=== PATIENT | female | born 1950 | race Caucasian/White ===

== ENCOUNTER 2018-06-14 13:29 | Outpatient (CLI) | payer MEDICARE, MEDICAID, SELFPAY ==
[2018-06-14] VITALS (9 sets, daily range): BP systolic 108–157; BP diastolic 62–84; PULSE 61–69; RESP 16–18; TEMP 36.4; O2SAT 95–100
--- NOTE | 2018-06-14 13:30 | DI.RAD.S_ITS ---
PROCEDURE: PAIN L/S TRANSFORAMINAL INJECT INDICATIONS: INTERVERTEBRAL DISC DISPLACEMENT FINDINGS: Fluoroscopic spot filming was performed to verify placement of spinal needles at the left L L3-L4 level(s), with reference to CT scanning from February of 2014. Appropriate location(s) of the needle tip(s) was confirmed by injection of iodinated contrast. IMPRESSION: Successful left L3-L4 perineural needle tip localization for transforaminal epidural steroid injection. Prior spine fusion procedure from reference to comparison CT 03/11/14 shows the upper tip of the bilateral fusion rods at the L3-L4 posterior element level. There is a normal anatomic variant lumbosacral spine segmentation anatomy in this patient with the lowest fully developed intervertebral disc space considered S1-S2 from the prior 2009 CT. That anatomy designation has carried forward to the more recent MR of the L/S spine and this study. Dictated by: Leonardo Jose M.D. on 06/14/2018 at 15:50 Approved by: Leonardo Jose M.D. on 06/14/2018 at 16:00
--- NOTE | 2018-06-14 14:33 | P.PCN_ITS ---
Procedures Date/Time Date of procedure: 06/14/18 Time of procedure: 14:30 General Procedure description: PROVIDER: Aries Valdez DO Operative Note PREOP DIAGNOSIS 1. FORAMINAL STENOSIS WITH LE SYMPTOMS, POST OP DIAGNOSIS 1. FORAMINAL STENOSIS WITH LE SYMPTOMS, PROCEDURES 1. FLUOROSCOPICALLY GUIDED CONTRAST CONTROLLED TRANSFORAMINAL EPIDURAL STEROID INJECTION - LEFT L3/4 TFESI SURGEON: Aries Valdez, INDICATIONS Hillary is referred by Dr. Wallace for treatment of Foraminal Stenosis with left LE Symptoms FINDINGS Foraminal Nerve Root Compression secondary to disc disease and facet hypertrophy DESCRIPTION OF PROCEDURE Following denial of allergy and review of potential side effects and complications, including, but not necessarily limited to, infection, allergic reaction, local tissue breakdown, stroke, temporary or permanent nerve injury, paralysis, and possible , the patient indicated that the patient understood and agreed to proceed. An informed consent document was signed by the patient, witnessed by a nurse, and placed in the patient's chart. Additionally, other treatment options including medications, modalities, and physical therapy were reviewed with the patient. After review of previous anaesthesic history and IV conscious sedation the patient was deemed safe to proceed with todays procedure with IV conscious sedation as ASA class II designation. Safety time-out was performed to confirm patient ID, procedure to be performed and site of procedure. IV sedation was accomplished with a combination of 3mg was administered by the RN after DO order , titrated to patient comfort during the course of the procedure while the patient remained responsive to all verbal commands In the prone position following sterile prep and drape of the lumbar region, the left L3/4 posterior neuroforamen was identified fluoroscopically. The skin was anesthetized via a 25-gauge 1.5-inch needle with 1% lidocaine solution. At this point, a 25-gauge 3.5-inch spinal needle was atraumatically introduced and advanced under fluoroscopic guidance through the posterior left L3/4 neuroforamen to approximately the anterior aspect of the canal. Depth was confirmed on lateral view. Following negative aspiration, injection of approximately 1.5 cc of Isovue 200 under live fluoroscopy in the AP view confirmed excellent flow along the nerve root, into the epidural space without vascular or intrathecal uptake observed Radiological data, including multiple fluoroscopic views of the lumbosacral spine, reveal a spinal needle at the left L3/4 posterior neuroforamen. Subsequent views show flow of contrast material flowing superiorly and inferiorly along the nerve root confirming epidural flow. Subsequently, a test dose of 1.5 cc of 1% lidocaine solution was administered and patient was observed for two minutes for signs or symptoms of complications , including abdominal pain, shortness of breath, bilateral upper or lower extremity weakness, nausea and vomiting, prior to steroid injection. At this point, a total of 3 cc or 20 mg of dexamethasone and 80mg Depo medrol was injected without incident. The patient tolerated the procedure well without signs or symptoms of complications prior to transfer to the recovery area continued monitoring without incident. The patient was then transferred to the recovery area where they were observed for an appropriate time after the injection. The patient reported a VAS score of 7 prior to the procedure and a post-procedure VAS of 0. Total Fluoroscopy Time: 24.2 seconds Total Conscious Sedation Time: 24min POST OP INSTRUCTIONS The patient was provided a Pain Log to continue to record their response to the target-specific procedure prior to follow-up visit with their referring physician. Additionally, specific post-injection care instructions and a contact number to our office were provided if concerns arise regarding possible complications associated with the procedure are suspected. Aries Valdez, Complications: none
[2018-06-14] MEDS: MIDAZOLAM 5 MG/5 ML VIAL IV (14:39)
[2018-06-14] MEDS: fentaNYL 100 MCG/2 ML INJ IV (14:48)
[2018-06-14] MEDS: methylPREDNISolone acetate 80 MG/ML VIAL INJ (14:51)
[2018-06-14] MEDS: DEXAMETHASONE 10 MG/ML VIAL 20 MG INJ (14:51)
[2018-06-14] MEDS: BUPIVACAINE 0.25% (PF) VIAL 2 ML INJ (14:51)
[2018-06-14] MEDS: IOPAMIDOL 15 ML VIAL 3 ML INJ (14:51)
--- NOTE | 2018-06-14 14:53 | PC.NURSE ---
ASSISTING PT OFF TABLE AND TRANSPORTING TO POST PROC AREA IN STABLE CONDITION
--- NOTE | 2018-06-14 15:23 | PC.NURSE ---
pt returned from procedure room via wheelchair a little drowsy but able to follow directions, got into chair from wheelchair with minimal assist. Resumed monitoring from Domi DOE.
== END 2018-06-14 16:00 ==
LOC: RAD 13:30
PROVIDERS: Family Provider Internal Medicine; PCP Internal Medicine; Visit Provider Physical Medicine & Rehabilitation
DX: M48.061 Spinal stenosis, lumbar region without neurogenic claudication (principal); M51.16 Intervertebral disc disorders with radiculopathy, lumbar region; M51.17 Intervertebral disc disorders with radiculopathy, lumbosacral region; M47.27 Other spondylosis with radiculopathy, lumbosacral region; Z98.1 Arthrodesis status
CPT/HCPCS: 64483; 99152; J1040; J1100; J2250; J3010

== ENCOUNTER 2018-07-25 13:31 | Outpatient (CLI) | payer MEDICARE, MEDICAID, SELFPAY ==
[2018-07-25] VITALS (9 sets, daily range): BP systolic 132–162; BP diastolic 65–78; PULSE 68–81; RESP 14–18; TEMP 36.2; O2SAT 97–100
--- NOTE | 2018-07-25 13:32 | DI.RAD.S_ITS ---
PROCEDURE: PAIN L/SI FACET INJ/BLK 1STL INDICATIONS: Left L5-S1 and S1/S2 FINDINGS: Fluoroscopic spot filming was performed to verify placement of spinal needles at the L5-S1 and S1-S2 level(s), as labeled on the films. Appropriate location(s) of the needle tip(s) was confirmed by injection of iodinated contrast. IMPRESSION: Fluoroscopy for pain management. Dictated by: Julee Wagner M.D. on 07/25/2018 at 17:14 Approved by: Julee Wagner M.D. on 07/25/2018 at 17:31
--- NOTE | 2018-07-25 14:12 | P.PCN_ITS ---
Procedures Date/Time Date of procedure: 07/25/18 Time of procedure: 14:10 General Procedure description: PREOP DIAGNOSIS 1. FACET ARTHROPATHY, 2. AXIAL LBP, 3. MULTILEVEL DDD, POST OP DIAGNOSIS 1. FACET ARTHROPATHY, 2. AXIAL LBP, 3. MULTILEVEL DDD, PROCEDURES 1. FLUORSCOPICALLY GUIDED CONTRAST CONTROLLED FACET JOINT INJECTIONS LEFT L5/L6, L6/S1, PHYSICIAN: Aries Valdez, DO INDICATIONS Hillary is referred by Dr. Wallace for treatment of Axial LBP s/p fusion. FINDINGS Multilevel Facet Arthropathy with Clinically significant axial LBP DESCRIPTION OF PROCEDURE Fluoroscopically guided, contrast-controlled left L5/L6, L6/S1 facet joint injections. Following denial of allergy and review of potential side effects and complications, including, but not necessarily limited to, infection, allergic reaction, local tissue breakdown, stroke, temporary or permanent nerve injury, paralysis, and possible , the patient indicated that the patient understood and agreed to proceed. An informed consent document was signed by the patient, witnessed by a nurse, and placed in the patient's chart. Additionally, other treatment options including medications, modalities, and physical therapy were reviewed with the patient. After review of previous anaesthesic history and IV conscious sedation the patient was deemed safe to proceed with todays procedure with IV conscious sedation as ASA class II designation. Safety time-out was performed to confirm patient ID, procedure to be performed and site of procedure. IV sedation was accomplished with a combination of 5mg of Versed and 50mcg of Fentanyl was administered by the RN after DO order, titrated to patient comfort during the course of the procedure while the patient remained responsive to all verbal commands In the prone position, following sterile prep and drape of the lumbar region, the posterior aspect of the left L5/L6, L6/S1 facet joints were identified fluoroscopically. The skin was anesthetized via a 25-gauge 1.5-inch needle with 1% lidocaine solution into the corresponding facet joints. At this point, a 22- gauge 3.5-inch spinal needle was atraumatically introduced and advanced under fluoroscopic guidance into the corresponding facet joints. Following negative aspiration, injections of approximately 0.2-cc of Isovue 200 confirmed interarticular placement without vascular uptake. Radiological data, including multiple fluoroscopic views of the lumbosacral spine, reveal a spinal needle at the left L5/L6, L6/S1 facet joints. Subsequent views show flow of contrast material both superiorly and inferiorly within the joint space without vascular or intrathecal uptake. At this point, a total of 0.5 cc including a mixture of 0.25 cc Marcaine and 0.25 cc betamethasone was injected without complication into each of the corresponding facet joints. The procedure tolerated the procedure well without signs or symptoms of complications prior to transfer to the recovery area continued monitoring without incident. The patient was then transferred to the recovery area where they were observed for an appropriate period of time after the injection. The patient reported a VAS score of 7 prior to the procedure and a post-procedure VA S of 0. Total Fluoroscopy Time: 13.2 seconds Total Conscious Sedation Time: 24min POST OP INSTRUCTIONS The patient was provided a Pain Log to continue to record their response to the target-specific procedure prior to follow-up visit with their referring physician. Additionally, specific post-injection care instructions and a contact number to our office were provided if concerns arise regarding possible complications associated with the procedure are suspected. Aries Valdez DO Complications: none
[2018-07-25] MEDS: MIDAZOLAM 5 MG/5 ML VIAL IV (14:18)
[2018-07-25] MEDS: fentaNYL 100 MCG/2 ML INJ 50 MCG IV (14:28)
[2018-07-25] MEDS: IOPAMIDOL 15 ML VIAL 3 ML INJ (14:29)
[2018-07-25] MEDS: BETAMETHASONE 30 MG/5 ML MDV 12 MG INJ (14:29)
[2018-07-25] MEDS: BUPIVACAINE 0.5% (PF) VIAL 2 ML INJ (14:29)
--- NOTE | 2018-07-25 14:31 | PC.NURSE ---
ASSISTING PT OFF TABLE AND TRANSPORTING TO POST PROC AREA IN STABLE CONDITION
--- NOTE | 2018-07-25 14:49 | PC.NURSE ---
pt returned from procedure via wheelchair awake and alert. She is able to transfer to the chair with 2 person standby assist, her legs were a little uncooperative. Resumed monitoring from Domi DOE.
--- NOTE | 2018-07-26 13:23 | PC.NURSE ---
Follow up call made post procedure, facet joint injection. Pt reports she is doing OK, has a little bit of a headache and pain in her buttocks where she thinks it's muscle related b/c she was so tense yesterday.
== END 2018-07-25 15:29 ==
LOC: RAD 13:32
PROVIDERS: Family Provider Internal Medicine; PCP Internal Medicine; Visit Provider Physical Medicine & Rehabilitation
DX: M47.817 Spondylosis without myelopathy or radiculopathy, lumbosacral region (principal); M47.816 Spondylosis without myelopathy or radiculopathy, lumbar region; M51.36 Other intervertebral disc degeneration, lumbar region; M54.5 Low back pain; Z98.1 Arthrodesis status
CPT/HCPCS: 64493; 64494; 99152; J0702; J2250; J3010

== ENCOUNTER 2018-11-30 13:26 | Outpatient (CLI) | payer MEDICARE, MEDICAID, SELFPAY ==
[2018-11-30] VITALS (8 sets, daily range): BP systolic 137–163; BP diastolic 63–85; PULSE 66–72; RESP 16–18; TEMP 36.4; O2SAT 98–100
--- NOTE | 2018-11-30 13:29 | DI.RAD.S_ITS ---
PROCEDURE: PAIN L/SI FACET INJ/BLK 1STL INDICATIONS: SPONDYLOSIS FINDINGS: Fluoroscopic spot filming was performed to verify placement of spinal needles on the left than on the right, which are labeled as L5, S1, and S2. Please correlate with intraoperative findings. Appropriate location(s) of the needle tip(s) was confirmed by injection of iodinated contrast. Lower lumbar spine postoperative changes are seen. IMPRESSION: Intraprocedural examination within normal limits. Dictated by: Felix Wei M.D. on 11/30/2018 at 15:57 Approved by: Felix Wei M.D. on 11/30/2018 at 15:58
--- NOTE | 2018-11-30 14:33 | P.PCN_ITS ---
Procedures Date/Time Date of procedure: 11/30/18 Time of procedure: 14:30 General Procedure description: Procedure description: 1. FACET ARTHROPATHY PROCEDURES: 1. BILATERAL- L4, L5 and S1 MB BLOCKS PHYSICIAN: DO DULCE Mason Hillary is referred by Dr. Wallace for treatment of Bilateral Axial LBP. DESCRIPTION OF PROCEDURE Fluoroscopically guided, contrast-controlled bilateral L5, S1 and S2 medial branch blocks with 0.5cc of 0.5% Marcaine. Following review of allergy and review of potential side effects and complications, including, but not necessarily limited to, infection, allergic reaction, local tissue breakdown, nerve injury, paralysis, stroke and possible , the patient indicated that the patient understood and agreed to proceed. An informed consent document was signed by the patient, witnessed by a nurse, and placed in the patient's chart. After review of previous anaesthesic history and IV conscious sedation the patient was deemed safe to proceed with todays procedure with IV conscious zachery tion as ASA class II designation. Safety time-out was performed to confirm patient ID, procedure to be performed and site of procedure. IV sedation was accomplished with a combination of 3mg of Versed and 50mcg of Fentanyl was administered by the RN after DO order, titrated to patient comfort during the course of the procedure while the patient remained responsive to all verbal commands In the prone position, following sterile prep and drape of the lumbar region, the right L5, S1 and S2 anatomical location of the medial branch of the dorsal ramus was identified fluoroscopically. Subsequently an anesthetic skin wheal using 1% lidocaine solution was initiated at each of the anatomical spots. Subsequently then a 22-gauge 3.5-inch spinal needle was atraumatically introduced and advanced under fluoroscopic guidance at each of the corresponding sites at the right L5, S1 and S2 MB. After negative aspiration, 0.2 cc of Isovue 200 was injected, confirming placement without vascular or intrathecal uptake. Subsequently then 0.5 cc of 0.5% Marcaine solution was injected at each of the corresponding sites at the right L5, S1 and S2 medial branch locations. The identical procedure was replicated on the left. The patient tolerated the procedure well without signs or symptoms of complications prior to transfer to the recovery area continued monitoring without incident. Post-procedure, the patient was monitored initiating provocative activities to measure the amount of relief from block of the facetogenic pain. The patient reported a VAS of 7 prior to the procedure and a post-procedure VAS of 1. It has been a pleasure to assist in the diagnostic and therapeutic care of your patient. Total Fluoroscopy Time: 24.8 seconds Total Conscious Sedation Time: 24min POST OP INSTRUCTIONS The patient was provided with a Pain Log to complete over the next several hours and subsequent days prior to the patient's follow up with the ordering physician. If the patient has medical secretary relief to the solution applied, then they may be a candidate for medial branch rhizotomy. The patient is aware, was provided, once again, with a Pain Log and will follow up with the referring physician for review and clinical correlation Aries Valdez DO Complications: none
[2018-11-30] MEDS: fentaNYL 100 MCG/2 ML INJ 50 MCG IV (14:35)
[2018-11-30] MEDS: MIDAZOLAM 5 MG/5 ML VIAL IV (14:35)
[2018-11-30] MEDS: IOPAMIDOL 15 ML VIAL 3 ML INJ (14:44)
[2018-11-30] MEDS: BUPIVACAINE 0.5% (PF) VIAL 5 ML INJ (14:44)
[2018-11-30] MEDS: LIDOCAINE 1% 20 ML INJ 10 ML INJ (14:45)
[2018-11-30] MEDS: BETAMETHASONE 30 MG/5 ML MDV 12 MG INJ (14:45)
--- NOTE | 2018-11-30 15:00 | PC.NURSE ---
Pt tolerated procedure well. Pt able to get up and off table with standby assist. Transferred pt via wheelchair to pre procedure room for continued monitoring with Domi DOE.
--- NOTE | 2018-11-30 15:10 | PC.NURSE ---
ACCEPTED CARE OF PT IN POST PROC AREA IN STABLE CONDITION
== END 2018-11-30 15:41 | disposition home or self-care (01) ==
LOC: RAD 13:27
PROVIDERS: Family Provider Internal Medicine; PCP Internal Medicine; Visit Provider Physical Medicine & Rehabilitation
DX: M47.816 Spondylosis without myelopathy or radiculopathy, lumbar region (principal); M47.817 Spondylosis without myelopathy or radiculopathy, lumbosacral region
CPT/HCPCS: 64493; 64494; 99152; J0702; J2250; J3010

== ENCOUNTER 2019-02-01 10:46 | Outpatient (CLI) | payer MEDICARE, MEDICAID, SELFPAY ==
[2019-02-01] VITALS (11 sets, daily range): BP systolic 129–161; BP diastolic 58–92; PULSE 67–79; RESP 16; TEMP 36.6; O2SAT 98–99
--- NOTE | 2019-02-01 10:49 | DI.RAD.S_ITS ---
PROCEDURE: PAIN L/S MED/LAT N RFA BILAT INDICATIONS: SPONDYLOSIS FINDINGS: Fluoroscopic spot filming was performed to verify placement of spinal needles at the L5, S1, S2 level(s), as labeled on the films. Appropriate location(s) of the needle tip(s) was confirmed by injection of iodinated contrast. Dictated by: Cameron Guzmán M.D. on 02/01/2019 at 13:42 Approved by: Cameron Guzmán M.D. on 02/01/2019 at 13:42
--- NOTE | 2019-02-01 11:55 | PC.NURSE ---
pt request iv on lac.
--- NOTE | 2019-02-01 12:16 | P.PCN_ITS ---
Procedures Date/Time Date of procedure: 02/01/19 Time of procedure: 12:16 General Procedure description: PREOP DIAGNOSIS 1. RECALCITRANT FACET ARTHROPATHY, POST OP DIAGNOSIS 1. RECALCITRANT FACET ARTHROPATHY PROCEDURES 1. BILATERAL L5, S1 MEDIAL BRANCH RADIOFREQUENCY NEUROTOMY AND S2 DORSAL RAMUS BRANCH RADIOFREQUENCY NEUROTOMY, PHYSICIAN: Aries Valdez DO INDICATIONS: Hillary is referred by for treatment of facet arthropathy. DESCRIPTION OF PROCEDURE Bilateral L5, S1 medial branch radiofrequency neurotomy and S2 dorsal ramus radiofrequency neurotomy under fluoroscopy with conscious sedation. The patient is well known to this clinic having undergone previous facet injections with good but temporary relief. The patient has experienced appropriate, concordant relief with previous facet and median branch blocks but the patient's pain has been recalcitrant to further conservative measures. Therefore, based upon the patient's relief and persistent symptoms, the patient is considered an appropriate candidate for facet rhizotomy. All of the patient's questions regarding the risks versus benefits of the procedure, including, but not limited to, bleeding, infection, temporary as well as lasting nerve injury, paralysis, stroke, and , as well treatment alternatives were answered to satisfaction. After obtaining informed consent, denial of pertinent drug allergies, as well as being made aware of the potential risks of bleeding, infection, spinal cord trauma, paralysis, temporary and permanent nerve damage, seizure, stroke, and possible , the patient was brought to the fluoroscopy suite and positioned prone on the fluoroscopy table. The lumbar region was prepped with Betadine and covered with a fenestrated drape in the usual sterile fashion. Appropriate monitors applied including pulse oximeter, pulse, and blood pressure for regular monitoring throughout the procedure. After review of previous anaesthesic history and IV conscious sedation the patient was deemed safe to proceed with todays procedure with IV conscious sedation as ASA class II designation. Safety time-out was performed to confirm patient ID, procedure to be performed and site of procedure. IV sedation was accomplished with a combination of 5mg of Versed and 50mcg of Fentanyl administered by the RN after DO order, titrated to patient comfort during the course of the procedure while the patient remained responsive to all verbal commands. After local infiltration using 1% lidocaine, under fluoroscopic guidance, a 10- cm RF insulated needle with a 10-mm active tip was positioned parallel to the junction of the right sacral ala and the superior articulating process where the S2 dorsal ramus resides. Needle placement was confirmed with sensory stimulation at 50 Hz, with motor stimulation of .5v on the right which produced local stimulation without radicular component. The stimulation was then increased to 1.5v with, once again, only local multifidus stimulation without radicular component. This was then followed by two discreet lesions performed at 80 degrees Celsius for 90 seconds each. The needle was then removed and the identical procedure was performed along the length of the right S1 medial branch with motor stimulation at .7v on the right. The identical procedure was once again performed along the length of the right L5 medial branch with motor stimulation of .5v on the right. The identical procedure was repeated on the left. The patient tolerated the procedure well without signs or symptoms of complications prior to transfer to the recovery area continued monitoring witho ut incident. The patient was then transferred to the recovery area where they were observed for an appropriate period of time after the injection. The patient reported a VAS score of 9 prior to the procedure and a post-procedure VAS of 0. Total Fluoroscopy Time: 22.7 seconds Total Conscious Sedation Time: 34min POST OP INSTRUCTIONS The patient was provided a Pain Log to continue to record the patient's response to the target-specific procedure prior to the patient's follow-up visit with the referring physician. Additionally, specific post-injection care instructions and a contact number to our office were provided if concerns arise regarding possible complications associated with the procedure are suspected. Aries Valdez DO Complications: none
[2019-02-01] MEDS: MIDAZOLAM 5 MG/5 ML VIAL IV (12:28)
[2019-02-01] MEDS: fentaNYL 100 MCG/2 ML INJ 50 MCG IV (12:28)
[2019-02-01] MEDS: LIDOCAINE 1% 20 ML 10 ML INJ (12:41)
[2019-02-01] MEDS: BETAMETHASONE 30 MG/5 ML MDV 12 MG INJ (12:42)
[2019-02-01] MEDS: BUPIVACAINE 0.5% (PF) VIAL 5 ML INJ (12:43)
--- NOTE | 2019-02-01 13:06 | PC.NURSE ---
ASSISTING PT OFF TABLE AND TRANSPORTING TO POST PROC AREA IN STABLE CONDITION. PASSING CARE OF PT OFF TO MADELEINE Sims RN.
--- NOTE | 2019-02-01 13:58 | PC.NURSE ---
tolerating drinking coffee and eating cookies. will be taking melani taxi home.
--- NOTE | 2019-02-01 14:21 | PC.NURSE ---
ambulate to bathroom with steady gait, ready for dc. called melani left message.
== END 2019-02-01 14:36 | disposition home or self-care (01) ==
LOC: RAD 10:48
PROVIDERS: Family Provider Internal Medicine; PCP Internal Medicine; Referring Provider Psychiatry & Neurology Neurology; Visit Provider Physical Medicine & Rehabilitation
DX: M47.817 Spondylosis without myelopathy or radiculopathy, lumbosacral region (principal)
CPT/HCPCS: 64635; 64636; 99152; 99153; J0702; J2250; J3010

== ENCOUNTER → 2019-02-22 14:24 | Outpatient (ROUT) | payer MEDICARE, MEDICAID, SELFPAY ==
[2019-02-22 14:43] LABS: Cholesterol 265 mg/dL (140-199); Glucose 84 mg/dL (80-110); Triglycerides 65 mg/dL (35-150)
[2019-02-22 14:56] LABS: HDL Cholesterol 129 mg/dL (40-60); LDL Cholesterol Calculated 123 mg/dL (<100)
[2019-02-22 15:14] LABS: Thyroid Stimulating Hormone 1.99 uIU/mL (0.47-4.68)
== END ==
PROVIDERS: Family Provider Internal Medicine; PCP Internal Medicine; Visit Provider Internal Medicine
DX: E03.9 Hypothyroidism, unspecified (principal); E78.2 Mixed hyperlipidemia
CPT/HCPCS: 80061; 82947; 84443

== ENCOUNTER 2019-06-11 09:00 | Outpatient (RCR) | payer MEDICARE, MEDICAID, SELFPAY ==
--- NOTE | 2019-03-16 15:55 | PT.OIE ---
Current Diagnoses Multiple sclerosis (03/16/19) Spondylosis without myelopathy or radiculopathy, lumbosacral region (03/16/19) Cervicalgia (03/16/19) Visit Care Team Role Provider Type Hernán Wallace MD Attending Provider Physician Primary Care Provider Specialty: Internal Medicine Address: [address] [place] [address], [id number] Email: [email or web address] Initial Evaluation PT-OP-A Visit Information Start: 03/16/19 07:34 Freq: Status: Active Protocol: Document 03/16/19 08:15 AMB (Rec: 03/16/19 09:39 AMB [email or web address]) Out-Patient Physical Therapy Visit Information Visit Information Visit Type Initial Evaluation Visit Start Time 08:15 Visit Stop Time 09:00 Total Visit Minutes 45 Visit Number 1 PT-OP-B Current Condition Start: 03/16/19 07:34 Freq: Status: Active Protocol: Document 03/16/19 08:15 AMB (Rec: 03/16/19 09:39 AMB [email or web address]) Current Condition History of Current Condition Onset Date 1 year ago Current Complaints neck pain, back pain, deconditioning due to MS History of Current Condition Hillary was diagnosed with MS in 1998. She had a lumbar fusion in 2007. Recently she had a lumbar spine rhizotomy which helped her pain, but she is now noticing pain lower in her back that goes down her left leg that is constant. For about the last year she has had occipital neck pain which has radiated into her head on the right, it is intermittent averaging about once per day and sharp but brief. Hillary lives alone with an elderly dog and cat. She has two steps to enter without a rail, and then 12 steps with a rail to get to her bedroom. 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 She used to dance, and then worked out at the gym, but had a difficult time returning to regular activity since her lumbar fusion in 2007. She walks without assistive device, and denies any falls in the last 6 months. She did have a fall on stairs where she felt her ankle give way a year ago, and does notice increased fatigue by the end of the day and is more likely to trip over her feet at that time. She does report her neurologist has tested her and thinks she has neuropathy, but she does not notice any obvious numbness or tingling in her feet. She does have reduced vision, with practically no vision in the right eye, and reduced peripheral vision in the left. Treatment Goals Patient/Caregiver Goals Return to a gym workout, reduce pain, be able to sit without back pain Prior Functional Status Baseline Function- ADL's Modified Independent Baseline Function- Mobility Modified Independent Current Functional Impairments (Reported) Functional Limitations- ADL's Pt drives but only during the day in places she knows. Sitting is painful, rolling over in bed is painful, goes on slow walks with her dog but can't walk fast. Personal Factors Other Personal Factors That May Effect chronic pain, MS Therapy/Recovery PT-OP-D Balance Start: 03/16/19 07:34 Freq: Status: Active Protocol: Document 03/16/19 08:15 AMB (Rec: 03/16/19 11:16 AMB [email or web address]) Balance Tests Single Limb Standing Single Limb- Right 4 seconds Single Limb- Left 3 seconds Semi-Tandem Standing Semi-Tandem Standing Balance 30 seconds PT-OP-G Mobility & Gait Start: 03/16/19 07:34 Freq: Status: Active Protocol: Document 03/16/19 08:15 AMB (Rec: 03/16/19 11:16 AMB [email or web address]) OP Gait Assessment Comments Gait Comments Pt ambulates without assistive device without obvious foot drop but reports she walks better in the mornings. PT-OP-H Neuro Start: 03/16/19 07:34 Freq: Status: Active Protocol: Document 03/16/19 08:15 AMB (Rec: 03/16/19 11:16 AMB [email or web address]) Sensation Evaluation Comments Summary Comments Pt denies numbness tingling in feet, but does report intermittent difficulty with sensory testing PT-OP-J Posture/Palpation/Skin Start: 03/16/19 07:34 Freq: Status: Active Protocol: Document 03/16/19 08:15 AMB (Rec: 03/16/19 11:16 AMB [email or web address]) Palpation Assessment Location One Palpation Location tenderness at occiput Palpation Findings Soft Tissue Tightness,Muscle Guarding PT-OP-K Range of Motion Start: 03/16/19 07:34 Freq: Status: Active Protocol: Document 03/16/19 08:15 AMB (Rec: 03/16/19 11:16 AMB [email or web address]) Cervical Spine Range of Motion Cervical Spine Active Degrees Testing Position Sitting Flexion 55 Extension 35 Rotation Left 55 Rotation Right 55 Lateral Flexion Left 40 Lateral Flexion Right 40 PT-OP-M Strength Start: 03/16/19 07:34 Freq: Status: Active Protocol: Document 03/16/19 08:15 AMB (Rec: 03/16/19 13:02 AMB [email or web address]) Hip Strength Hip Manual Muscle Testing Right Flexion (L2) 3+ Fair+ Extension (S1) 3 Fair Left Flexion (L2) 3+ Fair+ Extension (S1) 3 Fair Knee Strength Knee Manual Muscle Testing Right Flexion (S2) 4 Good Extension (L3) 4 Good Left Flexion (S2) 4 Good Extension (L3) 4- Good- Ankle/Foot Strength Ankle and Foot Manual Muscle Testing Right Dorsiflexion (L4) 4 Good Plantarflexion (S1) 4 Good Left Dorsiflexion (L4) 4 Good Plantarflexion (S1) 4 Good PT-OP-Q Treatments Start: 03/16/19 07:34 Freq: Status: Active Protocol: Document 03/16/19 08:15 AMB (Rec: 03/16/19 13:02 AMB [email or web address]) Therapeutic Exercises Supine Exercises 2 Supine Exercise Name bridge Reps/Minutes 10 1 Supine Exercise Name SLR Reps/Minutes 10 Standing Exercises 1 Standing Exercise Name heel raise- unilateral Reps/Minutes 10 PT-OP-T Assessment and Plan Start: 03/16/19 07:34 Freq: Status: Active Protocol: Document 03/16/19 08:15 AMB (Rec: 03/16/19 13:02 AMB [email or web address]) Physical Therapy Assessment Rehab Potential Rehabilitation Potential Good Evaluation Complexity Number of Personal Factors/Comorbidities 1-2 Number of Body Systems Impaired 4 or More Clinical Presentation at Evaluation Evolving Impairments Impairments Balance,Functional Activities, Pain,ROM,Strength Goals Two Impairment strength Short Term Goal (STG) Hillary will improve her LE strength to grossly 4/5 or better. STG Duration 4 weeks Retirement Goal (LTG) Hillary will be independent with a home and gym based exercise plan that she can do without flaring her MS, back pain, or neck pain. LTG Duration 8 weeks One Impairment pain Short Term Goal (STG) Hillary will sit upright in a chair for 10 minutes with 5/10 pain or less. STG Duration 4 weeks Retirement Goal (LTG) Hillary will notice decreased frequency of her neck pain so that it is occurring on average one time per week. LTG Duration 8 weeks Assessment Summary Assessment Hillary attends physical therapy with MS, chronic low back pain with history of lumbar fusion and more recent rhizotomy, and right sided neck pain that radiates up into her head intermittently. She will benefit from a physical therapy program to help get her back to a regular exercise program without flaring her MS as well as managing her neck and back pain. While her exercise program will be the focus of PT, she will also benefit from manual therapy and pain management training for her chronic neck and back pain. Physical Therapy Plan Frequency and Duration Frequency of Treatment 2x/Week Duration of Treatment 8 weeks Plan of Care Start Date 03/16/19 Plan of Care End Date 05/11/19 Therapeutic Interventions Therapeutic Interventions Aquatic Therapy,Balance Training,Gait Training,Home Exercise Program,Manual Therapy,Neuromuscular Re- education,Therapeutic Activities,Therapeutic Exercises Modalities Cold Pack/Ice Massage,Electric Stimulation Next Visit Focus/Plan Next Note Type Treatment Note Next Visit Plan Progress HEP for overall deconditioning, assess safety with return to gym, body mechanics including sitting to avoid back pain, manual therapy for neck pain as needed
--- NOTE | 2019-03-21 15:54 | PT.OTN ---
Current Diagnoses Multiple sclerosis (03/21/19) Spondylosis without myelopathy or radiculopathy, lumbosacral region (03/21/19) Cervicalgia (03/21/19) Physical Therapy Treatment Note PT-OP-A Visit Information Start: 03/16/19 07:34 Freq: Status: Active Protocol: Document 03/21/19 08:15 AMB (Rec: 03/21/19 08:25 AMB [id number]) Out-Patient Physical Therapy Visit Information Visit Information Visit Type Treatment Note Visit Start Time 08:15 Visit Stop Time 09:00 Total Visit Minutes 45 Visit Number 2 PT-OP-B Current Condition Start: 03/16/19 07:34 Freq: Status: Active Protocol: Document 03/16/19 08:15 AMB (Rec: 03/16/19 09:39 AMB [email or web address]) Current Condition History of Current Condition Onset Date 1 year ago Current Complaints neck pain, back pain, deconditioning due to MS History of Current Condition Hillary was diagnosed with MS in 1998. She had a lumbar fusion in 2007. Recently she had a lumbar spine rhizotomy which helped her pain, but she is now noticing pain lower in her back that goes down her left leg that is constant. For about the last year she has had occipital neck pain which has radiated into her head on the right, it is intermittent averaging about once per day and sharp but brief. Hillary lives alone with an elderly dog and cat. She has two steps to enter without a rail, and then 12 steps with a rail to get to her bedroom. 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 She used to dance, and then worked out at the gym, but had a difficult time returning to regular activity since her lumbar fusion in 2007. She walks without assistive device, and denies any falls in the last 6 months. She did have a fall on stairs where she felt her ankle give way a year ago, and does notice increased fatigue by the end of the day and is more likley to trip over her feet at that time. She does report her neurologist has tested her and thinks she has neuropathy, but she does not notice any obvious numbness or tingling in her feet. She does have reduced vision, with practically no vision in the right eye, and reduced peripheral vision in the left. Treatment Goals Patient/Caregiver Goals Return to a gym workout, reduce pain, be able to sit without back pain Prior Functional Status Baseline Function- ADL's Modified Independent Baseline Function- Mobility Modified Independent Current Functional Impairments (Reported) Functional Limitations- ADL's Pt drives but only during the day in places she knows. Sitting is painful, rolling over in bed is painful, goes on slow walks with her dog but can't walk fast. Personal Factors Other Personal Factors That May Effect chronic pain, MS Therapy/Recovery PT-OP-C Subjective Start: 03/16/19 07:34 Freq: Status: Active Protocol: Document 03/21/19 08:15 AMB (Rec: 03/21/19 08:25 AMB [email or web address]) OP-PT Subjective Patient Comments Patient Comments Pt reports severe increase in low back pain over the weekend , doing better now, but was unable to walk for a couple days, unsure what caused the increase in pain. PT-OP-D Balance Start: 03/16/19 07:34 Freq: Status: Active Protocol: Document 03/16/19 08:15 AMB (Rec: 03/16/19 11:16 AMB [email or web address]) Balance Tests Single Limb Standing Single Limb- Right 4 seconds Single Limb- Left 3 seconds Semi-Tandem Standing Semi-Tandem Standing Balance 30 seconds PT-OP-G Mobility & Gait Start: 03/16/19 07:34 Freq: Status: Active Protocol: Document 03/16/19 08:15 AMB (Rec: 03/16/19 11:16 AMB [email or web address]) OP Gait Assessment Comments Gait Comments Pt ambulates without assistive device without obvious foot drop but reports she walks better in the mornings. PT-OP-H Neuro Start: 03/16/19 07:34 Freq: Status: Active Protocol: Document 03/16/19 08:15 AMB (Rec: 03/16/19 11:16 AMB [email or web address]) Sensation Evaluation Comments Summary Comments Pt denies numbness tingling in feet, but does report intermittent difficulty with sensory testing PT-OP-J Posture/Palpation/Skin Start: 03/16/19 07:34 Freq: Status: Active Protocol: Document 03/16/19 08:15 AMB (Rec: 03/16/19 11:16 AMB [email or web address]) Palpation Assessment Location One Palpation Location tenderness at occiput Palpation Findings Soft Tissue Tightness,Muscle Guarding PT-OP-K Range of Motion Start: 03/16/19 07:34 Freq: Status: Active Protocol: Document 03/16/19 08:15 AMB (Rec: 03/16/19 11:16 AMB [email or web address]) Cervical Spine Range of Motion Cervical Spine Active Degrees Testing Position Sitting Flexion 55 Extension 35 Rotation Left 55 Rotation Right 55 Lateral Flexion Left 40 Lateral Flexion Right 40 PT-OP-M Strength Start: 03/16/19 07:34 Freq: Status: Active Protocol: Document 03/16/19 08:15 AMB (Rec: 03/16/19 13:02 AMB [email or web address]) Hip Strength Hip Manual Muscle Testing Right Flexion (L2) 3+ Fair+ Extension (S1) 3 Fair Left Flexion (L2) 3+ Fair+ Extension (S1) 3 Fair Knee Strength Knee Manual Muscle Testing Right Flexion (S2) 4 Good Extension (L3) 4 Good Left Flexion (S2) 4 Good Extension (L3) 4- Good- Ankle/Foot Strength Ankle and Foot Manual Muscle Testing Right Dorsiflexion (L4) 4 Good Plantarflexion (S1) 4 Good Left Dorsiflexion (L4) 4 Good Plantarflexion (S1) 4 Good PT-OP-Q Treatments Start: 03/16/19 07:34 Freq: Status: Active Protocol: Document 03/21/19 08:15 AMB (Rec: 03/21/19 15:54 AMB [email or web address]) Cardio Equipment Recumbent Elliptical (Biodex) Duration (Minutes) 6 Resistance 2 Therapeutic Exercises Supine Exercises 5 Supine Exercise Name hamstring stretch Reps/Minutes x10 Comments active, with calf pump 3 Supine Exercise Name posterior pelvic tilt Comments 5 holdx 10 gentle Sitting Exercises 1 Sitting Exercise Name piriformis stretch Reps/Minutes 15x4 Manual Therapy Treatment Soft Tissue Mobilization 1 Body Location low back/ left gluteals Mobilization Type Myofascial Release Intensity/Depth Superficial Body Position Sidelying Comments Discussion of self myofascial release with theracane, tennis ball. PT-OP-T Assessment and Plan Start: 03/16/19 07:34 Freq: Status: Active Protocol: Document 03/21/19 08:15 AMB (Rec: 03/21/19 15:54 AMB [email or web address]) Physical Therapy Assessment Assessment Summary Assessment Pt had a pain flare up over the weekend, so progressed HEP very slowly. Pt overall did well with gentle stretching and posterior pelvic tilt. Physical Therapy Plan Next Visit Focus/Plan Next Note Type Treatment Note Next Visit Plan Ask pt to schedule more appointments at next visit. Progress HEP for overall deconditioning, assess safety with return to gym, body mechanics including sitting to avoid back pain, manual therapy for neck pain as needed
--- NOTE | 2019-03-28 08:51 | PT.OTN ---
Current Diagnoses Multiple sclerosis (03/28/19) Spondylosis without myelopathy or radiculopathy, lumbosacral region (03/28/19) Cervicalgia (03/28/19) Physical Therapy Treatment Note PT-OP-A Visit Information Start: 03/16/19 07:34 Freq: Status: Active Protocol: Document 03/21/19 08:15 AMB (Rec: 03/21/19 08:25 AMB [id number]) Out-Patient Physical Therapy Visit Information Visit Information Visit Type Treatment Note Visit Start Time 08:15 Visit Stop Time 09:00 Total Visit Minutes 45 Visit Number 2 PT-OP-B Current Condition Start: 03/16/19 07:34 Freq: Status: Active Protocol: Document 03/16/19 08:15 AMB (Rec: 03/16/19 09:39 AMB [email or web address]) Current Condition History of Current Condition Onset Date 1 year ago Current Complaints neck pain, back pain, deconditioning due to MS History of Current Condition Hillary was diagnosed with MS in 1998. She had a lumbar fusion in 2007. Recently she had a lumbar spine rhizotomy which helped her pain, but she is now noticing pain lower in her back that goes down her left leg that is constant. For about the last year she has had occipital neck pain which has radiated into her head on the right, it is intermittent averaging about once per day and sharp but brief. Hillary lives alone with an elderly dog and cat. She has two steps to enter without a rail, and then 12 steps with a rail to get to her bedroom. 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 She used to dance, and then worked out at the gym, but had a difficult time returning to regular activity since her lumbar fusion in 2007. She walks without assistive device, and denies any falls in the last 6 months. She did have a fall on stairs where she felt her ankle give way a year ago, and does notice increased fatigue by the end of the day and is more likley to trip over her feet at that time. She does report her neurologist has tested her and thinks she has neuropathy, but she does not notice any obvious numbness or tingling in her feet. She does have reduced vision, with practically no vision in the right eye, and reduced peripheral vision in the left. Treatment Goals Patient/Caregiver Goals Return to a gym workout, reduce pain, be able to sit without back pain Prior Functional Status Baseline Function- ADL's Modified Independent Baseline Function- Mobility Modified Independent Current Functional Impairments (Reported) Functional Limitations- ADL's Pt drives but only during the day in places she knows. Sitting is painful, rolling over in bed is painful, goes on slow walks with her dog but can't walk fast. Personal Factors Other Personal Factors That May Effect chronic pain, MS Therapy/Recovery PT-OP-C Subjective Start: 03/16/19 07:34 Freq: Status: Active Protocol: Document 03/21/19 08:15 AMB (Rec: 03/21/19 08:25 AMB [id number]) OP-PT Subjective Patient Comments Patient Comments Pt reports severe increase in low back pain over the weekend , doing better now, but was unable to walk for a couple days, unsure what caused the increase in pain. PT-OP-D Balance Start: 03/16/19 07:34 Freq: Status: Active Protocol: Document 03/16/19 08:15 AMB (Rec: 03/16/19 11:16 AMB [email or web address]) Balance Tests Single Limb Standing Single Limb- Right 4 seconds Single Limb- Left 3 seconds Semi-Tandem Standing Semi-Tandem Standing Balance 30 seconds PT-OP-G Mobility & Gait Start: 03/16/19 07:34 Freq: Status: Active Protocol: Document 03/16/19 08:15 AMB (Rec: 03/16/19 11:16 AMB [email or web address]) OP Gait Assessment Comments Gait Comments Pt ambulates without assistive device without obvious foot drop but reports she walks better in the mornings. PT-OP-H Neuro Start: 03/16/19 07:34 Freq: Status: Active Protocol: Document 03/16/19 08:15 AMB (Rec: 03/16/19 11:16 AMB [email or web address]) Sensation Evaluation Comments Summary Comments Pt denies numbness tingling in feet, but does report intermittent difficulty with sensory testing PT-OP-J Posture/Palpation/Skin Start: 03/16/19 07:34 Freq: Status: Active Protocol: Document 03/16/19 08:15 AMB (Rec: 03/16/19 11:16 AMB [email or web address]) Palpation Assessment Location One Palpation Location tenderness at occiput Palpation Findings Soft Tissue Tightness,Muscle Guarding PT-OP-K Range of Motion Start: 03/16/19 07:34 Freq: Status: Active Protocol: Document 03/16/19 08:15 AMB (Rec: 03/16/19 11:16 AMB [email or web address]) Cervical Spine Range of Motion Cervical Spine Active Degrees Testing Position Sitting Flexion 55 Extension 35 Rotation Left 55 Rotation Right 55 Lateral Flexion Left 40 Lateral Flexion Right 40 PT-OP-M Strength Start: 03/16/19 07:34 Freq: Status: Active Protocol: Document 03/16/19 08:15 AMB (Rec: 03/16/19 13:02 AMB [email or web address]) Hip Strength Hip Manual Muscle Testing Right Flexion (L2) 3+ Fair+ Extension (S1) 3 Fair Left Flexion (L2) 3+ Fair+ Extension (S1) 3 Fair Knee Strength Knee Manual Muscle Testing Right Flexion (S2) 4 Good Extension (L3) 4 Good Left Flexion (S2) 4 Good Extension (L3) 4- Good- Ankle/Foot Strength Ankle and Foot Manual Muscle Testing Right Dorsiflexion (L4) 4 Good Plantarflexion (S1) 4 Good Left Dorsiflexion (L4) 4 Good Plantarflexion (S1) 4 Good PT-OP-Q Treatments Start: 03/16/19 07:34 Freq: Status: Active Protocol: Document 03/21/19 08:15 AMB (Rec: 03/21/19 15:54 AMB [email or web address]) Cardio Equipment Recumbent Elliptical (Biodex) Duration (Minutes) 6 Resistance 2 Therapeutic Exercises Supine Exercises 5 Supine Exercise Name hamstring stretch Reps/Minutes x10 Comments active, with calf pump 3 Supine Exercise Name posterior pelvic tilt Comments 5 holdx 10 gentle Sitting Exercises 1 Sitting Exercise Name piriformis stretch Reps/Minutes 15x4 Manual Therapy Treatment Soft Tissue Mobilization 1 Body Location low back/ left gluteals Mobilization Type Myofascial Release Intensity/Depth Superficial Body Position Sidelying Comments Discussion of self myofascial release with theracane, tennis ball. PT-OP-T Assessment and Plan Start: 03/16/19 07:34 Freq: Status: Active Protocol: Document 03/21/19 08:15 AMB (Rec: 03/21/19 15:54 AMB [email or web address]) Physical Therapy Assessment Assessment Summary Assessment Pt had a pain flare up over the weekend, so progressed HEP very slowly. Pt overall did well with gentle stretching and posterior pelvic tilt. Physical Therapy Plan Next Visit Focus/Plan Next Note Type Treatment Note Next Visit Plan Ask pt to schedule more appointments at next visit. Progress HEP for overall deconditioning, assess safety with return to gym, body mechanics including sitting to avoid back pain, manual therapy for neck pain as needed
--- NOTE | 2019-03-28 11:22 | PT.OTN ---
Current Diagnoses Multiple sclerosis (03/28/19) Spondylosis without myelopathy or radiculopathy, lumbosacral region (03/28/19) Cervicalgia (03/28/19) Physical Therapy Treatment Note PT-OP-A Visit Information Start: 03/16/19 07:34 Freq: Status: Active Protocol: Document 03/28/19 11:22 SP (Rec: 03/28/19 13:17 SP [email or web address]) Out-Patient Physical Therapy Visit Information Visit Information Visit Type Treatment Note Visit Start Time 10:32 Visit Stop Time 11:22 Total Visit Minutes 50 Visit Number 3 Number of METER MAINTENANCE PERSON Visits 1 PT-OP-B Current Condition Start: 03/16/19 07:34 Freq: Status: Active Protocol: Document 03/16/19 08:15 AMB (Rec: 03/16/19 09:39 AMB [email or web address]) Current Condition History of Current Condition Onset Date 1 year ago Current Complaints neck pain, back pain, deconditioning due to MS History of Current Condition Hillary was diagnosed with MS in 1998. She had a lumbar fusion in 2007. Recently she had a lumbar spine rhizotomy which helped her pain, but she is now noticing pain lower in her back that goes down her left leg that is constant. For about the last year she has had occipital neck pain which has radiated into her head on the right, it is intermittent averaging about once per day and sharp but brief. Hillary lives alone with an elderly dog and cat. She has two steps to enter without a rail, and then 12 steps with a rail to get to her bedroom. 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 She used to dance, and then worked out at the gym, but had a difficult time returning to regular activity since her lumbar fusion in 2007. She walks without assistive device, and denies any falls in the last 6 months. She did have a fall on stairs where she felt her ankle give way a year ago, and does notice increased fatigue by the end of the day and is more likley to trip over her feet at that time. She does report her neurologist has tested her and thinks she has neuropathy, but she does not notice any obvious numbness or tingling in her feet. She does have reduced vision, with practically no vision in the right eye, and reduced peripheral vision in the left. Treatment Goals Patient/Caregiver Goals Return to a gym workout, reduce pain, be able to sit without back pain Prior Functional Status Baseline Function- ADL's Modified Independent Baseline Function- Mobility Modified Independent Current Functional Impairments (Reported) Functional Limitations- ADL's Pt drives but only during the day in places she knows. Sitting is painful, rolling over in bed is painful, goes on slow walks with her dog but can't walk fast. Personal Factors Other Personal Factors That May Effect chronic pain, MS Therapy/Recovery PT-OP-C Subjective Start: 03/16/19 07:34 Freq: Status: Active Protocol: Document 03/28/19 11:22 SP (Rec: 03/28/19 13:17 SP [email or web address]) OP-PT Subjective Patient Comments Patient Comments Pt reported LBP that goes into L glut pre PT today, no concerns or changes since last tx. Pt stated want to get back to her gym equipment routine. PT-OP-D Balance Start: 03/16/19 07:34 Freq: Status: Active Protocol: Document 03/16/19 08:15 AMB (Rec: 03/16/19 11:16 AMB [email or web address]) Balance Tests Single Limb Standing Single Limb- Right 4 seconds Single Limb- Left 3 seconds Semi-Tandem Standing Semi-Tandem Standing Balance 30 seconds PT-OP-G Mobility & Gait Start: 03/16/19 07:34 Freq: Status: Active Protocol: Document 03/16/19 08:15 AMB (Rec: 03/16/19 11:16 AMB [email or web address]) OP Gait Assessment Comments Gait Comments Pt ambulates without assistive device without obvious foot drop but reports she walks better in the mornings. PT-OP-H Neuro Start: 03/16/19 07:34 Freq: Status: Active Protocol: Document 03/16/19 08:15 AMB (Rec: 03/16/19 11:16 AMB [email or web address]) Sensation Evaluation Comments Summary Comments Pt denies numbness tingling in feet, but does report intermittent difficulty with sensory testing PT-OP-J Posture/Palpation/Skin Start: 03/16/19 07:34 Freq: Status: Active Protocol: Document 03/16/19 08:15 AMB (Rec: 03/16/19 11:16 AMB [email or web address]) Palpation Assessment Location One Palpation Location tenderness at occiput Palpation Findings Soft Tissue Tightness,Muscle Guarding PT-OP-K Range of Motion Start: 03/16/19 07:34 Freq: Status: Active Protocol: Document 03/16/19 08:15 AMB (Rec: 03/16/19 11:16 AMB [email or web address]) Cervical Spine Range of Motion Cervical Spine Active Degrees Testing Position Sitting Flexion 55 Extension 35 Rotation Left 55 Rotation Right 55 Lateral Flexion Left 40 Lateral Flexion Right 40 PT-OP-M Strength Start: 03/16/19 07:34 Freq: Status: Active Protocol: Document 03/16/19 08:15 AMB (Rec: 03/16/19 13:02 AMB [email or web address]) Hip Strength Hip Manual Muscle Testing Right Flexion (L2) 3+ Fair+ Extension (S1) 3 Fair Left Flexion (L2) 3+ Fair+ Extension (S1) 3 Fair Knee Strength Knee Manual Muscle Testing Right Flexion (S2) 4 Good Extension (L3) 4 Good Left Flexion (S2) 4 Good Extension (L3) 4- Good- Ankle/Foot Strength Ankle and Foot Manual Muscle Testing Right Dorsiflexion (L4) 4 Good Plantarflexion (S1) 4 Good Left Dorsiflexion (L4) 4 Good Plantarflexion (S1) 4 Good PT-OP-Q Treatments Start: 03/16/19 07:34 Freq: Status: Active Protocol: Document 03/28/19 11:22 SP (Rec: 03/28/19 13:17 SP [email or web address]) Cardio Equipment Recumbent Stepper (Sci-Fit) Duration (Minutes) 5 Resistance 4 Seat Position 8 Therapeutic Exercises Supine Exercises core march Supine Exercise Name sequencial core march Side bilateral Resistance AROM Reps/Minutes 5 reps leading each leg x2 sets Comments cued PPT and core facilitation with slow pacing 5 Supine Exercise Name hamstring stretch Reps/Minutes x10 Comments active, with calf pump 3 Supine Exercise Name posterior pelvic tilt Comments 5 holdx 10 gentle 2 Supine Exercise Name bridge Equipment Used AROM Reps/Minutes 10 Comments midfoot/heel press, PPT glut facilitation 1 Supine Exercise Name SLR Side bilateral Equipment Used ROM Reps/Minutes 10 Comments opposite leg bent, PPT Prone Exercises PF/glut stretch Prone Exercise Name pigeon down or standing leg on table Side left Reps/Minutes 20 hold x2 Comments slow pacing into/out of position, L LE wanted deeper stretch Sitting Exercises 1 Sitting Exercise Name piriformis stretch Reps/Minutes 30 x2 Comments cradle R knee toward L shld PT-OP-T Assessment and Plan Start: 03/16/19 07:34 Freq: Status: Active Protocol: Document 03/28/19 11:22 SP (Rec: 03/28/19 13:17 SP [email or web address]) Physical Therapy Assessment Goals Two Impairment strength Short Term Goal (STG) Hillary will improve her LE strength to grossly 4/5 or better. STG Duration 4 weeks Simonizer Goal (LTG) Hillary will be independent with a home and gym based exercise plan that she can do without flaring her MS, back pain, or neck pain. LTG Duration 8 weeks One Impairment pain Short Term Goal (STG) Hillary will sit upright in a chair for 10 minutes with 5/10 pain or less. STG Duration 4 weks Simonizer Goal (LTG) Hillary will notice decreased frequency of her neck pain so that it is occuring on average one time per week. LTG Duration 8 weeks Assessment Summary Assessment Pt required cues for glut and PPT with facilitation during HEP review to decrease LB recruitment. Modified PF stretch added alternative (see chart) with positive feedback . Pt reported felt more stretched out, no pain. Physical Therapy Plan Frequency and Duration Frequency of Treatment 2x/Week Duration of Treatment 8 weeks Plan of Care Start Date 03/16/19 Plan of Care End Date 05/11/19 Next Visit Focus/Plan Next Note Type Treatment Note Next Visit Plan Review if added more visits. Review HEP and response to added core sequencial july and added anterior L posterior hip stretch (see pic). Add: recombent bike warm up preferred next tx like gym, shuttle recovery, clamshells or lateral band walk, LS stretch: child's pose, cat/ camel, UE scap stability strengthening.
--- NOTE | 2019-04-02 13:24 | PT.OTN ---
Current Diagnoses Multiple sclerosis (04/02/19) Spondylosis without myelopathy or radiculopathy, lumbosacral region (04/02/19) Cervicalgia (04/02/19) Physical Therapy Treatment Note PT-OP-A Visit Information Start: 03/16/19 07:34 Freq: Status: Active Protocol: Document 04/02/19 09:00 AMB (Rec: 04/02/19 13:16 AMB [email or web address]) Out-Patient Physical Therapy Visit Information Visit Information Visit Type Treatment Note Visit Start Time 10:32 Visit Stop Time 11:22 Total Visit Minutes 50 Visit Number 4 Number of YARD HAND Visits 0 PT-OP-B Current Condition Start: 03/16/19 07:34 Freq: Status: Active Protocol: Document 03/16/19 08:15 AMB (Rec: 03/16/19 09:39 AMB [email or web address]) Current Condition History of Current Condition Onset Date 1 year ago Current Complaints neck pain, back pain, deconditioning due to MS History of Current Condition Hillary was diagnosed with MS in 1998. She had a lumbar fusion in 2007. Recently she had a lumbar spine rhizotomy which helped her pain, but she is now noticing pain lower in her back that goes down her left leg that is constant. For about the last year she has had occipital neck pain which has radiated into her head on the right, it is intermittent averaging about once per day and sharp but brief. Hillary lives alone with an elderly dog and cat. She has two steps to enter without a rail, and then 12 steps with a rail to get to her bedroom. 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 She used to dance, and then worked out at the gym, but had a difficult time returning to regular activity since her lumbar fusion in 2007. She walks without assistive device, and denies any falls in the last 6 months. She did have a fall on stairs where she felt her ankle give way a year ago, and does notice increased fatigue by the end of the day and is more likley to trip over her feet at that time. She does report her neurologist has tested her and thinks she has neuropathy, but she does not notice any obvious numbness or tingling in her feet. She does have reduced vision, with practically no vision in the right eye, and reduced peripheral vision in the left. Treatment Goals Patient/Caregiver Goals Return to a gym workout, reduce pain, be able to sit without back pain Prior Functional Status Baseline Function- ADL's Modified Independent Baseline Function- Mobility Modified Independent Current Functional Impairments (Reported) Functional Limitations- ADL's Pt drives but only during the day in places she knows. Sitting is painful, rolling over in bed is painful, goes on slow walks with her dog but can't walk fast. Personal Factors Other Personal Factors That May Effect chronic pain, MS Therapy/Recovery PT-OP-C Subjective Start: 03/16/19 07:34 Freq: Status: Active Protocol: Document 04/02/19 09:00 AMB (Rec: 04/02/19 13:16 AMB [email or web address]) OP-PT Subjective Patient Comments Patient Comments Pt reports that overall low back is less intense, more like a 6/10. Her goals are to be able to work out at the gym and she would also like us to try to give her some ideas of what to do about her neck pain. PT-OP-D Balance Start: 03/16/19 07:34 Freq: Status: Active Protocol: Document 03/16/19 08:15 AMB (Rec: 03/16/19 11:16 AMB [email or web address]) Balance Tests Single Limb Standing Single Limb- Right 4 seconds Single Limb- Left 3 seconds Semi-Tandem Standing Semi-Tandem Standing Balance 30 seconds PT-OP-G Mobility & Gait Start: 03/16/19 07:34 Freq: Status: Active Protocol: Document 03/16/19 08:15 AMB (Rec: 03/16/19 11:16 AMB [email or web address]) OP Gait Assessment Comments Gait Comments Pt ambulates without assistive device without obvious foot drop but reports she walks better in the mornings. PT-OP-H Neuro Start: 03/16/19 07:34 Freq: Status: Active Protocol: Document 03/16/19 08:15 AMB (Rec: 03/16/19 11:16 AMB [email or web address]) Sensation Evaluation Comments Summary Comments Pt denies numbness tingling in feet, but does report intermittent difficulty with sensory testing PT-OP-J Posture/Palpation/Skin Start: 03/16/19 07:34 Freq: Status: Active Protocol: Document 03/16/19 08:15 AMB (Rec: 03/16/19 11:16 AMB [email or web address]) Palpation Assessment Location One Palpation Location tenderness at occiput Palpation Findings Soft Tissue Tightness,Muscle Guarding PT-OP-K Range of Motion Start: 03/16/19 07:34 Freq: Status: Active Protocol: Document 03/16/19 08:15 AMB (Rec: 03/16/19 11:16 AMB [email or web address]) Cervical Spine Range of Motion Cervical Spine Active Degrees Testing Position Sitting Flexion 55 Extension 35 Rotation Left 55 Rotation Right 55 Lateral Flexion Left 40 Lateral Flexion Right 40 PT-OP-M Strength Start: 03/16/19 07:34 Freq: Status: Active Protocol: Document 03/16/19 08:15 AMB (Rec: 03/16/19 13:02 AMB [email or web address]) Hip Strength Hip Manual Muscle Testing Right Flexion (L2) 3+ Fair+ Extension (S1) 3 Fair Left Flexion (L2) 3+ Fair+ Extension (S1) 3 Fair Knee Strength Knee Manual Muscle Testing Right Flexion (S2) 4 Good Extension (L3) 4 Good Left Flexion (S2) 4 Good Extension (L3) 4- Good- Ankle/Foot Strength Ankle and Foot Manual Muscle Testing Right Dorsiflexion (L4) 4 Good Plantarflexion (S1) 4 Good Left Dorsiflexion (L4) 4 Good Plantarflexion (S1) 4 Good PT-OP-Q Treatments Start: 03/16/19 07:34 Freq: Status: Active Protocol: Document 04/02/19 09:00 AMB (Rec: 04/02/19 09:56 AMB [email or web address]) Cardio Equipment Recumbent Stepper (Sci-Fit) Duration (Minutes) 5 Resistance 4 Seat Position 8 Gym Equipment Cable Column (Body Solid) Other- 1 Details rows standing at column Resistance 10 Reps/Time 2x10 Hip Adduction Resistance 30 Reps/Time 2x10 Hip Abduction Resistance 20 Reps/Time 2x10 Shuttle Recovery Bilateral Heel Raises Resistance 50 Shuttle Recovery Platform Stable Reps/Time 2x10 Bilateral Squats Resistance 75 Shuttle Recovery Platform Stable Reps/Time 2x10 Therapeutic Exercises Sitting Exercises 2 Sitting Exercise Name cervical isometric Reps/Minutes 5 hold x 5 Comments rotation in neutral 1 Sitting Exercise Name piriformis stretch Reps/Minutes 30 x2 Comments cradle R knee toward L shld Manual Therapy Treatment Soft Tissue Mobilization 1 Body Location R UT/ levator scap Mobilization Type Myofascial Release Intensity/Depth Moderate Body Position Hooklying Manual Traction Cervical Body Position Hooklying Comments c sub occipital release PT-OP-T Assessment and Plan Start: 03/16/19 07:34 Freq: Status: Active Protocol: Document 04/02/19 09:00 AMB (Rec: 04/02/19 13:16 AMB [email or web address]) Physical Therapy Assessment Assessment Summary Assessment Pt tolerated gym exercises well, did require min verbal cues for posture, breathing, core engagement. Will need to follow up more on cervical spine, pt did have more trigger points on the right than the left, but they did not reproduce the intense pain that she has intermittently. Physical Therapy Plan Next Visit Focus/Plan Next Note Type Treatment Note Next Visit Plan Review pt response to instruction in machine usage. Continue to assess cervical ROM and progress C-spine HEP as tolerated. Review HEP and response to added core sequencial july and added anterior L posterior hip stretch (see pic). Add: recombent bike warm up preferred next tx like gym, shuttle recovery, clamshells or lateral band walk, LS stretch: child's pose, cat/ camel, UE scap stability strengthening.
--- NOTE | 2019-04-04 15:20 | PT.OTN ---
Current Diagnoses Multiple sclerosis (04/04/19) Spondylosis without myelopathy or radiculopathy, lumbosacral region (04/04/19) Cervicalgia (04/04/19) Physical Therapy Treatment Note PT-OP-A Visit Information Start: 03/16/19 07:34 Freq: Status: Active Protocol: Document 04/04/19 14:30 SP (Rec: 04/04/19 15:34 SP [id number]) Out-Patient Physical Therapy Visit Information Visit Information Visit Type Treatment Note Visit Start Time 14:30 Visit Stop Time 15:20 Total Visit Minutes 50 Visit Number 5 Number of FILM SPLICER Visits 1 PT-OP-B Current Condition Start: 03/16/19 07:34 Freq: Status: Active Protocol: Document 03/16/19 08:15 AMB (Rec: 03/16/19 09:39 AMB [email or web address]) Current Condition History of Current Condition Onset Date 1 year ago Current Complaints neck pain, back pain, deconditioning due to MS History of Current Condition Hillary was diagnosed with MS in 1998. She had a lumbar fusion in 2007. Recently she had a lumbar spine rhizotomy which helped her pain, but she is now noticing pain lower in her back that goes down her left leg that is constant. For about the last year she has had occipital neck pain which has radiated into her head on the right, it is intermittent averaging about once per day and sharp but brief. Hillary lives alone with an elderly dog and cat. She has two steps to enter without a rail, and then 12 steps with a rail to get to her bedroom. 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 She used to dance, and then worked out at the gym, but had a difficult time returning to regular activity since her lumbar fusion in 2007. She walks without assistive device, and denies any falls in the last 6 months. She did have a fall on stairs where she felt her ankle give way a year ago, and does notice increased fatigue by the end of the day and is more likley to trip over her feet at that time. She does report her neurologist has tested her and thinks she has neuropathy, but she does not notice any obvious numbness or tingling in her feet. She does have reduced vision, with practically no vision in the right eye, and reduced peripheral vision in the left. Treatment Goals Patient/Caregiver Goals Return to a gym workout, reduce pain, be able to sit without back pain Prior Functional Status Baseline Function- ADL's Modified Independent Baseline Function- Mobility Modified Independent Current Functional Impairments (Reported) Functional Limitations- ADL's Pt drives but only during the day in places she knows. Sitting is painful, rolling over in bed is painful, goes on slow walks with her dog but can't walk fast. Personal Factors Other Personal Factors That May Effect chronic pain, MS Therapy/Recovery PT-OP-C Subjective Start: 03/16/19 07:34 Freq: Status: Active Protocol: Document 04/04/19 14:30 SP (Rec: 04/04/19 15:34 SP [id number]) OP-PT Subjective Patient Comments Patient Comments Pt stated still sore in L knee and LB from adding gym equipment exercises last visit it's been a while and not used to it, no pain or new concerns or changes since last tx. PT-OP-D Balance Start: 03/16/19 07:34 Freq: Status: Active Protocol: Document 03/16/19 08:15 AMB (Rec: 03/16/19 11:16 AMB [email or web address]) Balance Tests Single Limb Standing Single Limb- Right 4 seconds Single Limb- Left 3 seconds Semi-Tandem Standing Semi-Tandem Standing Balance 30 seconds PT-OP-G Mobility & Gait Start: 03/16/19 07:34 Freq: Status: Active Protocol: Document 03/16/19 08:15 AMB (Rec: 03/16/19 11:16 AMB [email or web address]) OP Gait Assessment Comments Gait Comments Pt ambulates without assistive device without obvious foot drop but reports she walks better in the mornings. PT-OP-H Neuro Start: 03/16/19 07:34 Freq: Status: Active Protocol: Document 03/16/19 08:15 AMB (Rec: 03/16/19 11:16 AMB [email or web address]) Sensation Evaluation Comments Summary Comments Pt denies numbness tingling in feet, but does report intermittent difficulty with sensory testing PT-OP-J Posture/Palpation/Skin Start: 03/16/19 07:34 Freq: Status: Active Protocol: Document 03/16/19 08:15 AMB (Rec: 03/16/19 11:16 AMB [email or web address]) Palpation Assessment Location One Palpation Location tenderness at occiput Palpation Findings Soft Tissue Tightness,Muscle Guarding PT-OP-K Range of Motion Start: 03/16/19 07:34 Freq: Status: Active Protocol: Document 03/16/19 08:15 AMB (Rec: 03/16/19 11:16 AMB [email or web address]) Cervical Spine Range of Motion Cervical Spine Active Degrees Testing Position Sitting Flexion 55 Extension 35 Rotation Left 55 Rotation Right 55 Lateral Flexion Left 40 Lateral Flexion Right 40 PT-OP-M Strength Start: 03/16/19 07:34 Freq: Status: Active Protocol: Document 03/16/19 08:15 AMB (Rec: 03/16/19 13:02 AMB [email or web address]) Hip Strength Hip Manual Muscle Testing Right Flexion (L2) 3+ Fair+ Extension (S1) 3 Fair Left Flexion (L2) 3+ Fair+ Extension (S1) 3 Fair Knee Strength Knee Manual Muscle Testing Right Flexion (S2) 4 Good Extension (L3) 4 Good Left Flexion (S2) 4 Good Extension (L3) 4- Good- Ankle/Foot Strength Ankle and Foot Manual Muscle Testing Right Dorsiflexion (L4) 4 Good Plantarflexion (S1) 4 Good Left Dorsiflexion (L4) 4 Good Plantarflexion (S1) 4 Good PT-OP-Q Treatments Start: 03/16/19 07:34 Freq: Status: Active Protocol: Document 04/04/19 14:30 SP (Rec: 04/04/19 15:34 SP [id number]) Cardio Equipment Recumbent Elliptical (Biodex) Duration (Minutes) 5 Resistance 4 Seat Position 7 Gym Equipment Cable Column (Body Solid) HS curl Details back 7, leg 10 Resistance 20 Reps/Time 2x10 Leg Extension Details back 7, cued awareness of limit 10* and not end if front knee discomfort Resistance 10 Reps/Time 2x10 Lat Pull Down Resistance 20# x10, 30# 2x10 row Resistance 20 Reps/Time 2x10 Hip Adduction Details pin in #2 Resistance 30 Reps/Time 2x10 Hip Abduction Details pin in # 5 Resistance 20 Reps/Time 2x10 Shuttle Recovery Bilateral Heel Raises Resistance 50 Shuttle Recovery Platform Stable Reps/Time 2x10 Bilateral Squats Resistance 75 Shuttle Recovery Platform Stable Reps/Time 2x10 Therapeutic Exercises Supine Exercises LS rotation Side bilateral Reps/Minutes 30 x2 Comments single leg knee bent cross over opposite LE, UE assist further stretch LS core march Supine Exercise Name sequencial core march Side bilateral Resistance AROM Reps/Minutes 5 reps leading each leg x2 sets Comments cued PPT and core facilitation with slow pacing 5 Supine Exercise Name hamstring stretch Side bilateral Reps/Minutes x10 Comments active, with calf pump Standing Exercises 1 Standing Exercise Name Bartlett/ runners stretch Side bilateral Equipment Used table Reps/Minutes 30 x2 Comments leg support on table hip ER PT-OP-T Assessment and Plan Start: 03/16/19 07:34 Freq: Status: Active Protocol: Document 04/04/19 14:30 SP (Rec: 04/04/19 15:34 SP [id number]) Physical Therapy Assessment Goals Two Impairment strength Short Term Goal (STG) Hillary will improve her LE strength to grossly 4/5 or better. STG Duration 4 weeks Chef Manager Goal (LTG) Hillary will be independent with a home and gym based exercise plan that she can do without flaring her MS, back pain, or neck pain. LTG Duration 8 weeks One Impairment pain Short Term Goal (STG) Hillary will sit upright in a chair for 10 minutes with 5/10 pain or less. STG Duration 4 weks [facility] Goal (LTG) Hillary will notice decreased frequency of her neck pain so that it is occuring on average one time per week. LTG Duration 8 weeks Assessment Summary Assessment Tx focused on review gym equipment, added LE ext and hs curl machine with no adverse affects. Cued if anterior knee discomfort at end range to limit to 10* ext to facilitate mid quad contraction with slow control pacing. Pt reporte feel pretty good end of tx, less sore than when arrived. Cued for scap stab during seated row and lat pull down. Pt stated LB does hurt in standing when reaching into lateral lean is this ok to do recommended slow and tolerable range but stop if hurting. FILM SPLICER recommended when returns to the gym to ask for orientation to set up each machine for her body type for safety. Physical Therapy Plan Frequency and Duration Frequency of Treatment 2x/Week Duration of Treatment 8 weeks Plan of Care Start Date 03/16/19 Plan of Care End Date 05/11/19 Therapeutic Interventions Therapeutic Interventions Aquatic Therapy,Balance Training,Gait Training,Home Exercise Program,Manual Therapy,Neuromuscular Re- education,Therapeutic Activities,Therapeutic Exercises Modalities Cold Pack/Ice Massage,Electric Stimulation Next Visit Focus/Plan Next Note Type Treatment Note Next Visit Plan Next tx: Review response to machine and added leg ext and curl, row and lat pull down. POC PT: Continue to assess cervical ROM and progress C- spine HEP as tolerated. Review HEP and response to added core sequencial july and added anterior L posterior hip stretch (see pic). Add: recombent bike warm up preferred next tx like gym, shuttle recovery, clamshells or lateral band walk, LS stretch: child's pose, cat/ camel, UE scap stability strengthening.
--- NOTE | 2019-04-09 13:05 | PT-OP ANOTE ---
Pt called less than 24 hr notice, stated feeling sick, possible flu. [employer] ARCHITECT called to follow up and left message on voicemail next appt 04/11 at 945. Hope feel better soon.
--- NOTE | 2019-04-11 10:30 | PT.OTN ---
Current Diagnoses Multiple sclerosis (04/11/19) Spondylosis without myelopathy or radiculopathy, lumbosacral region (04/11/19) Cervicalgia (04/11/19) Physical Therapy Treatment Note PT-OP-A Visit Information Start: 03/16/19 07:34 Freq: Status: Active Protocol: Document 04/11/19 09:51 SP (Rec: 04/11/19 10:04 SP [id number]) Out-Patient Physical Therapy Visit Information Visit Information Visit Type Treatment Note Visit Start Time 09:51 Visit Stop Time 10:30 Total Visit Minutes 39 Visit Number 6 Number of DELIVERY OF SHOPPING NEWS Visits 2 PT-OP-B Current Condition Start: 03/16/19 07:34 Freq: Status: Active Protocol: Document 03/16/19 08:15 AMB (Rec: 03/16/19 09:39 AMB [email or web address]) Current Condition History of Current Condition Onset Date 1 year ago Current Complaints neck pain, back pain, deconditioning due to MS History of Current Condition Hillary was diagnosed with MS in 1998. She had a lumbar fusion in 2007. Recently she had a lumbar spine rhizotomy which helped her pain, but she is now noticing pain lower in her back that goes down her left leg that is constant. For about the last year she has had occipital neck pain which has radiated into her head on the right, it is intermittent averaging about once per day and sharp but brief. Hillary lives alone with an elderly dog and cat. She has two steps to enter without a rail, and then 12 steps with a rail to get to her bedroom. 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 She used to dance, and then worked out at the gym, but had a difficult time returning to regular activity since her lumbar fusion in 2007. She walks without assistive device, and denies any falls in the last 6 months. She did have a fall on stairs where she felt her ankle give way a year ago, and does notice increased fatigue by the end of the day and is more likley to trip over her feet at that time. She does report her neurologist has tested her and thinks she has neuropathy, but she does not notice any obvious numbness or tingling in her feet. She does have reduced vision, with practically no vision in the right eye, and reduced peripheral vision in the left. Treatment Goals Patient/Caregiver Goals Return to a gym workout, reduce pain, be able to sit without back pain Prior Functional Status Baseline Function- ADL's Modified Independent Baseline Function- Mobility Modified Independent Current Functional Impairments (Reported) Functional Limitations- ADL's Pt drives but only during the day in places she knows. Sitting is painful, rolling over in bed is painful, goes on slow walks with her dog but can't walk fast. Personal Factors Other Personal Factors That May Effect chronic pain, MS Therapy/Recovery PT-OP-C Subjective Start: 03/16/19 07:34 Freq: Status: Active Protocol: Document 04/11/19 09:51 SP (Rec: 04/11/19 10:04 SP [id number]) OP-PT Subjective Patient Comments Patient Comments Pt stated feeling like has a cold, tired and LLBP is 8/10. Did well after last tx with gym equip exercises. Wants to review them again and some HEP at home today and add more core strengthening and flexibility. PT-OP-D Balance Start: 03/16/19 07:34 Freq: Status: Active Protocol: Document 03/16/19 08:15 AMB (Rec: 03/16/19 11:16 AMB [email or web address]) Balance Tests Single Limb Standing Single Limb- Right 4 seconds Single Limb- Left 3 seconds Semi-Tandem Standing Semi-Tandem Standing Balance 30 seconds PT-OP-G Mobility & Gait Start: 03/16/19 07:34 Freq: Status: Active Protocol: Document 03/16/19 08:15 AMB (Rec: 03/16/19 11:16 AMB [email or web address]) OP Gait Assessment Comments Gait Comments Pt ambulates without assistive device without obvious foot drop but reports she walks better in the mornings. PT-OP-H Neuro Start: 03/16/19 07:34 Freq: Status: Active Protocol: Document 03/16/19 08:15 AMB (Rec: 03/16/19 11:16 AMB [email or web address]) Sensation Evaluation Comments Summary Comments Pt denies numbness tingling in feet, but does report intermittent difficulty with sensory testing PT-OP-J Posture/Palpation/Skin Start: 03/16/19 07:34 Freq: Status: Active Protocol: Document 03/16/19 08:15 AMB (Rec: 03/16/19 11:16 AMB [email or web address]) Palpation Assessment Location One Palpation Location tenderness at occiput Palpation Findings Soft Tissue Tightness,Muscle Guarding PT-OP-K Range of Motion Start: 03/16/19 07:34 Freq: Status: Active Protocol: Document 03/16/19 08:15 AMB (Rec: 03/16/19 11:16 AMB [email or web address]) Cervical Spine Range of Motion Cervical Spine Active Degrees Testing Position Sitting Flexion 55 Extension 35 Rotation Left 55 Rotation Right 55 Lateral Flexion Left 40 Lateral Flexion Right 40 PT-OP-M Strength Start: 03/16/19 07:34 Freq: Status: Active Protocol: Document 03/16/19 08:15 AMB (Rec: 03/16/19 13:02 AMB [email or web address]) Hip Strength Hip Manual Muscle Testing Right Flexion (L2) 3+ Fair+ Extension (S1) 3 Fair Left Flexion (L2) 3+ Fair+ Extension (S1) 3 Fair Knee Strength Knee Manual Muscle Testing Right Flexion (S2) 4 Good Extension (L3) 4 Good Left Flexion (S2) 4 Good Extension (L3) 4- Good- Ankle/Foot Strength Ankle and Foot Manual Muscle Testing Right Dorsiflexion (L4) 4 Good Plantarflexion (S1) 4 Good Left Dorsiflexion (L4) 4 Good Plantarflexion (S1) 4 Good PT-OP-Q Treatments Start: 03/16/19 07:34 Freq: Status: Active Protocol: Document 04/11/19 09:51 SP (Rec: 04/11/19 11:41 SP [id number]) Cardio Equipment Recumbent Stepper (Sci-Fit) Duration (Minutes) 5 Resistance 4 Seat Position 8 Therapeutic Exercises Supine Exercises LS rotation Supine Exercise Name HEP review Side bilateral Reps/Minutes 30 x2 Comments single leg knee bent cross over opposite LE, UE assist further stretch LS core march Supine Exercise Name sequencial core march Side bilateral Resistance AROM Reps/Minutes 5 reps leading each leg x1 sets Comments HEP review cued PPT and core facilitation with slow pacing 5 Supine Exercise Name hamstring stretch Side bilateral Reps/Minutes x10 Comments HEP review active, with calf pump Prone Exercises QL stretch Prone Exercise Name child's pose side bend Reps/Minutes 30 x2 R and L PF/glut stretch Prone Exercise Name pigeon down Side bilateral Reps/Minutes 30 x3 Comments on floor Sidelying Exercises clam shell Side bilateral Equipment Used YTB Reps/Minutes 10 Comments slow pacing Standing Exercises side step antirotation Resistance Tb #1 Reps/Minutes 3x5 side step R and L miracle curl Standing Exercise Name segmental trunk flexion Resistance 2# DB BUE Reps/Minutes 2x10 Comments back to wall, DB slide down legs or dangling front, slow pacing PT-OP-T Assessment and Plan Start: 03/16/19 07:34 Freq: Status: Active Protocol: Document 04/11/19 09:51 SP (Rec: 04/11/19 10:04 SP [id number]) Physical Therapy Assessment Goals Two Impairment strength Short Term Goal (STG) Hillary will improve her LE strength to grossly 4/5 or better. STG Duration 4 weeks [facility] Goal (LTG) Hillary will be independent with a home and gym based exercise plan that she can do without flaring her MS, back pain, or neck pain. LTG Duration 8 weeks One Impairment pain Short Term Goal (STG) Hillary will sit upright in a chair for 10 minutes with 5/10 pain or less. STG Duration 4 weks Rocket Motor Tester Goal (LTG) Hillary will notice decreased frequency of her neck pain so that it is occuring on average one time per week. LTG Duration 8 weeks Assessment Summary Assessment Tx focused on gym and home HEP , added sequencial trunk flexion and anti rotation side step for core strengthening and active flexibility to assist decrease discomfort and tightness reported beginning of tx with positive feedback of reduced pain to 4/10 LBP L> R. Physical Therapy Plan Frequency and Duration Frequency of Treatment 2x/Week Duration of Treatment 8 weeks Plan of Care Start Date 03/16/19 Plan of Care End Date 05/11/19 Therapeutic Interventions Therapeutic Interventions Aquatic Therapy,Balance Training,Gait Training,Home Exercise Program,Manual Therapy,Neuromuscular Re- education,Therapeutic Activities,Therapeutic Exercises Modalities Cold Pack/Ice Massage,Electric Stimulation Next Visit Focus/Plan Next Visit Plan Assess added antirotation side step, miracle curls and add pelvic alignment and possible ball roll hip at wall for self decompression/stretch L hip on own for comfort to compliment stretching support. Continue per PT POC recommendations: to assess cervical ROM and progress C- spine HEP as tolerated. Add: recombent bike warm up preferred next tx like gym, shuttle recovery, clamshells or lateral band walk, LS stretch: child's pose, cat/ camel, UE scap stability strengthening.
--- NOTE | 2019-04-18 10:30 | PT.OTN ---
Current Diagnoses Multiple sclerosis (04/18/19) Spondylosis without myelopathy or radiculopathy, lumbosacral region (04/18/19) Cervicalgia (04/18/19) Physical Therapy Treatment Note PT-OP-A Visit Information Start: 03/16/19 07:34 Freq: Status: Active Protocol: Document 04/18/19 09:50 SP (Rec: 04/18/19 10:35 SP [id number]) Out-Patient Physical Therapy Visit Information Visit Information Visit Type Treatment Note Visit Start Time 09:50 Visit Stop Time 10:30 Total Visit Minutes 0 Visit Number 7 Number of CLASSROOM MONITOR Visits 3 PT-OP-B Current Condition Start: 03/16/19 07:34 Freq: Status: Active Protocol: Document 03/16/19 08:15 AMB (Rec: 03/16/19 09:39 AMB [email or web address]) Current Condition History of Current Condition Onset Date 1 year ago Current Complaints neck pain, back pain, deconditioning due to MS History of Current Condition Hillary was diagnosed with MS in 1998. She had a lumbar fusion in 2007. Recently she had a lumbar spine rhizotomy which helped her pain, but she is now noticing pain lower in her back that goes down her left leg that is constant. For about the last year she has had occipital neck pain which has radiated into her head on the right, it is intermittent averaging about once per day and sharp but brief. Hillary lives alone with an elderly dog and cat. She has two steps to enter without a rail, and then 12 steps with a rail to get to her bedroom. 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 She used to dance, and then worked out at the gym, but had a difficult time returning to regular activity since her lumbar fusion in 2007. She walks without assistive device, and denies any falls in the last 6 months. She did have a fall on stairs where she felt her ankle give way a year ago, and does notice increased fatigue by the end of the day and is more likley to trip over her feet at that time. She does report her neurologist has tested her and thinks she has neuropathy, but she does not notice any obvious numbness or tingling in her feet. She does have reduced vision, with practically no vision in the right eye, and reduced peripheral vision in the left. Treatment Goals Patient/Caregiver Goals Return to a gym workout, reduce pain, be able to sit without back pain Prior Functional Status Baseline Function- ADL's Modified Independent Baseline Function- Mobility Modified Independent Current Functional Impairments (Reported) Functional Limitations- ADL's Pt drives but only during the day in places she knows. Sitting is painful, rolling over in bed is painful, goes on slow walks with her dog but can't walk fast. Personal Factors Other Personal Factors That May Effect chronic pain, MS Therapy/Recovery PT-OP-C Subjective Start: 03/16/19 07:34 Freq: Status: Active Protocol: Document 04/18/19 09:50 SP (Rec: 04/18/19 10:35 SP [id number]) OP-PT Subjective Patient Comments Patient Comments Pt stated L LB not doing well today 12/30 radiating posterior thigh. Pt stated didn't get to her exercises much over the weekend, had early family dinner out of town. PT-OP-D Balance Start: 03/16/19 07:34 Freq: Status: Active Protocol: Document 03/16/19 08:15 AMB (Rec: 03/16/19 11:16 AMB [email or web address]) Balance Tests Single Limb Standing Single Limb- Right 4 seconds Single Limb- Left 3 seconds Semi-Tandem Standing Semi-Tandem Standing Balance 30 seconds PT-OP-G Mobility & Gait Start: 03/16/19 07:34 Freq: Status: Active Protocol: Document 03/16/19 08:15 AMB (Rec: 03/16/19 11:16 AMB [email or web address]) OP Gait Assessment Comments Gait Comments Pt ambulates without assistive device without obvious foot drop but reports she walks better in the mornings. PT-OP-H Neuro Start: 03/16/19 07:34 Freq: Status: Active Protocol: Document 03/16/19 08:15 AMB (Rec: 03/16/19 11:16 AMB [email or web address]) Sensation Evaluation Comments Summary Comments Pt denies numbness tingling in feet, but does report intermittent difficulty with sensory testing PT-OP-J Posture/Palpation/Skin Start: 03/16/19 07:34 Freq: Status: Active Protocol: Document 03/16/19 08:15 AMB (Rec: 03/16/19 11:16 AMB [email or web address]) Palpation Assessment Location One Palpation Location tenderness at occiput Palpation Findings Soft Tissue Tightness,Muscle Guarding PT-OP-K Range of Motion Start: 03/16/19 07:34 Freq: Status: Active Protocol: Document 03/16/19 08:15 AMB (Rec: 03/16/19 11:16 AMB [email or web address]) Cervical Spine Range of Motion Cervical Spine Active Degrees Testing Position Sitting Flexion 55 Extension 35 Rotation Left 55 Rotation Right 55 Lateral Flexion Left 40 Lateral Flexion Right 40 PT-OP-M Strength Start: 03/16/19 07:34 Freq: Status: Active Protocol: Document 03/16/19 08:15 AMB (Rec: 03/16/19 13:02 AMB [email or web address]) Hip Strength Hip Manual Muscle Testing Right Flexion (L2) 3+ Fair+ Extension (S1) 3 Fair Left Flexion (L2) 3+ Fair+ Extension (S1) 3 Fair Knee Strength Knee Manual Muscle Testing Right Flexion (S2) 4 Good Extension (L3) 4 Good Left Flexion (S2) 4 Good Extension (L3) 4- Good- Ankle/Foot Strength Ankle and Foot Manual Muscle Testing Right Dorsiflexion (L4) 4 Good Plantarflexion (S1) 4 Good Left Dorsiflexion (L4) 4 Good Plantarflexion (S1) 4 Good PT-OP-Q Treatments Start: 03/16/19 07:34 Freq: Status: Active Protocol: Document 04/18/19 09:50 SP (Rec: 04/18/19 10:35 SP [id number]) Therapeutic Exercises Supine Exercises pelvic realignment ex Supine Exercise Name add squeeze, pelvic lift, isometric HS Side bilateral Reps/Minutes 3 sec hold x5 each Comments see hand out in chart 1 Supine Exercise Name Hank stretch Reps/Minutes 30 x2 Prone Exercises QL stretch Prone Exercise Name child's pose side bend Reps/Minutes 30 x2 R and L Standing Exercises side step antirotation Resistance Tb #1 Reps/Minutes 2x5 side step R and L Comments cued upright posture with awareness of core activtation miracle curl Standing Exercise Name segmental trunk flexion Resistance 2# DB BUE Reps/Minutes 2x10 Comments back to wall, DB slide down legs or dangling front, slow pacing 1 Standing Exercise Name [place]/ runners stretch Side bilateral Equipment Used table Reps/Minutes 30 x2 Comments leg support on table hip ER PT-OP-T Assessment and Plan Start: 03/16/19 07:34 Freq: Status: Active Protocol: Document 04/18/19 09:50 SP (Rec: 04/18/19 10:35 SP [id number]) Physical Therapy Assessment Goals Two Impairment strength Short Term Goal (STG) Hillary will improve her LE strength to grossly 4/5 or better. STG Duration 4 weeks Skilled Nursing Goal (LTG) Hillary will be independent with a home and gym based exercise plan that she can do without flaring her MS, back pain, or neck pain. LTG Duration 8 weeks One Impairment pain Short Term Goal (STG) Hillary will sit upright in a chair for 10 minutes with 5/10 pain or less. STG Duration 4 weks Practice Lead Goal (LTG) Hillary will notice decreased frequency of her neck pain so that it is occuring on average one time per week. LTG Duration 8 weeks Assessment Summary Assessment Tx focused on LS stretching and self realignment exercises to decrease LS tightness and discomfort with report of slow pacing into/out of movement with positive feedback results LBP decreased to 5-6/10. Reveiwed core standing HEP, reported experienced a pain over R SI as gets close to 80- 90* trunk flexion during miracle curl, improvement post pigeon stretch to R glut. Pt stated the exercises and stretches have helped alot, pain decreased to 2-3/10 end of tx today. will try to be more consistant with HEP at home. Physical Therapy Plan Frequency and Duration Frequency of Treatment 2x/Week Duration of Treatment 8 weeks Plan of Care Start Date 03/16/19 Plan of Care End Date 05/11/19 Therapeutic Interventions Therapeutic Interventions Aquatic Therapy,Balance Training,Gait Training,Home Exercise Program,Manual Therapy,Neuromuscular Re- education,Therapeutic Activities,Therapeutic Exercises Modalities Cold Pack/Ice Massage,Electric Stimulation Next Visit Focus/Plan Next Visit Plan Assess add pelvic alignment added last tx. Trial possible ball roll hip at wall for self decompression/stretch L hip on own for comfort to compliment stretching support. Continue per PT POC recommendations: to assess cervical ROM and progress C- spine HEP as tolerated. Add: recombent bike warm up preferred next tx like gym, shuttle recovery, clamshells or lateral band walk, LS stretch: child's pose, cat/ camel, UE scap stability strengthening.
--- NOTE | 2019-04-23 10:35 | PT.OTN ---
Current Diagnoses Multiple sclerosis (04/23/19) Spondylosis without myelopathy or radiculopathy, lumbosacral region (04/23/19) Cervicalgia (04/23/19) Physical Therapy Treatment Note PT-OP-A Visit Information Start: 03/16/19 07:34 Freq: Status: Active Protocol: Document 04/23/19 09:51 SP (Rec: 04/23/19 10:47 SP [id number]) Out-Patient Physical Therapy Visit Information Visit Information Visit Type Treatment Note Visit Start Time 09:51 Visit Stop Time 10:35 Total Visit Minutes 44 Visit Number 8 Number of WELT MAKER Visits 4 PT-OP-B Current Condition Start: 03/16/19 07:34 Freq: Status: Active Protocol: Document 03/16/19 08:15 AMB (Rec: 03/16/19 09:39 AMB [email or web address]) Current Condition History of Current Condition Onset Date 1 year ago Current Complaints neck pain, back pain, deconditioning due to MS History of Current Condition Hillary was diagnosed with MS in 1998. She had a lumbar fusion in 2007. Recently she had a lumbar spine rhizotomy which helped her pain, but she is now noticing pain lower in her back that goes down her left leg that is constant. For about the last year she has had occipital neck pain which has radiated into her head on the right, it is intermittent averaging about once per day and sharp but brief. Hillary lives alone with an elderly dog and cat. She has two steps to enter without a rail, and then 12 steps with a rail to get to her bedroom. 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 She used to dance, and then worked out at the gym, but had a difficult time returning to regular activity since her lumbar fusion in 2007. She walks without assistive device, and denies any falls in the last 6 months. She did have a fall on stairs where she felt her ankle give way a year ago, and does notice increased fatigue by the end of the day and is more likley to trip over her feet at that time. She does report her neurologist has tested her and thinks she has neuropathy, but she does not notice any obvious numbness or tingling in her feet. She does have reduced vision, with practically no vision in the right eye, and reduced peripheral vision in the left. Treatment Goals Patient/Caregiver Goals Return to a gym workout, reduce pain, be able to sit without back pain Prior Functional Status Baseline Function- ADL's Modified Independent Baseline Function- Mobility Modified Independent Current Functional Impairments (Reported) Functional Limitations- ADL's Pt drives but only during the day in places she knows. Sitting is painful, rolling over in bed is painful, goes on slow walks with her dog but can't walk fast. Personal Factors Other Personal Factors That May Effect chronic pain, MS Therapy/Recovery PT-OP-C Subjective Start: 03/16/19 07:34 Freq: Status: Active Protocol: Document 04/23/19 09:51 SP (Rec: 04/23/19 10:47 SP [id number]) OP-PT Subjective Patient Comments Patient Comments Pt stated her LB is 5/10 sore and B knees 6-7/10 have been hurting this morning, R gets an occasional shooting pain superior inferiorly patella over top to tibia and L deep under patella. The added pelvis alignment exercises were helpful with LBP reduction learned last tx. PT-OP-D Balance Start: 03/16/19 07:34 Freq: Status: Active Protocol: Document 03/16/19 08:15 AMB (Rec: 03/16/19 11:16 AMB [email or web address]) Balance Tests Single Limb Standing Single Limb- Right 4 seconds Single Limb- Left 3 seconds Semi-Tandem Standing Semi-Tandem Standing Balance 30 seconds PT-OP-G Mobility & Gait Start: 03/16/19 07:34 Freq: Status: Active Protocol: Document 03/16/19 08:15 AMB (Rec: 03/16/19 11:16 AMB [email or web address]) OP Gait Assessment Comments Gait Comments Pt ambulates without assistive device without obvious foot drop but reports she walks better in the mornings. PT-OP-H Neuro Start: 03/16/19 07:34 Freq: Status: Active Protocol: Document 03/16/19 08:15 AMB (Rec: 03/16/19 11:16 AMB [email or web address]) Sensation Evaluation Comments Summary Comments Pt denies numbness tingling in feet, but does report intermittent difficulty with sensory testing PT-OP-J Posture/Palpation/Skin Start: 03/16/19 07:34 Freq: Status: Active Protocol: Document 03/16/19 08:15 AMB (Rec: 03/16/19 11:16 AMB [email or web address]) Palpation Assessment Location One Palpation Location tenderness at occiput Palpation Findings Soft Tissue Tightness,Muscle Guarding PT-OP-K Range of Motion Start: 03/16/19 07:34 Freq: Status: Active Protocol: Document 03/16/19 08:15 AMB (Rec: 03/16/19 11:16 AMB [email or web address]) Cervical Spine Range of Motion Cervical Spine Active Degrees Testing Position Sitting Flexion 55 Extension 35 Rotation Left 55 Rotation Right 55 Lateral Flexion Left 40 Lateral Flexion Right 40 PT-OP-M Strength Start: 03/16/19 07:34 Freq: Status: Active Protocol: Document 03/16/19 08:15 AMB (Rec: 03/16/19 13:02 AMB [email or web address]) Hip Strength Hip Manual Muscle Testing Right Flexion (L2) 3+ Fair+ Extension (S1) 3 Fair Left Flexion (L2) 3+ Fair+ Extension (S1) 3 Fair Knee Strength Knee Manual Muscle Testing Right Flexion (S2) 4 Good Extension (L3) 4 Good Left Flexion (S2) 4 Good Extension (L3) 4- Good- Ankle/Foot Strength Ankle and Foot Manual Muscle Testing Right Dorsiflexion (L4) 4 Good Plantarflexion (S1) 4 Good Left Dorsiflexion (L4) 4 Good Plantarflexion (S1) 4 Good PT-OP-Q Treatments Start: 03/16/19 07:34 Freq: Status: Active Protocol: Document 04/23/19 09:51 SP (Rec: 04/23/19 10:47 SP [id number]) Therapeutic Exercises Supine Exercises pelvic realignment ex Supine Exercise Name add squeeze, pelvic lift, isometric HS Side bilateral Reps/Minutes 3 sec hold x5 each Comments see hand out in chart 3 Supine Exercise Name hooklying SLR Side bilateral Resistance AROM Reps/Minutes x5 Comments PPT slow pacing 1 Supine Exercise Name Hank stretch Reps/Minutes 30 x2 Sitting Exercises 1 Sitting Exercise Name piriformis stretch Reps/Minutes 30 x2 Comments cradle R knee toward L shld Standing Exercises miracle curl Standing Exercise Name segmental trunk flexion Resistance 5# DB BUE Reps/Minutes x10 (couple sets through day HEP) Comments back to wall, DB slide down legs or dangling front, slow pacing Manual Therapy Treatment Soft Tissue Mobilization PF/glut ball roll Body Location L glut/PF ball roll at wall Mobilization Type Rolling,Sustained Pressure Intensity/Depth Moderate Body Position Standing 1 Body Location rolling pin quad, ITB Mobilization Type Rolling Intensity/Depth Moderate Body Position Supine Joint Mobilizations patella mobe Joint sup/inf/med/lat Grade II Body Position Supine Comments R >L PT-OP-T Assessment and Plan Start: 03/16/19 07:34 Freq: Status: Active Protocol: Document 04/23/19 09:51 SP (Rec: 04/23/19 10:47 SP [id number]) Physical Therapy Assessment Goals Two Impairment strength Short Term Goal (STG) Hillary will improve her LE strength to grossly 4/5 or better. STG Duration 4 weeks Usp Goal (LTG) Hillary will be independent with a home and gym based exercise plan that she can do without flaring her MS, back pain, or neck pain. LTG Duration 8 weeks One Impairment pain Short Term Goal (STG) Hillary will sit upright in a chair for 10 minutes with 5/10 pain or less. STG Duration 4 weks Usp Goal (LTG) Hillary will notice decreased frequency of her neck pain so that it is occuring on average one time per week. LTG Duration 8 weeks Assessment Summary Assessment Beginning of tx provided manual and self rolling to quads, gluts and stretching to assist knee and LB discomfort with positive results. Reviewed HEP core standing, cued for neutral spine/core activation as needed with allowable weight increase to 3 # DB use today but only has 5# DB at home with trial during tx and noted to much LB recruitment discomoft. Pt is making gains with LB stability , stated feels good after tx reduction in pain 6-7/10 to 3- 4/10 in LB and B knees. Did not get to last tx suggested secondary to knee pain and no cervical HEP has been given as suggested by PT secondary to no reports of neck pain while working with patient. Physical Therapy Plan Frequency and Duration Frequency of Treatment 2x/Week Duration of Treatment 8 weeks Plan of Care Start Date 03/16/19 Plan of Care End Date 05/11/19 Therapeutic Interventions Therapeutic Interventions Aquatic Therapy,Balance Training,Gait Training,Home Exercise Program,Manual Therapy,Neuromuscular Re- education,Therapeutic Activities,Therapeutic Exercises Modalities Cold Pack/Ice Massage,Electric Stimulation Next Visit Focus/Plan Next Visit Plan PT sees patient next visit. Assess response to add rolling pin to quad, ITB and hank stretch to assist knee pain. Continue per PT POC recommendations: to assess cervical ROM and progress C-spine HEP as tolerated. Add: recombent bike warm up preferred next tx like gym, shuttle recovery, clamshells or lateral band walk, LS stretch: child's pose , cat/camel, UE scap stability strengthening.
--- NOTE | 2019-04-26 10:22 | PT.OTN ---
Current Diagnoses Multiple sclerosis (04/26/19) Spondylosis without myelopathy or radiculopathy, lumbosacral region (04/26/19) Cervicalgia (04/26/19) Physical Therapy Treatment Note PT-OP-A Visit Information Start: 03/16/19 07:34 Freq: Status: Active Protocol: Document 04/26/19 08:15 AMB (Rec: 04/26/19 09:01 AMB [id number]) Out-Patient Physical Therapy Visit Information Visit Information Visit Type Treatment Note Visit Start Time 08:16 Visit Stop Time 09:00 Total Visit Minutes 44 Visit Number 9 Number of DATA DEVELOPER Visits 0 PT-OP-B Current Condition Start: 03/16/19 07:34 Freq: Status: Active Protocol: Document 03/16/19 08:15 AMB (Rec: 03/16/19 09:39 AMB [email or web address]) Current Condition History of Current Condition Onset Date 1 year ago Current Complaints neck pain, back pain, deconditioning due to MS History of Current Condition Hillary was diagnosed with MS in 1998. She had a lumbar fusion in 2007. Recently she had a lumbar spine rhizotomy which helped her pain, but she is now noticing pain lower in her back that goes down her left leg that is constant. For about the last year she has had occipital neck pain which has radiated into her head on the right, it is intermittent averaging about once per day and sharp but brief. Hillary lives alone with an elderly dog and cat. She has two steps to enter without a rail, and then 12 steps with a rail to get to her bedroom. 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 She used to dance, and then worked out at the gym, but had a difficult time returning to regular activity since her lumbar fusion in 2007. She walks without assistive device, and denies any falls in the last 6 months. She did have a fall on stairs where she felt her ankle give way a year ago, and does notice increased fatigue by the end of the day and is more likley to trip over her feet at that time. She does report her neurologist has tested her and thinks she has neuropathy, but she does not notice any obvious numbness or tingling in her feet. She does have reduced vision, with practically no vision in the right eye, and reduced peripheral vision in the left. Treatment Goals Patient/Caregiver Goals Return to a gym workout, reduce pain, be able to sit without back pain Prior Functional Status Baseline Function- ADL's Modified Independent Baseline Function- Mobility Modified Independent Current Functional Impairments (Reported) Functional Limitations- ADL's Pt drives but only during the day in places she knows. Sitting is painful, rolling over in bed is painful, goes on slow walks with her dog but can't walk fast. Personal Factors Other Personal Factors That May Effect chronic pain, MS Therapy/Recovery PT-OP-C Subjective Start: 03/16/19 07:34 Freq: Status: Active Protocol: Document 04/26/19 08:15 AMB (Rec: 04/26/19 09:01 AMB [id number]) OP-PT Subjective Patient Comments Patient Comments Pt states that knee pain in the L is bothering her on stairs and with sitting on the ground. Feels like she should be good for knowing what to do at a gym. PT-OP-D Balance Start: 03/16/19 07:34 Freq: Status: Active Protocol: Document 03/16/19 08:15 AMB (Rec: 03/16/19 11:16 AMB [email or web address]) Balance Tests Single Limb Standing Single Limb- Right 4 seconds Single Limb- Left 3 seconds Semi-Tandem Standing Semi-Tandem Standing Balance 30 seconds PT-OP-G Mobility & Gait Start: 03/16/19 07:34 Freq: Status: Active Protocol: Document 03/16/19 08:15 AMB (Rec: 03/16/19 11:16 AMB [email or web address]) OP Gait Assessment Comments Gait Comments Pt ambulates without assistive device without obvious foot drop but reports she walks better in the mornings. PT-OP-H Neuro Start: 03/16/19 07:34 Freq: Status: Active Protocol: Document 03/16/19 08:15 AMB (Rec: 03/16/19 11:16 AMB [email or web address]) Sensation Evaluation Comments Summary Comments Pt denies numbness tingling in feet, but does report intermittent difficulty with sensory testing PT-OP-J Posture/Palpation/Skin Start: 03/16/19 07:34 Freq: Status: Active Protocol: Document 03/16/19 08:15 AMB (Rec: 03/16/19 11:16 AMB [email or web address]) Palpation Assessment Location One Palpation Location tenderness at occiput Palpation Findings Soft Tissue Tightness,Muscle Guarding PT-OP-K Range of Motion Start: 03/16/19 07:34 Freq: Status: Active Protocol: Document 03/16/19 08:15 AMB (Rec: 03/16/19 11:16 AMB [email or web address]) Cervical Spine Range of Motion Cervical Spine Active Degrees Testing Position Sitting Flexion 55 Extension 35 Rotation Left 55 Rotation Right 55 Lateral Flexion Left 40 Lateral Flexion Right 40 PT-OP-M Strength Start: 03/16/19 07:34 Freq: Status: Active Protocol: Document 03/16/19 08:15 AMB (Rec: 03/16/19 13:02 AMB [email or web address]) Hip Strength Hip Manual Muscle Testing Right Flexion (L2) 3+ Fair+ Extension (S1) 3 Fair Left Flexion (L2) 3+ Fair+ Extension (S1) 3 Fair Knee Strength Knee Manual Muscle Testing Right Flexion (S2) 4 Good Extension (L3) 4 Good Left Flexion (S2) 4 Good Extension (L3) 4- Good- Ankle/Foot Strength Ankle and Foot Manual Muscle Testing Right Dorsiflexion (L4) 4 Good Plantarflexion (S1) 4 Good Left Dorsiflexion (L4) 4 Good Plantarflexion (S1) 4 Good PT-OP-Q Treatments Start: 03/16/19 07:34 Freq: Status: Active Protocol: Document 04/26/19 08:15 AMB (Rec: 04/26/19 10:20 AMB [email or web address]) Cardio Equipment Recumbent Bicycle Duration (Minutes) 5 Resistance 7 Therapeutic Exercises Supine Exercises 4 Supine Exercise Name IT band stretch Reps/Minutes 30x2 3 Supine Exercise Name hooklying SLR Side bilateral Resistance AROM Reps/Minutes x5 Comments PPT slow pacing 1 Supine Exercise Name Hank stretch Reps/Minutes 30 x2 Standing Exercises 2 Standing Exercise Name hip flexor stretch in standing Reps/Minutes 30x2 Comments at stair and at table Gait Training Gait Activity 1 Description stairs Device Used 1 rail Comments step to gait pattern for pain relief Manual Therapy Treatment Soft Tissue Mobilization 1 Body Location rolling pin quad, ITB Mobilization Type Rolling Intensity/Depth Moderate Body Position Supine Taping 1 Body Location L knee Type of Tape Kinesio Tape Comments kinesiotape 3 Ys for patellar alignment PT-OP-T Assessment and Plan Start: 03/16/19 07:34 Freq: Status: Active Protocol: Document 04/26/19 08:15 AMB (Rec: 04/26/19 09:01 [email or web address] [id number]) Physical Therapy Assessment Goals Two Impairment strength Short Term Goal (STG) Hillary will improve her LE strength to grossly 4/5 or better. STG Duration 4 weeks Mcc Goal (LTG) Hillary will be independent with a home and gym based exercise plan that she can do without flaring her MS, back pain, or neck pain. LTG Duration 8 weeks One Impairment pain Short Term Goal (STG) Hillary will sit upright in a chair for 10 minutes with 5/10 pain or less. STG Duration 4 weks Government Documents Librarian Goal (LTG) Hillary will notice decreased frequency of her neck pain so that it is occuring on average one time per week. LTG Duration 8 weeks Assessment Summary Assessment Hillary has been feeling better with her back and her neck, but stairs are continuing to irritate the knee. Pt demonstrated ability to ascend with R, and descend with L on stairs, but encouraged her to do this when knee is hurting her, not forever. Physical Therapy Plan Next Visit Focus/Plan Next Note Type Treatment Note Next Visit Plan Assess tolerance to taping, continue core/ LE stability training and assess readiness to return to gym.
--- NOTE | 2019-05-02 07:35 | PT-OP ANOTE ---
Pt called this morning and cancelled appt secondary to being sick. CONTROL PANEL BUILDER left a message next and last appt scheduled at this time for 05/04/19. PT to assess and add more appts at next visit, POC end date 05/11/19.
--- NOTE | 2019-06-01 13:34 | PT.OTN ---
Current Diagnoses Multiple sclerosis (06/01/19) Spondylosis without myelopathy or radiculopathy, lumbosacral region (06/01/19) Cervicalgia (06/01/19) Physical Therapy Treatment Note PT-OP-A Visit Information Start: 03/16/19 07:34 Freq: Status: Active Protocol: Document 06/01/19 09:45 AMB (Rec: 06/03/19 13:12 AMB [email or web address]) Out-Patient Physical Therapy Visit Information Visit Information Visit Type Progress Note Visit Start Time 09:45 Visit Stop Time 10:30 Total Visit Minutes 45 Visit Number 10 Number of LATHE SETUP OPERATOR Visits 0 PT-OP-B Current Condition Start: 03/16/19 07:34 Freq: Status: Active Protocol: Document 03/16/19 08:15 AMB (Rec: 03/16/19 09:39 AMB [email or web address]) Current Condition History of Current Condition Onset Date 1 year ago Current Complaints neck pain, back pain, deconditioning due to MS History of Current Condition Hillary was diagnosed with MS in 1998. She had a lumbar fusion in 2007. Recently she had a lumbar spine rhizotomy which helped her pain, but she is now noticing pain lower in her back that goes down her left leg that is constant. For about the last year she has had occipital neck pain which has radiated into her head on the right, it is intermittent averaging about once per day and sharp but brief. Hillary lives alone with an elderly dog and cat. She has two steps to enter without a rail, and then 12 steps with a rail to get to her bedroom. 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 She used to dance, and then worked out at the gym, but had a difficult time returning to regular activity since her lumbar fusion in 2007. She walks without assistive device, and denies any falls in the last 6 months. She did have a fall on stairs where she felt her ankle give way a year ago, and does notice increased fatigue by the end of the day and is more likley to trip over her feet at that time. She does report her neurologist has tested her and thinks she has neuropathy, but she does not notice any obvious numbness or tingling in her feet. She does have reduced vision, with practically no vision in the right eye, and reduced peripheral vision in the left. Treatment Goals Patient/Caregiver Goals Return to a gym workout, reduce pain, be able to sit without back pain Prior Functional Status Baseline Function- ADL's Modified Independent Baseline Function- Mobility Modified Independent Current Functional Impairments (Reported) Functional Limitations- ADL's Pt drives but only during the day in places she knows. Sitting is painful, rolling over in bed is painful, goes on slow walks with her dog but can't walk fast. Personal Factors Other Personal Factors That May Effect chronic pain, MS Therapy/Recovery PT-OP-C Subjective Start: 03/16/19 07:34 Freq: Status: Active Protocol: Document 06/01/19 09:45 AMB (Rec: 06/03/19 13:12 AMB [email or web address]) OP-PT Subjective Patient Comments Patient Comments Pt states her knee pain has resolved well. She was sick with pneumonia for a few weeks , and then has been dealing with insurance issues since she changed insurances so that is why there was a month long break in her PT. She has not yet been able to return to the gym. Her neck pain and back pain continue, about the same. PT-OP-D Balance Start: 03/16/19 07:34 Freq: Status: Active Protocol: Document 03/16/19 08:15 AMB (Rec: 03/16/19 11:16 AMB [email or web address]) Balance Tests Single Limb Standing Single Limb- Right 4 seconds Single Limb- Left 3 seconds Semi-Tandem Standing Semi-Tandem Standing Balance 30 seconds PT-OP-G Mobility & Gait Start: 03/16/19 07:34 Freq: Status: Active Protocol: Document 03/16/19 08:15 AMB (Rec: 03/16/19 11:16 AMB [email or web address]) OP Gait Assessment Comments Gait Comments Pt ambulates without assistive device without obvious foot drop but reports she walks better in the mornings. PT-OP-H Neuro Start: 03/16/19 07:34 Freq: Status: Active Protocol: Document 03/16/19 08:15 AMB (Rec: 03/16/19 11:16 AMB [email or web address]) Sensation Evaluation Comments Summary Comments Pt denies numbness tingling in feet, but does report intermittent difficulty with sensory testing PT-OP-J Posture/Palpation/Skin Start: 03/16/19 07:34 Freq: Status: Active Protocol: Document 03/16/19 08:15 AMB (Rec: 03/16/19 11:16 AMB [email or web address]) Palpation Assessment Location One Palpation Location tenderness at occiput Palpation Findings Soft Tissue Tightness,Muscle Guarding PT-OP-K Range of Motion Start: 03/16/19 07:34 Freq: Status: Active Protocol: Document 03/16/19 08:15 AMB (Rec: 03/16/19 11:16 AMB [email or web address]) Cervical Spine Range of Motion Cervical Spine Active Degrees Testing Position Sitting Flexion 55 Extension 35 Rotation Left 55 Rotation Right 55 Lateral Flexion Left 40 Lateral Flexion Right 40 PT-OP-M Strength Start: 03/16/19 07:34 Freq: Status: Active Protocol: Document 03/16/19 08:15 AMB (Rec: 03/16/19 13:02 AMB [email or web address]) Hip Strength Hip Manual Muscle Testing Right Flexion (L2) 3+ Fair+ Extension (S1) 3 Fair Left Flexion (L2) 3+ Fair+ Extension (S1) 3 Fair Knee Strength Knee Manual Muscle Testing Right Flexion (S2) 4 Good Extension (L3) 4 Good Left Flexion (S2) 4 Good Extension (L3) 4- Good- Ankle/Foot Strength Ankle and Foot Manual Muscle Testing Right Dorsiflexion (L4) 4 Good Plantarflexion (S1) 4 Good Left Dorsiflexion (L4) 4 Good Plantarflexion (S1) 4 Good PT-OP-Q Treatments Start: 03/16/19 07:34 Freq: Status: Active Protocol: Document 06/01/19 09:45 AMB (Rec: 06/03/19 13:12 AMB [email or web address]) Gym Equipment Therapeutic Ball 1 Exercise Details 65cm Ball Size/Color marching, LAQ Body Position Sitting Reps/Duration 10 min Comments pt noted challenge with engaging TA and balance is also a challenge for her Therapeutic Exercises Supine Exercises 3 Supine Exercise Name hooklying SLR Side bilateral Resistance AROM Reps/Minutes x5 Comments PPT slow pacing 2 Supine Exercise Name piriformis stretch vs reclined cow fase pose Reps/Minutes 30x2 Comments written HEP given- option to avoid pigeon pose in standing with leg on tabl Self-Care/Home Management Treatment Education Patient Education Home Exercise Program Other Education Reviewed HEP since it has been over a month since she has been in, and she has been sick . Changed out a few exercises as above. PT-OP-T Assessment and Plan Start: 03/16/19 07:34 Freq: Status: Active Protocol: Document 06/01/19 09:45 AMB (Rec: 06/01/19 10:49 AMB [id number]) Physical Therapy Assessment Goals Two Impairment strength Short Term Goal (STG) Hillary will improve her LE strength to grossly 4/5 or better. 06/01: PROGRESS MADE, but recent illness has increased deconditioning again . STG Duration 4 weeks Negotiator Sales Goal (LTG) Hillary will be independent with a home and gym based exercise plan that she can do without flaring her MS, back pain, or neck pain. 06/01 PROGRESS MADE LTG Duration 8 weeks One Impairment pain Short Term Goal (STG) Hillary will sit upright in a chair for 10 minutes with 5/10 pain or less. 06/01 NOT YET MET STG Duration 4 weks Negotiator Sales Goal (LTG) Hillary will notice decreased frequency of her neck pain so that it is occuring on average one time per week. 06/01: NOT YET MET LTG Duration 8 weeks Assessment Summary Assessment Hillary reports a change in function over the last month. She was not able to move around very much for at least a week while dealing with a respiratory infection. During that time her knee pain has improved. Previously, her neck had not really been bothering her, but now it has returned, intermittently. The back still limits her with standing, extended sitting, and vacuuming, and she will benefit from continued PT, since she has had 10 visits so far, but needed to take a break due to her illness and then a change in insurance. Physical Therapy Plan Frequency and Duration Frequency of Treatment 2x/Week Duration of Treatment 8 weeks Plan of Care Start Date 06/01/19 Plan of Care End Date 08/10/19 Therapeutic Interventions Therapeutic Interventions Aquatic Therapy,Balance Training,Home Exercise Program ,Manual Therapy,Neuromuscular Re-education,Therapeutic Activities,Therapeutic Exercises Modalities Cold Pack/Ice Massage,Electric Stimulation Next Visit Focus/Plan Next Note Type Treatment Note Next Visit Plan Reassess HEP with regards to biggest issues of back and neck pain at this point.
--- NOTE | 2019-06-01 13:35 | PT.OPPOC ---
Physical, Occupational & Speech Therapy At [facility] Current Diagnoses Multiple sclerosis (06/01/19) Spondylosis without myelopathy or radiculopathy, lumbosacral region (06/01/19) Cervicalgia (06/01/19) Visit Care Team Role Provider Type Hernán Wallace MD Attending Provider Physician Primary Care Provider Specialty: Internal Medicine Address: [address] [place] [address], [id number] Email: [email or web address] Plan Of Care PT-OP-T Assessment and Plan Start: 03/16/19 07:34 Freq: Status: Active Protocol: Document 06/01/19 09:45 AMB (Rec: 06/01/19 10:49 AMB [id number]) Physical Therapy Assessment Goals Two Impairment strength Short Term Goal (STG) Hillary will improve her LE strength to grossly 4/5 or better. 06/01: PROGRESS MADE, but recent illness has increased deconditioning again . STG Duration 4 weeks Geospatial Program Management Officer Goal (LTG) Hillary will be independent with a home and gym based exercise plan that she can do without flaring her MS, back pain, or neck pain. 06/01 PROGRESS MADE LTG Duration 8 weeks One Impairment pain Short Term Goal (STG) Hillary will sit upright in a chair for 10 minutes with 5/10 pain or less. 06/01 NOT YET MET STG Duration 4 weks Geospatial Program Management Officer Goal (LTG) Hillary will notice decreased frequency of her neck pain so that it is occuring on average one time per week. 06/01: NOT YET MET LTG Duration 8 weeks Assessment Summary Assessment Hillary reports a change in function over the last month. She was not able to move around very much for at least a week while dealing with a respiratory infection. During that time her knee pain has improved. Previously, her neck had not really been bothering her, but now it has returned, intermittently. The back still limits her with standing, extended sitting, and vacuuming, and she will benefit from continued PT, since she has had 10 visits so far, but needed to take a break due to her illness and then a change in insurance. Physical Therapy Plan Frequency and Duration Frequency of Treatment 2x/Week Duration of Treatment 8 weeks Plan of Care Start Date 06/01/19 Plan of Care End Date 08/10/19 Therapeutic Interventions Therapeutic Interventions Aquatic Therapy,Balance Training,Home Exercise Program ,Manual Therapy,Neuromuscular Re-education,Therapeutic Activities,Therapeutic Exercises Modalities Cold Pack/Ice Massage,Electric Stimulation Next Visit Focus/Plan Next Note Type Treatment Note Next Visit Plan Reassess HEP with regards to biggest issues of back and neck pain at this point. Plan of Care Dates Plan of Care Start Date 06/01/19 Plan of Care End Date 08/10/19 Electronically Signed by: Leonarda Presley, PT 06/03/19 [id number] Please Sign and Return: I have reviewed this Plan of Care and certify that the skilled therapy services above are required to meet the patient?s needs. Physician Signature Date Printed Name and Credentials Clinical Instructor Signature Printed Name and Credentials
--- NOTE | 2019-06-04 13:04 | PT.OTN ---
Current Diagnoses Multiple sclerosis (06/04/19) Spondylosis without myelopathy or radiculopathy, lumbosacral region (06/04/19) Cervicalgia (06/04/19) Physical Therapy Treatment Note PT-OP-A Visit Information Start: 03/16/19 07:34 Freq: Status: Active Protocol: Document 06/04/19 12:16 SP (Rec: 06/04/19 14:26 SP [id number]) Out-Patient Physical Therapy Visit Information Visit Information Visit Type Treatment Note Visit Start Time 12:16 Visit Stop Time 13:04 Total Visit Minutes 48 Visit Number 11 Number of BEAM RACKER Visits 1 PT-OP-B Current Condition Start: 03/16/19 07:34 Freq: Status: Active Protocol: Document 03/16/19 08:15 AMB (Rec: 03/16/19 09:39 AMB [email or web address]) Current Condition History of Current Condition Onset Date 1 year ago Current Complaints neck pain, back pain, deconditioning due to MS History of Current Condition Hillary was diagnosed with MS in 1998. She had a lumbar fusion in 2007. Recently she had a lumbar spine rhizotomy which helped her pain, but she is now noticing pain lower in her back that goes down her left leg that is constant. For about the last year she has had occipital neck pain which has radiated into her head on the right, it is intermittent averaging about once per day and sharp but brief. Hillary lives alone with an elderly dog and cat. She has two steps to enter without a rail, and then 12 steps with a rail to get to her bedroom. 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 She used to dance, and then worked out at the gym, but had a difficult time returning to regular activity since her lumbar fusion in 2007. She walks without assistive device, and denies any falls in the last 6 months. She did have a fall on stairs where she felt her ankle give way a year ago, and does notice increased fatigue by the end of the day and is more likley to trip over her feet at that time. She does report her neurologist has tested her and thinks she has neuropathy, but she does not notice any obvious numbness or tingling in her feet. She does have reduced vision, with practically no vision in the right eye, and reduced peripheral vision in the left. Treatment Goals Patient/Caregiver Goals Return to a gym workout, reduce pain, be able to sit without back pain Prior Functional Status Baseline Function- ADL's Modified Independent Baseline Function- Mobility Modified Independent Current Functional Impairments (Reported) Functional Limitations- ADL's Pt drives but only during the day in places she knows. Sitting is painful, rolling over in bed is painful, goes on slow walks with her dog but can't walk fast. Personal Factors Other Personal Factors That May Effect chronic pain, MS Therapy/Recovery PT-OP-C Subjective Start: 03/16/19 07:34 Freq: Status: Active Protocol: Document 06/04/19 12:16 SP (Rec: 06/04/19 14:26 SP [id number]) OP-PT Subjective Patient Comments Patient Comments Pt stated no new concerns or changes since last tx, compliant with HEP but wants to review figure 4 stretch for form. PT-OP-D Balance Start: 03/16/19 07:34 Freq: Status: Active Protocol: Document 03/16/19 08:15 AMB (Rec: 03/16/19 11:16 AMB [email or web address]) Balance Tests Single Limb Standing Single Limb- Right 4 seconds Single Limb- Left 3 seconds Semi-Tandem Standing Semi-Tandem Standing Balance 30 seconds PT-OP-G Mobility & Gait Start: 03/16/19 07:34 Freq: Status: Active Protocol: Document 03/16/19 08:15 AMB (Rec: 03/16/19 11:16 AMB [email or web address]) OP Gait Assessment Comments Gait Comments Pt ambulates without assistive device without obvious foot drop but reports she walks better in the mornings. PT-OP-H Neuro Start: 03/16/19 07:34 Freq: Status: Active Protocol: Document 03/16/19 08:15 AMB (Rec: 03/16/19 11:16 AMB [email or web address]) Sensation Evaluation Comments Summary Comments Pt denies numbness tingling in feet, but does report intermittent difficulty with sensory testing PT-OP-J Posture/Palpation/Skin Start: 03/16/19 07:34 Freq: Status: Active Protocol: Document 03/16/19 08:15 AMB (Rec: 03/16/19 11:16 AMB [email or web address]) Palpation Assessment Location One Palpation Location tenderness at occiput Palpation Findings Soft Tissue Tightness,Muscle Guarding PT-OP-K Range of Motion Start: 03/16/19 07:34 Freq: Status: Active Protocol: Document 03/16/19 08:15 AMB (Rec: 03/16/19 11:16 AMB [email or web address]) Cervical Spine Range of Motion Cervical Spine Active Degrees Testing Position Sitting Flexion 55 Extension 35 Rotation Left 55 Rotation Right 55 Lateral Flexion Left 40 Lateral Flexion Right 40 PT-OP-M Strength Start: 03/16/19 07:34 Freq: Status: Active Protocol: Document 03/16/19 08:15 AMB (Rec: 03/16/19 13:02 AMB [email or web address]) Hip Strength Hip Manual Muscle Testing Right Flexion (L2) 3+ Fair+ Extension (S1) 3 Fair Left Flexion (L2) 3+ Fair+ Extension (S1) 3 Fair Knee Strength Knee Manual Muscle Testing Right Flexion (S2) 4 Good Extension (L3) 4 Good Left Flexion (S2) 4 Good Extension (L3) 4- Good- Ankle/Foot Strength Ankle and Foot Manual Muscle Testing Right Dorsiflexion (L4) 4 Good Plantarflexion (S1) 4 Good Left Dorsiflexion (L4) 4 Good Plantarflexion (S1) 4 Good PT-OP-Q Treatments Start: 03/16/19 07:34 Freq: Status: Active Protocol: Document 06/04/19 12:16 SP (Rec: 06/04/19 14:26 SP [id number]) Gym Equipment Therapeutic Ball 1 Exercise Details 65cm, chair at home progress to cushion Ball Size/Color marching, LAQ Body Position Sitting Reps/Duration 5 min Comments pt noted challenge with engaging TA and balance is also a challenge for her, trialed chair and cushion for home HEP Therapeutic Exercises Supine Exercises 2 Supine Exercise Name piriformis stretch vs reclined cow fase pose Reps/Minutes 30x2 Comments written HEP given- option to avoid pigeon pose in standing with leg on tabl Prone Exercises brird dog s Resistance AROM Reps/Minutes 2x5 Comments cued level pelvis QL stretch Prone Exercise Name child's pose with side bend Side bilateral Reps/Minutes 30 x2 Comments My favorite Standing Exercises LS stretch Standing Exercise Name QL stretch Equipment Used rail Reps/Minutes 30 x2 Comments Cued for proper form core march Standing Exercise Name SLS march pull down Resistance TB #1 Reps/Minutes 5 rep s x2 Comments cued PPT, alternate LE with slow pacing miracle curl Standing Exercise Name segmental trunk flexion Resistance 5# x4, 7# x10 DB BUE Reps/Minutes x10 (couple sets through day HEP) Comments back to wall, DB slide down legs or dangling front, slow pacing PT-OP-T Assessment and Plan Start: 03/16/19 07:34 Freq: Status: Active Protocol: Document 06/04/19 12:16 SP (Rec: 06/04/19 14:26 SP [id number]) Physical Therapy Assessment Goals Two Impairment strength Short Term Goal (STG) Hillary will improve her LE strength to grossly 4/5 or better. 06/01: PROGRESS MADE, but recent illness has increased deconditioning again . STG Duration 4 weeks Pressure Control Supervisor Goal (LTG) Hillary will be independent with a home and gym based exercise plan that she can do without flaring her MS, back pain, or neck pain. 06/01 PROGRESS MADE LTG Duration 8 weeks One Impairment pain Short Term Goal (STG) Hillary will sit upright in a chair for 10 minutes with 5/10 pain or less. 06/01 NOT YET MET STG Duration 4 weks Pressure Control Supervisor Goal (LTG) Hillary will notice decreased frequency of her neck pain so that it is occuring on average one time per week. 06/01: NOT YET MET LTG Duration 8 weeks Assessment Summary Assessment Pt tolerated tx well. Tx focused on proper form with core stabillzation, challenged with seated core march needing contact for support, trialed seated on chair with good stability but patient stated still challenging but can perform without hanging on and LB not hurting as much. BEAM RACKER increased challenge seated on cushion with fair stability and no increased pain, add to HEP at home. Introduced bird dog with cuing required for level pelvis and reaching not lift LE/UE with slow movement improvement demonstrated. Pt stated felt good end of tx today, no pain. Physical Therapy Plan Frequency and Duration Frequency of Treatment 2x/Week Duration of Treatment 8 weeks Plan of Care Start Date 06/01/19 Plan of Care End Date 08/10/19 Therapeutic Interventions Therapeutic Interventions Aquatic Therapy,Balance Training,Home Exercise Program ,Manual Therapy,Neuromuscular Re-education,Therapeutic Activities,Therapeutic Exercises Modalities Cold Pack/Ice Massage,Electric Stimulation Next Visit Focus/Plan Next Note Type Treatment Note Next Visit Plan Reassess HEP with regards to biggest issues of back and neck pain at this point. Continue core/ LE stability training and assess readiness to return to gym.
--- NOTE | 2019-06-11 09:45 | PT.OTN ---
Current Diagnoses Multiple sclerosis (06/11/19) Spondylosis without myelopathy or radiculopathy, lumbosacral region (06/11/19) Cervicalgia (06/11/19) Physical Therapy Treatment Note PT-OP-A Visit Information Start: 03/16/19 07:34 Freq: Status: Active Protocol: Document 06/11/19 09:06 SP (Rec: 06/11/19 11:39 SP [id number]) Out-Patient Physical Therapy Visit Information Visit Information Visit Type Treatment Note Visit Start Time 09:06 Visit Stop Time 09:45 Total Visit Minutes 39 Visit Number 12 Number of ORCHESTRA CONDUCTOR Visits 2 PT-OP-B Current Condition Start: 03/16/19 07:34 Freq: Status: Active Protocol: Document 03/16/19 08:15 AMB (Rec: 03/16/19 09:39 AMB [email or web address]) Current Condition History of Current Condition Onset Date 1 year ago Current Complaints neck pain, back pain, deconditioning due to MS History of Current Condition Hillary was diagnosed with MS in 1998. She had a lumbar fusion in 2007. Recently she had a lumbar spine rhizotomy which helped her pain, but she is now noticing pain lower in her back that goes down her left leg that is constant. For about the last year she has had occipital neck pain which has radiated into her head on the right, it is intermittent averaging about once per day and sharp but brief. Hillary lives alone with an elderly dog and cat. She has two steps to enter without a rail, and then 12 steps with a rail to get to her bedroom. 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 She used to dance, and then worked out at the gym, but had a difficult time returning to regular activity since her lumbar fusion in 2007. She walks without assistive device, and denies any falls in the last 6 months. She did have a fall on stairs where she felt her ankle give way a year ago, and does notice increased fatigue by the end of the day and is more likley to trip over her feet at that time. She does report her neurologist has tested her and thinks she has neuropathy, but she does not notice any obvious numbness or tingling in her feet. She does have reduced vision, with practically no vision in the right eye, and reduced peripheral vision in the left. Treatment Goals Patient/Caregiver Goals Return to a gym workout, reduce pain, be able to sit without back pain Prior Functional Status Baseline Function- ADL's Modified Independent Baseline Function- Mobility Modified Independent Current Functional Impairments (Reported) Functional Limitations- ADL's Pt drives but only during the day in places she knows. Sitting is painful, rolling over in bed is painful, goes on slow walks with her dog but can't walk fast. Personal Factors Other Personal Factors That May Effect chronic pain, MS Therapy/Recovery PT-OP-C Subjective Start: 03/16/19 07:34 Freq: Status: Active Protocol: Document 06/11/19 09:06 SP (Rec: 06/11/19 11:39 SP [id number]) OP-PT Subjective Patient Comments Patient Comments Pt reported LBP increased over the past week due to shoveling snow but today is 7/ 10 twangy/twinges usually gets with trunk rotation sititng up or seated turning PT-OP-D Balance Start: 03/16/19 07:34 Freq: Status: Active Protocol: Document 03/16/19 08:15 AMB (Rec: 03/16/19 11:16 AMB [email or web address]) Balance Tests Single Limb Standing Single Limb- Right 4 seconds Single Limb- Left 3 seconds Semi-Tandem Standing Semi-Tandem Standing Balance 30 seconds PT-OP-G Mobility & Gait Start: 03/16/19 07:34 Freq: Status: Active Protocol: Document 03/16/19 08:15 AMB (Rec: 03/16/19 11:16 AMB [email or web address]) OP Gait Assessment Comments Gait Comments Pt ambulates without assistive device without obvious foot drop but reports she walks better in the mornings. PT-OP-H Neuro Start: 03/16/19 07:34 Freq: Status: Active Protocol: Document 03/16/19 08:15 AMB (Rec: 03/16/19 11:16 AMB [email or web address]) Sensation Evaluation Comments Summary Comments Pt denies numbness tingling in feet, but does report intermittent difficulty with sensory testing PT-OP-J Posture/Palpation/Skin Start: 03/16/19 07:34 Freq: Status: Active Protocol: Document 03/16/19 08:15 AMB (Rec: 03/16/19 11:16 AMB [email or web address]) Palpation Assessment Location One Palpation Location tenderness at occiput Palpation Findings Soft Tissue Tightness,Muscle Guarding PT-OP-K Range of Motion Start: 03/16/19 07:34 Freq: Status: Active Protocol: Document 03/16/19 08:15 AMB (Rec: 03/16/19 11:16 AMB [email or web address]) Cervical Spine Range of Motion Cervical Spine Active Degrees Testing Position Sitting Flexion 55 Extension 35 Rotation Left 55 Rotation Right 55 Lateral Flexion Left 40 Lateral Flexion Right 40 PT-OP-M Strength Start: 03/16/19 07:34 Freq: Status: Active Protocol: Document 03/16/19 08:15 AMB (Rec: 03/16/19 13:02 AMB [email or web address]) Hip Strength Hip Manual Muscle Testing Right Flexion (L2) 3+ Fair+ Extension (S1) 3 Fair Left Flexion (L2) 3+ Fair+ Extension (S1) 3 Fair Knee Strength Knee Manual Muscle Testing Right Flexion (S2) 4 Good Extension (L3) 4 Good Left Flexion (S2) 4 Good Extension (L3) 4- Good- Ankle/Foot Strength Ankle and Foot Manual Muscle Testing Right Dorsiflexion (L4) 4 Good Plantarflexion (S1) 4 Good Left Dorsiflexion (L4) 4 Good Plantarflexion (S1) 4 Good PT-OP-Q Treatments Start: 03/16/19 07:34 Freq: Status: Active Protocol: Document 06/11/19 09:06 SP (Rec: 06/11/19 11:39 SP [id number]) Gym Equipment Therapeutic Ball 1 Exercise Details 65cm, chair at home progress to cushion Ball Size/Color marching, LAQ Body Position Sitting Reps/Duration 5 min Comments pt noted challenge with engaging TA and balance is also a challenge for her, trialed chair and cushion for home HEP Therapeutic Exercises Standing Exercises core march Standing Exercise Name SLS july pull down Resistance TB #1 Reps/Minutes 5 rep s x2 Comments cued PPT, alternate LE with slow pacing Manual Therapy Treatment Soft Tissue Mobilization Ql, ES, paraspinals, glut med, hip ERs Body Location R Mobilization Type Cross-Friction,Myofascial Release,Sustained Pressure Intensity/Depth Moderate Body Position Prone Comments sustained pressure with AROM hip IR/ER small range during glut med, and pelvic tilts ES/ Parasp/QL discussed ball at wall self home PT-OP-T Assessment and Plan Start: 03/16/19 07:34 Freq: Status: Active Protocol: Document 06/11/19 09:06 SP (Rec: 06/11/19 11:39 SP [id number]) Physical Therapy Assessment Goals Two Impairment strength Short Term Goal (STG) Hillary will improve her LE strength to grossly 4/5 or better. 06/01: PROGRESS MADE, but recent illness has increased deconditioning again . STG Duration 4 weeks Product Safety Officer Goal (LTG) Hillary will be independent with a home and gym based exercise plan that she can do without flaring her MS, back pain, or neck pain. 06/01 PROGRESS MADE LTG Duration 8 weeks One Impairment pain Short Term Goal (STG) Hillary will sit upright in a chair for 10 minutes with 5/10 pain or less. 06/01 NOT YET MET STG Duration 4 weks Senior Living Goal (LTG) Hillary will notice decreased frequency of her neck pain so that it is occuring on average one time per week. 06/01: NOT YET MET LTG Duration 8 weeks Assessment Summary Assessment Tx focused on R LBP decreased pain initially manual STMs then followed up with HEP review: seated core july, standing core july Tb resistance and seated QL/hip ERs with positive results of decreased LPB and looser than when arrived. Cued for slow stabililzation SLS during july for progress spinal stabilization. Physical Therapy Plan Frequency and Duration Frequency of Treatment 2x/Week Duration of Treatment 8 weeks Plan of Care Start Date 06/01/19 Plan of Care End Date 08/10/19 Therapeutic Interventions Therapeutic Interventions Aquatic Therapy,Balance Training,Home Exercise Program ,Manual Therapy,Neuromuscular Re-education,Therapeutic Activities,Therapeutic Exercises Modalities Cold Pack/Ice Massage,Electric Stimulation Next Visit Focus/Plan Next Note Type Treatment Note Next Visit Plan Assess response to tx. Next tx add: pelvic/core stabilization with balance and gym equip. Reassess HEP with regards to biggest issues of back and neck pain at this point. Continue core/ LE stability training and assess readiness to return to gym.
--- NOTE | 2019-07-26 11:39 | PT.OPDS ---
Current Diagnoses Multiple sclerosis (06/11/19) Spondylosis without myelopathy or radiculopathy, lumbosacral region (06/11/19) Cervicalgia (06/11/19) Visit Care Team Role Provider Type Hernán Wallace MD Attending Provider Physician Primary Care Provider Specialty: Internal Medicine Address: [address] [place] [address], [id number] Email: [email or web address] Visit Number Visit Number 12 Discharge Summary PT-OP-B Current Condition Start: 03/16/19 07:34 Freq: Status: Active Protocol: Document 03/16/19 08:15 AMB (Rec: 03/16/19 09:39 AMB [email or web address]) Current Condition History of Current Condition Onset Date 1 year ago Current Complaints neck pain, back pain, deconditioning due to MS History of Current Condition Hillary was diagnosed with MS in 1998. She had a lumbar fusion in 2007. Recently she had a lumbar spine rhizotomy which helped her pain, but she is now noticing pain lower in her back that goes down her left leg that is constant. For about the last year she has had occipital neck pain which has radiated into her head on the right, it is intermittent averaging about once per day and sharp but brief. Hillary lives alone with an elderly dog and cat. She has two steps to enter without a rail, and then 12 steps with a rail to get to her bedroom. 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 She used to dance, and then worked out at the gym, but had a difficult time returning to regular activity since her lumbar fusion in 2007. She walks without assistive device, and denies any falls in the last 6 months. She did have a fall on stairs where she felt her ankle give way a year ago, and does notice increased fatigue by the end of the day and is more likley to trip over her feet at that time. She does report her neurologist has tested her and thinks she has neuropathy, but she does not notice any obvious numbness or tingling in her feet. She does have reduced vision, with practically no vision in the right eye, and reduced peripheral vision in the left. Treatment Goals Patient/Caregiver Goals Return to a gym workout, reduce pain, be able to sit without back pain Prior Functional Status Baseline Function- ADL's Modified Independent Baseline Function- Mobility Modified Independent Current Functional Impairments (Reported) Functional Limitations- ADL's Pt drives but only during the day in places she knows. Sitting is painful, rolling over in bed is painful, goes on slow walks with her dog but can't walk fast. Personal Factors Other Personal Factors That May Effect chronic pain, MS Therapy/Recovery PT-OP-C Subjective Start: 03/16/19 07:34 Freq: Status: Active Protocol: Document 06/11/19 09:06 SP (Rec: 06/11/19 11:39 SP [id number]) OP-PT Subjective Patient Comments Patient Comments Pt reported LBP increased over the past week due to shoveling snow but today is 7/ 10 twangy/twinges usually gets with trunk rotation sititng up or seated turning PT-OP-D Balance Start: 03/16/19 07:34 Freq: Status: Active Protocol: Document 03/16/19 08:15 AMB (Rec: 03/16/19 11:16 AMB [email or web address]) Balance Tests Single Limb Standing Single Limb- Right 4 seconds Single Limb- Left 3 seconds Semi-Tandem Standing Semi-Tandem Standing Balance 30 seconds PT-OP-G Mobility & Gait Start: 03/16/19 07:34 Freq: Status: Active Protocol: Document 03/16/19 08:15 AMB (Rec: 03/16/19 11:16 AMB [email or web address]) OP Gait Assessment Comments Gait Comments Pt ambulates without assistive device without obvious foot drop but reports she walks better in the mornings. PT-OP-H Neuro Start: 03/16/19 07:34 Freq: Status: Active Protocol: Document 03/16/19 08:15 AMB (Rec: 03/16/19 11:16 AMB [email or web address]) Sensation Evaluation Comments Summary Comments Pt denies numbness tingling in feet, but does report intermittent difficulty with sensory testing PT-OP-J Posture/Palpation/Skin Start: 03/16/19 07:34 Freq: Status: Active Protocol: Document 03/16/19 08:15 AMB (Rec: 03/16/19 11:16 AMB [email or web address]) Palpation Assessment Location One Palpation Location tenderness at occiput Palpation Findings Soft Tissue Tightness,Muscle Guarding PT-OP-K Range of Motion Start: 03/16/19 07:34 Freq: Status: Active Protocol: Document 03/16/19 08:15 AMB (Rec: 03/16/19 11:16 AMB [email or web address]) Cervical Spine Range of Motion Cervical Spine Active Degrees Testing Position Sitting Flexion 55 Extension 35 Rotation Left 55 Rotation Right 55 Lateral Flexion Left 40 Lateral Flexion Right 40 PT-OP-M Strength Start: 03/16/19 07:34 Freq: Status: Active Protocol: Document 03/16/19 08:15 AMB (Rec: 03/16/19 13:02 AMB [email or web address]) Hip Strength Hip Manual Muscle Testing Right Flexion (L2) 3+ Fair+ Extension (S1) 3 Fair Left Flexion (L2) 3+ Fair+ Extension (S1) 3 Fair Knee Strength Knee Manual Muscle Testing Right Flexion (S2) 4 Good Extension (L3) 4 Good Left Flexion (S2) 4 Good Extension (L3) 4- Good- Ankle/Foot Strength Ankle and Foot Manual Muscle Testing Right Dorsiflexion (L4) 4 Good Plantarflexion (S1) 4 Good Left Dorsiflexion (L4) 4 Good Plantarflexion (S1) 4 Good PT-OP-T Assessment and Plan Start: 03/16/19 07:34 Freq: Status: Active Protocol: Document 07/26/19 11:12 AMB (Rec: 07/26/19 11:36 AMB [email or web address]) Physical Therapy Assessment Goals Two Impairment strength Short Term Goal (STG) Hillary will improve her LE strength to grossly 4/5 or better. 06/01: PROGRESS MADE, but recent illness has increased deconditioning again . STG Duration 4 weeks Care Home Goal (LTG) Hillary will be independent with a home and gym based exercise plan that she can do without flaring her MS, back pain, or neck pain. 06/01 PROGRESS MADE LTG Duration 8 weeks One Impairment pain Short Term Goal (STG) Hillary will sit upright in a chair for 10 minutes with 5/10 pain or less. 06/01 NOT YET MET STG Duration 4 weks Care Home Goal (LTG) Hillary will notice decreased frequency of her neck pain so that it is occuring on average one time per week. 06/01: NOT YET MET LTG Duration 8 weeks Assessment Summary Assessment Hillary attended 12 visits of physical therapy. During that time, her pain improved well, but then she had a respiratory infection, had to cancel appointments and overall felt more deconditioned and her pain flared again. She was then seen for 3 more visits, but then had a family emergency and has not returned calls to follow up/schedule more appointments. Therefore she is discharged at this time. Overall she had been showing good improvement, and was instructed in a home exercise program, but continues to have intermittent flare ups that worsen her sx. Physical Therapy Plan Discharge Physical Therapy Discharge Reasons No Longer Attending PT
== END 2019-07-27 08:20 ==
LOC: PHYS 09:00
PROVIDERS: PCP Internal Medicine; Visit Provider Internal Medicine
DX: G35 Multiple sclerosis (principal); M47.817 Spondylosis without myelopathy or radiculopathy, lumbosacral region; M54.2 Cervicalgia
CPT/HCPCS: 97110; 97140; 97162

== ENCOUNTER → 2020-03-12 19:40 | Outpatient (ROUT) | payer MEDICARE, SELFPAY ==
[2020-03-12 20:33] LABS: Cholesterol 256 mg/dL (140-199); Glucose 88 mg/dL (80-110); Triglycerides 65 mg/dL (35-150)
[2020-03-12 20:40] LABS: HDL Cholesterol 123 mg/dL (40-60); LDL Cholesterol Calculated 120 mg/dL (<100)
[2020-03-12 21:03] LABS: TSH w/ Reflex to FT4 2.24 uIU/mL (0.47-4.68)
== END ==
PROVIDERS: PCP Internal Medicine; Visit Provider Internal Medicine
DX: E03.9 Hypothyroidism, unspecified (principal); E78.2 Mixed hyperlipidemia
CPT/HCPCS: 80061; 82947; 84443

== ENCOUNTER → 2020-07-10 14:16 | Outpatient (CLI) | payer MEDICARE, MEDICAID, SELFPAY ==
--- NOTE | 2020-07-10 14:17 | DI.RAD.S_ITS ---
PROCEDURE: XR LUMBAR SPINE MIN 4V INDICATIONS: LOW BACK PAIN TECHNIQUE: 5 views of the lumbar spine were acquired, including bilateral oblique views. COMPARISON: [facility], CT, L-SPINE W/O CONTRAST, 03/11/2014, 16:39. [facility], MR, MR LUMBAR SPINE WITH/WITHOUT CONTRAST, 02/13/2018, 10:13. FINDINGS: Bones: 5 nonrib-bearing vertebrae are present. There is normal bony alignment. No vertebral body compression fractures. No suspicious bony lesions. Soft tissues: Overlying bowel gas pattern is normal. No suspicious soft tissue calcifications. Oblique images: No pars defects. IMPRESSION: Prior spine fusion surgery at L3-L4 with interbody disc prosthesis is again noted. No compression fracture is found, no subluxation is identified. A definite mold insert changer time with reference to prior CT and MR scanning is not seen. Dictated by: Leonardo Jose M.D. on 07/10/2020 at 15:07 Approved by: Leonardo Jose M.D. on 07/10/2020 at 15:08
== END ==
PROVIDERS: PCP Internal Medicine; Referring Provider Physical Medicine & Rehabilitation; Visit Provider Physical Medicine & Rehabilitation
DX: M54.5 Low back pain (principal); M51.26 Other intervertebral disc displacement, lumbar region; M51.27 Other intervertebral disc displacement, lumbosacral region
CPT/HCPCS: 72110

== ENCOUNTER → 2020-07-21 13:52 | Outpatient (CLI) | payer MEDICARE, MEDICAID, SELFPAY ==
--- NOTE | 2020-07-21 13:55 | DI.MRI.S_ITS ---
PROCEDURE: MR LUMBAR SPINE WO CON INDICATIONS: left L4.5 radic TECHNIQUE: Noncontrast sagittal T1 spin echo and T2 fast echo, sagittal STIR, axial T1 and T2 fast spin echo through the lumbar spine. In cases with scoliosis, additional coronal T2 fast spin echo may be performed. COMPARISON: [facility], MR, MR LUMBAR SPINE WITH/WITHOUT CONTRAST, 02/13/2018, 10:13. [facility], CR, XR LUMBAR SPINE MIN 4V, 07/10/2020, 15:25. FINDINGS: Image quality: Excellent. Alignment and Curvature: The same numbering system which was used on the prior MRI report will be used on the current report. There is transitional anatomy at the lumbosacral junction. There is a nodular mentor intervertebral disc at S1-S2. Please refer to the montage panel of the current examination for an explanation of the numbering system. There is mild, grade 1 retrolisthesis of L1 on L2, L2 on L3, and L3 on L4. Bone Marrow: Marrow is of normal overall signal. No acute vertebral body compression fractures. Posterior fusion hardware at L4-L5 is present, as before. There is mild reactive signal within the endplates adjacent to the L1-L2, L2-L3, L3-L4, L5-S1, and S1-S2 intervertebral discs. Spinal Cord: Conus medullaris terminates at the upper L3 level. Visualized cord demonstrates normal signal and size. Paraspinous Soft Tissues: No paravertebral masses. T12-L1: Mild disc desiccation. Mild bilateral facet hypertrophy. Mild canal stenosis. Mild foraminal stenosis. No change. L1-L2: Moderate disc height loss and desiccation. Mild diffuse disc bulge. Mild facet and ligamentum flavum hypertrophy. Mild canal stenosis. Mild bilateral foraminal stenosis. No change. L2-L3: Moderate disc height loss and desiccation. Mild diffuse disc bulge. Mild facet and ligamentum flavum hypertrophy. Mild epidural lipomatosis. Mild canal stenosis. Mild bilateral foraminal stenosis. No change. L3-L4: Mild disc height loss and desiccation. Moderate diffuse disc bulge. Mild facet and ligamentum flavum hypertrophy. Mild epidural lipomatosis. Moderate canal stenosis. Mild bilateral foraminal stenosis. No change. L4-L5: Status post fusion. Mild bilateral facet hypertrophy. Mild residual disc osteophyte complex. Mild canal stenosis. Mild bilateral foraminal stenosis. No change. L5-S1: Moderate disc height loss and desiccation. Moderate diffuse disc bulge with superimposed broad-based left posterolateral protrusion. Mild facet and ligamentum flavum hypertrophy. Mild epidural lipomatosis. Moderate canal stenosis. Moderate subarticular foraminal stenosis bilaterally is present, increased in the prior examination. S1-S2: Moderate disc height loss and desiccation. Mild diffuse disc bulge with small superimposed broad-based left posterolateral protrusion. Mild facet and ligamentum flavum hypertrophy. Mild canal stenosis. Moderate left and mild right foraminal stenosis. IMPRESSION: 1. Multilevel degenerative disc and facet disease, as well as ligamentum flavum hypertrophy and epidural lipomatosis. 2. Postsurgical sequelae. 3. Multilevel canal stenoses, worst at L3-L4 and L5-S1 where there are moderate canal stenosis. 4. Multilevel foraminal stenoses, worst at L5-S1 where there are moderate foraminal stenoses. 5. Atypical numbering system with transitional anatomy at S1. Recommend correlation with the montage panel of the current examination for numbering purposes prior to any lumbar spinal intervention. Dictated by: Desmond Heredia M.D. on 07/21/2020 at 14:14 Approved by: Desmond Heredia M.D. on 07/21/2020 at 14:22
== END ==
PROVIDERS: PCP Internal Medicine; Referring Provider Physical Medicine & Rehabilitation; Visit Provider Physical Medicine & Rehabilitation
DX: M51.26 Other intervertebral disc displacement, lumbar region (principal); M51.27 Other intervertebral disc displacement, lumbosacral region; Z13.820 Encounter for screening for osteoporosis; M85.851 Other specified disorders of bone density and structure, right thigh; Z78.0 Asymptomatic menopausal state; E07.9 Disorder of thyroid, unspecified; M51.37 Other intervertebral disc degeneration, lumbosacral region; M48.061 Spinal stenosis, lumbar region without neurogenic claudication; M48.07 Spinal stenosis, lumbosacral region; E88.2 Lipomatosis, not elsewhere classified; Z98.1 Arthrodesis status; Z82.62 Family history of osteoporosis
CPT/HCPCS: 72148; 77080

== ENCOUNTER → 2020-08-05 12:52 | Outpatient (CLI) | payer MEDICARE, MEDICAID, SELFPAY ==
[2020-08-05 15:46] LABS: COVID19 -Nasal RAPID Negative (Negative)
== END ==
PROVIDERS: PCP Internal Medicine; Visit Provider Physical Medicine & Rehabilitation
DX: Z20.822 Contact with and (suspected) exposure to COVID-19 (principal)
CPT/HCPCS: 87635; C9803

== ENCOUNTER 2020-08-07 09:44 | Outpatient (CLI) | payer MEDICARE, MEDICAID, SELFPAY ==
[2020-08-07] VITALS (12 sets, daily range): BP systolic 137–173; BP diastolic 65–80; PULSE 61–77; RESP 15–18; TEMP 37.2–37.3; O2SAT 95–100
--- NOTE | 2020-08-07 09:46 | DI.RAD.S_ITS ---
PROCEDURE: PAIN L/S TRANSFORAMINAL INJECT INDICATIONS: SPONDYLOSIS COMPARISON: [facility], , PAIN L/S TRANSFORAMINAL INJECT, 06/14/2018, 14:49. FINDINGS: Fluoroscopic spot filming was performed to verify placement of a spinal needle at the L4-L5 level, as labeled on the films. Appropriate location of the needle tip was confirmed by injection of iodinated contrast. IMPRESSION: Intraprocedural examination within normal limits. Dictated by: Felix Wei M.D. on 08/07/2020 at 10:17 Approved by: Felix Wei M.D. on 08/07/2020 at 10:18
[2020-08-07] MEDS: fentaNYL 100 MCG/2 ML INJ 50 MCG IV (10:42)
[2020-08-07] MEDS: IOPAMIDOL 15 ML VIAL 3 ML INJ (10:49)
[2020-08-07] MEDS: DEXAMETHASONE 10 MG/ML VIAL 20 MG INJ (10:49)
[2020-08-07] MEDS: BUPIVACAINE 0.25% (PF) VIAL 2 ML INJ (10:49)
[2020-08-07] MEDS: methylPREDNISolone acetate 80 MG/ML VIAL INJ (10:50)
[2020-08-07] MEDS: MIDAZOLAM 5 MG/5 ML VIAL IV (10:56)
--- NOTE | 2020-08-07 11:05 | P.PCN_ITS ---
Date/Time/Diagnoses Date of procedure: 08/07/20 Time of procedure: 11:05 Pre-procedure diagnosis: 1. FORAMINAL STENOSIS WITH LE SYMPTOMS Post-procedure diagnosis: same Procedure Notes Procedure: 1. FLUOROSCOPICALLY GUIDED CONTRAST CONTROLLED TRANSFORAMINAL EPIDURAL STEROID INJECTION - LEFT L4/5 Indications: Hillary is referred by Dr. Wallace for treatment of Foraminal Stenosis with Left LE Symptoms Physician: Aries Valdez Total Fluoroscopy time (seconds): 14 Total sedation minutes: 18 Complications: none Procedure in detail & Post-procedure care: FINDINGS Foraminal Nerve Root Compression secondary to disc disease and facet hypertrophy DESCRIPTION OF PROCEDURE Following review of allergy and review of potential side effects and complications, including, but not necessarily limited to, infection, allergic reaction, local tissue breakdown, stroke, temporary or permanent nerve injury, paralysis, and possible , the patient indicated that the patient understood and agreed to proceed. An informed consent document was signed by the patient, witnessed by a nurse, and placed in the patient's chart. Additionally, other treatment options including medications, modalities, and physical therapy were reviewed with the patient. After review of previous anaesthesic history and IV conscious sedation the patient was deemed safe to proceed with today?s procedure with IV conscious sedation as ASA class II designation. Safety time-out was performed to confirm patient ID, procedure to be performed and site of procedure. IV sedation was accomplished with a combination of 4mg of Versed and 50mcg of Fentanyl administered by the RN after DO order, titrated to patient comfort during the course of the procedure while the patient remained responsive to all verbal commands In the prone position following sterile prep and drape of the lumbar region, the left L4/5 posterior neuroforamen was identified fluoroscopically. The skin was anesthetized via a 25-gauge 1.5-inch needle with 1% lidocaine solution. At this point, a 25-gauge 3.5-inch spinal needle was atraumatically introduced and advanced under fluoroscopic guidance through the posterior left L4/5 neuroforamen to approximately the anterior aspect of the canal. Depth was confirmed on lateral view. Following negative aspiration, injection of approximately 1.5 cc of Isovue 200 under live fluoroscopy in the AP view confirmed excellent flow along the nerve root, into the epidural space without vascular or intrathecal uptake observed Radiological data, including multiple fluoroscopic views of the lumbosacral spine, reveal a spinal needle at the left L4/5 posterior neuroforamen. Subsequent views show flow of contrast material flowing superiorly and inferiorly along the nerve root confirming epidural flow. Subsequently, a test dose of 1.5 cc of 1% lidocaine solution was administered and patient was observed for two minutes for signs or symptoms of complications, including abdominal pain, shortness of breath, bilateral upper or lower extremity weakness, nausea and vomiting, prior to steroid injection. At this point, a total of 3cc or 20mg of dexamethasone and 80mg Depo medrol was injected without incident. The procedure tolerated the procedure well without signs or symptoms of complications prior to transfer to the recovery area continued monitoring without incident. The patient was then transferred to the recovery area where they were observed for an appropriate time after the injection. The patient reported a VAS score of 7 prior to the procedure and a post- procedure VAS of 0. POST OP INSTRUCTIONS The patient was provided a Pain Log to continue to record their response to the target-specific procedure prior to follow-up visit with their referring physician. Additionally, specific post-injection care instructions and a contact number to our office were provided if concerns arise regarding possible complications associated with the procedure are suspected.
== END 2020-08-07 12:08 | disposition home or self-care (01) ==
LOC: RAD 09:46
PROVIDERS: PCP Internal Medicine; Referring Provider Physical Medicine & Rehabilitation; Visit Provider Physical Medicine & Rehabilitation
DX: M48.061 Spinal stenosis, lumbar region without neurogenic claudication (principal); M51.16 Intervertebral disc disorders with radiculopathy, lumbar region
CPT/HCPCS: 64483; 99152; J0702; J1040; J1100; J2250; J3010

== ENCOUNTER → 2021-03-03 12:28 | Outpatient (CLI) | payer MEDICARE, MEDICAID, SELFPAY ==
[2021-03-03 15:05] LABS: COVID19 -Nasal RAPID Negative (Negative)
== END ==
PROVIDERS: PCP Internal Medicine; Visit Provider Physical Medicine & Rehabilitation
DX: Z20.822 Contact with and (suspected) exposure to COVID-19 (principal)
CPT/HCPCS: 87635; C9803

== ENCOUNTER 2021-03-05 11:37 | Outpatient (CLI) | payer MEDICARE, MEDICAID, SELFPAY ==
[2021-03-05] VITALS (9 sets, daily range): BP systolic 143–187; BP diastolic 60–84; PULSE 70–76; RESP 12–21; TEMP 36.9–37.1; O2SAT 96–99
--- NOTE | 2021-03-05 11:39 | DI.RAD.S_ITS ---
PROCEDURE: PAIN L/S FACET INJ/BLK 1ST USHA COMPARISON: Outside Facility, RG, MRI L-SPINE W/WO CONTRAST, 08/10/2020, 19:25. [facility], XA, PAIN L/S TRANSFORAMINAL INJECT, 08/07/2020, 10:49. INDICATIONS: SPONDYLOSIS FINDINGS: Fluoroscopic spot filming was performed to verify placement of spinal needles on both sides at the L3, L4, L5, and S1 levels, as labeled on the films. Appropriate location of the needle tips was confirmed by injection of iodinated contrast. L4-5 postoperative hardware can be seen on both sides. IMPRESSION: Intraprocedural examination within normal limits. Dictated by: Felix Wei M.D. on 03/05/2021 at 12:28 Approved by: Felix Wei M.D. on 03/05/2021 at 12:30
[2021-03-05] MEDS: fentaNYL 100 MCG/2 ML INJ 50 MCG IV (12:25)
[2021-03-05] MEDS: BUPIVACAINE 0.5% (PF) VIAL 5 ML INJ (12:30)
[2021-03-05] MEDS: IOPAMIDOL 15 ML VIAL 3 ML INJ (12:30)
[2021-03-05] MEDS: MIDAZOLAM 5 MG/5 ML VIAL IV (12:35)
--- NOTE | 2021-03-05 12:49 | P.PCN_ITS ---
Date/Time/Diagnoses Date of procedure: 03/05/21 Time of procedure: 12:50 Pre-procedure diagnosis: 1. FACET ARTHROPATHY Post-procedure diagnosis: same Procedure Notes Procedure: 1. BILATERAL- L3, L4, L5 and L6 DIAGNOSTIC MB BLOCKS with LA Anesthetic Indications: Hillary is referred by Dr. Wallace for treatment of Bilateral Axial LBP. Physician: Aries Valdez Total Fluoroscopy time (seconds): 16 Total sedation minutes: 16 Complications: none Procedure in detail & Post-procedure care: DESCRIPTION OF PROCEDURE Fluoroscopically guided, contrast-controlled bilateral L3, L4, L5 and L6 medial branch blocks with 0.5cc of 0.5% Marcaine. Following review of allergy and review of potential side effects and complications, including, but not necessarily limited to, infection, allergic reaction, local tissue breakdown, nerve injury, paralysis, stroke and possible , the patient indicated that the patient understood and agreed to proceed. An informed consent document was signed by the patient, witnessed by a nurse, and placed in the patient's chart. After review of previous anaesthesic history and IV conscious sedation the patient was deemed safe to proceed with today's procedure with IV conscious zachery tion as ASA class II designation. Safety time-out was performed to confirm patient ID, procedure to be performed and site of procedure. IV sedation was accomplished with a combination of 5mg of Versed and 50mcg of Fentanyl was administered by the RN after DO order, titrated to patient comfort during the course of the procedure while the patient remained responsive to all verbal commands In the prone position, following sterile prep and drape of the lumbar region, the right L3, L4, L5 and L6 anatomical location of the medial branch of the dorsal ramus was identified fluoroscopically. Subsequently an anesthetic skin wheal using 1% lidocaine solution was initiated at each of the anatomical spots. Subsequently then a 22-gauge 3.5-inch spinal needle was atraumatically introduced and advanced under fluoroscopic guidance at each of the corresponding sites at the right L3, L4, L5 and L6 MB. After negative aspiration, 0.2cc of Isovue 200 was injected, confirming placement without vascular or intrathecal uptake. Subsequently then 0.5cc of 0.5% Marcaine solution was injected at each of the corresponding sites at the right L3, L4, L5 and L6 medial branch locations. The identical procedure was replicated on the left. The patient tolerated the procedure well without signs or symptoms of complications prior to transfer to the recovery area continued monitoring without incident. Post-procedure, the patient was monitored initiating provocative activities to measure the amount of relief from block of the facetogenic pain. The patient reported a VAS of 7 prior to the procedure and a post-procedure VAS of 1. It has been a pleasure to assist in the diagnostic and therapeutic care of your patient. POST OP INSTRUCTIONS The patient was provided with a Pain Log to complete over the next several hours and subsequent days prior to the patient's follow up with the ordering physician. If the patient has chief business development officer relief to the solution applied, then they may be a candidate for medial branch rhizotomy. The patient is aware, was provided, once again, with a Pain Log and will follow up with the referring physician for review and clinical correlation
[2021-03-05] MEDS: LIDOCAINE 1% 20 ML 10 ML INJ (12:58)
== END 2021-03-05 13:05 | disposition home or self-care (01) ==
PROVIDERS: PCP Internal Medicine; Referring Provider Physical Medicine & Rehabilitation; Visit Provider Physical Medicine & Rehabilitation
DX: M47.816 Spondylosis without myelopathy or radiculopathy, lumbar region (principal); M47.817 Spondylosis without myelopathy or radiculopathy, lumbosacral region; M54.59 Other low back pain
CPT/HCPCS: 64493; 64494; 64495; 99152; J2250; J3010

== ENCOUNTER → 2021-07-07 10:21 | Outpatient (CLI) | payer MEDICARE, MEDICAID, SELFPAY ==
[2021-07-07 13:54] LABS: COVID19 -Nasal RAPID Negative (Negative)
== END ==
PROVIDERS: PCP Internal Medicine; Visit Provider Physical Medicine & Rehabilitation
DX: Z20.822 Contact with and (suspected) exposure to COVID-19 (principal)
CPT/HCPCS: 87635; C9803

== ENCOUNTER 2021-07-09 10:19 | Outpatient (CLI) | payer MEDICARE, MEDICAID, SELFPAY ==
[2021-07-09] VITALS (18 sets, daily range): BP systolic 140–196; BP diastolic 70–86; PULSE 56–70; RESP 14–23; TEMP 37.3; O2SAT 96–100
--- NOTE | 2021-07-09 10:20 | DI.RAD.S_ITS ---
PROCEDURE: PAIN L/S MED/LAT N RFA BILAT INDICATIONS: SPONDYLOSIS COMPARISON: None. FINDINGS: Fluoroscopic spot filming was performed to verify placement of spinal needles at the bilateral L2-L3, L3-L4, L4-L5 and L5-S1 neural for level(s), as labeled on the films. Appropriate location(s) of the needle tip(s) was confirmed by injection of iodinated contrast. IMPRESSION: Access needles appropriately placed at the bilateral L2-L3, L3-L4, L4-L5 and L5-S1 neural foramina for medial nerve branch rhizotomy. Dictated by: Tash Moreau MD, PhD on 07/09/2021 at 15:13 Approved by: Tash Moreau MD, PhD on 07/09/2021 at 15:14
[2021-07-09] MEDS: BUPIVACAINE 0.5% (PF) VIAL 5 ML INJ (11:46)
[2021-07-09] MEDS: LIDOCAINE 1% 20 ML (11:46)
[2021-07-09] MEDS: fentaNYL 100 MCG/2 ML INJ (12:18)
[2021-07-09] MEDS: MIDAZOLAM 5 MG/5 ML VIAL IV (12:18)
--- NOTE | 2021-07-09 12:52 | P.PCN_ITS ---
Date/Time/Diagnoses Date of procedure: 07/09/21 Time of procedure: 12:52 Pre-procedure diagnosis: 1. RECALCITRANT FACET ARTHROPATHY This procedure is found to meet the Governor's proclamation 20-24.2 regarding non urgent procedures. This patient meets multiple criteria for the procedure including continuing or worsening of significant or severe pain, combined with further deterioration of the patient's condition or overall health as well as delay in treatment would be expected to result in less positive ultimate medical outcome. Therefore the decision to perform the procedure in an outpatient hospital setting is found to be in accordance with guidelines of the proclamation. Post-procedure diagnosis: same Procedure Notes Procedure: 1. BILATERAL L2, L3, L4 AND L5 MEDIAL BRANCH RADIOFREQUENCY NEUROTOMY Indications: Hillary is referred by Dr. Hawley for treatment of facet arthropathy. Physician: Aries Valdez Total Fluoroscopy time (seconds): 36 Total sedation minutes: 62 Complications: none Procedure in detail & Post-procedure care: DESCRIPTION OF PROCEDURE Bilateral L2, L3, L4 and L5 medial branch radiofrequency neurotomy The patient is well known to this clinic having undergone previous facet injections with good but temporary relief. The patient has experienced appropriate, concordant relief with previous facet and median branch blocks but the patient's pain has been recalcitrant to further conservative measures. Therefore, based upon the patient's relief and persistent symptoms, the patient is considered an appropriate candidate for facet rhizotomy. All of the patient's questions regarding the risks versus benefits of the procedure, including, but not limited to, bleeding, infection, temporary as well as lasting nerve injury, paralysis, stroke, and , as well treatment alternatives were answered to satisfaction. After obtaining informed consent, denial of pertinent drug allergies, as well as being made aware of the potential risks of bleeding, infection, spinal cord trauma, paralysis, temporary and permanent nerve damage, seizure, stroke, and possible , the patient was brought to the fluoroscopy suite and positioned prone on the fluoroscopy table. The lumbar region was prepped with Betadine and covered with a fenestrated drape in the usual sterile fashion. Appropriate monitors applied including pulse oximeter, pulse, and blood pressure for regular monitoring throughout the procedure. After review of previous anaesthesic history and IV conscious sedation the patient was deemed safe to proceed with today's procedure with IV conscious zachery tion as ASA class II designation. Safety time-out was performed to confirm patient ID, procedure to be performed and site of procedure. IV sedation was accomplished with a combination of 5mg of Versed and 50mcg of Fentanyl administered by the RN after DO order, titrated to patient comfort during the course of the procedure while the patient remained responsive to all verbal commands. After local infiltration using 1% lidocaine, under fluoroscopic guidance, a 10- cm RF insulated needle with a 10-mm active tip was positioned parallel to the junction of the right the superior articulating process where the L5 medial branch resides. Needle placement was confirmed with motor stimulation of .5v on the right which produced local stimulation without radicular component. The stimulation was then increased to 2v with, once again, only local multifidus stimulation without radicular component. The needle was then removed and the identical procedure was performed along the length of the right L4 medial branch with motor stimulation at .7v on the right. The identical procedure was once again performed along the length of the right L3 and medial branch with motor stimulation of .5v on the right. The identical procedure was once again performed along the length of the right L2 and medial branch with motor stimulation of .5v on the right. The medial branches were then anesthetised with 0.5% marcaine. This was then followed by two discreet lesions performed at 80 degrees Celsius for 90 seconds each. The identical procedures were repeated on the left. The patient tolerated the procedure well without signs or symptoms of complications prior to transfer to the recovery area continued monitoring without incident. The patient was then transferred to the recovery area where they were observed for an appropriate period of time after the injection. The patient reported a VAS score of 9 prior to the procedure and a post-procedure VAS of 0. POST OP INSTRUCTIONS The patient was provided a Pain Log to continue to record the patient's response to the target-specific procedure prior to the patient's follow-up visit with the referring physician. Additionally, specific post-injection care instructions and a contact number to our office were provided if concerns arise regarding possible complications associated with the procedure are suspected.
== END 2021-07-09 13:40 | disposition home or self-care (01) ==
PROVIDERS: PCP Internal Medicine; Referring Provider Physical Medicine & Rehabilitation; Visit Provider Physical Medicine & Rehabilitation
DX: M47.816 Spondylosis without myelopathy or radiculopathy, lumbar region (principal)
CPT/HCPCS: 64635; 64636; 99152; 99153; J2250; J3010

== ENCOUNTER → 2021-08-19 15:50 | Outpatient (CLI) | payer MEDICARE, MEDICAID, SELFPAY ==
--- NOTE | 2021-08-19 | DI.MRI.S_ITS ---
PROCEDURE: MR KNEE RT WO CON INDICATIONS: Pain in right knee TECHNIQUE: Noncontrast sagittal PD fast spin echo and T2 fast spin echo with fat saturation, sagittal 3-D FLASH with fat saturation; coronal T1 spin echo and PD fast spin echo with fat saturation, and axial PD fast spin echo with fat saturation through the knee. COMPARISON: [facility], CR, XR KNEE 3 VIEWS RIGHT, 06/15/2021, 10:53. FINDINGS: Image quality: Excellent. Menisci: There is a prominent radial tear involving the posterior horn of the medial meniscus. There is intrasubstance degeneration of the body of the medial meniscus. The lateral meniscus demonstrates normal morphology and internal signal. Cruciate ligaments: The anterior and posterior cruciate ligaments appear intact. Medial structures: The medial collateral ligament appears intact. The semimembranosus tendon insertions and meniscocapsular junction appear intact. Visualized portions of the pes anserinus tendons appear normal. No abnormal bursal fluid. Lateral structures: The lateral collateral ligament, long and short heads of the biceps femoris tendon appear intact. The popliteus tendon appears normal. Iliotibial band appears normal. Anterior structures: The quadriceps and patellar tendons appear intact. Patellar alignment is normal. No femoral trochlear dysplasia or ventral trochlear prominence. No edema in the infrapatellar fat pad. Bones and cartilage: No bone marrow contusions or fractures. Tricompartmental chondral malacia, most pronounced and severe in the medial femorotibial compartment and patellofemoral compartment with cartilage denuded articular surface. There is subchondral edema in the medial tibial plateau. Joint space: There is moderate knee joint effusion. Trace Hammer's cyst. Normal appearing synovial plicae are incidentally noted. IMPRESSION: 1. Prominent radial tear of the posterior horn of the medial meniscus. There is also intrasubstance degeneration of the body of the medial meniscus. 2. Severe cartilage loss in the medial femorotibial compartment and patellofemoral compartment. 3. Subchondral edema in medial tibial plateau. 4. Moderate knee joint effusion. Dictated by: Julee Wagner M.D. on 08/20/2021 at 9:20 Approved by: Julee Wagner M.D. on 08/20/2021 at 9:32
== END ==
PROVIDERS: PCP Internal Medicine; Referring Provider Student in an Organized Health Care Education/Training Program; Visit Provider Student in an Organized Health Care Education/Training Program
DX: S83.241A Other tear of medial meniscus, current injury, right knee, initial encounter (principal); M25.461 Effusion, right knee; M25.561 Pain in right knee; G89.29 Other chronic pain
CPT/HCPCS: 73721

== ENCOUNTER → 2021-09-07 10:30 | Outpatient (CLI) | payer MEDICARE, MEDICAID, SELFPAY ==
--- NOTE | 2021-09-07 10:33 | DI.RAD.S_ITS ---
PROCEDURE: XR KNEE RT 3V INDICATIONS: Possible tibial plateau fracture medial TECHNIQUE: 3 views of the knee were acquired. COMPARISON: [facility], , KNEE 1-2 VIEWS RIGHT, 04/26/2015, 11:07. FINDINGS: Bones: No acute fractures or dislocations. Well corticated fragment adjacent to superior patella is seen new since 2015 study and is suggestive of subacute to chronic avulsion injury in this area. Bzar-[id number] tricompartmental osteoarthritis is seen more prominent in medial femoral tibial compartment. No suspicious bony lesions. Soft tissues: No joint effusion. No suspicious soft tissue calcifications. IMPRESSION: No acute right knee fracture or dislocation. Old injury involving superior and lateral aspect of patella. No significant joint effusion. [id number] tricompartmental osteoarthritis. Dictated by: Zain Peraza M.D. on 09/07/2021 at 11:05 Approved by: Zain Peraza M.D. on 09/07/2021 at 11:06
== END ==
PROVIDERS: PCP Internal Medicine; Referring Provider Physical Medicine & Rehabilitation; Visit Provider Physical Medicine & Rehabilitation
DX: S82.141A Displaced bicondylar fracture of right tibia, initial encounter for closed fracture (principal); M17.11 Unilateral primary osteoarthritis, right knee
CPT/HCPCS: 73562

== ENCOUNTER → 2021-12-23 12:19 | Outpatient (CLI) | payer MEDICARE, MEDICAID, SELFPAY ==
--- NOTE | 2021-12-23 12:20 | DI.RAD.S_ITS ---
PROCEDURE: XR CHEST 2V INDICATIONS: Cough TECHNIQUE: 2 views of the chest were acquired. COMPARISON: [facility], CHEST 2 VIEW, 07/20/2010, 14:27. [facility], CHEST 2 VIEW, 04/26/2015, 11:07. [facility], CHEST 2 VIEW, 05/12/2017, 11:53. FINDINGS: Surgical changes and devices: Cholecystectomy clips are seen. Lungs and pleura: Lungs are clear. No pleural effusions or pneumothorax. Mediastinum: Mediastinal contours are normal. Heart size is normal. Bones and chest wall: No suspicious bony abnormalities. Age-appropriate bony degenerative changes are seen. Soft tissues appear unremarkable. IMPRESSION: Clear lungs, without infiltrates. Postoperative and degenerative changes are seen. Dictated by: Felix Wei M.D. on 12/23/2021 at 13:11 Approved by: Felix Wei M.D. on 12/23/2021 at 13:12
== END ==
PROVIDERS: PCP Internal Medicine; Referring Provider Nurse Practitioner Family; Visit Provider Nurse Practitioner Family
DX: R05.9 Cough, unspecified (principal)
CPT/HCPCS: 71046

== ENCOUNTER → 2022-02-04 16:16 | Outpatient (CLI) | payer MEDICARE, MEDICAID, SELFPAY ==
--- NOTE | 2022-02-04 16:17 | DI.MRI.S_ITS ---
PROCEDURE: MR CERVICAL SPINE WO/W CON INDICATIONS: Neck pain right upper extremity paresthesias TECHNIQUE: Noncontrast sagittal T1 spin echo and T2 fast spin echo, sagittal STIR, foraminal oblique sagittal T2 fast spin echo, axial gradient echo or T2 fast spin echo through the cervical spine. After the administration of contrast, axial and sagittal T1 spin echo with fat saturation through the cervical spine. COMPARISON: [facility], MR, CERVICAL SPINE W&W/O CONTRAST, 12/06/2014, 15:29. [facility], MR, MR CERVICAL SPINE WITH/WITHOUT CONTRAST, 02/20/2020, 13:34. [facility], MR, MR CERVICAL SPINE WITH/WITHOUT CONTRAST, 11/10/2017, 15:12. FINDINGS: Image quality: This examination is limited by involuntary motion artifact. Alignment and curvature: There is normal bony alignment. Marrow: Marrow is normal in overall signal, without suspicious enhancement. Spinal cord: Visualized spinal cord has normal size. Within the C1-C2 level and at the C6 level, there is minimally increased T2 weighted signal, which is similar to prior studies. No abnormal enhancement can be seen at these sites or elsewhere. No cerebellar tonsillar herniation. Paraspinous soft tissues: No paravertebral masses or suspicious enhancement. C2-3: The disc height and disc signal are relatively well preserved. A mild degree of generalized disc osteophyte complex is seen. There is at least moderate right-sided and mild left-sided facet hypertrophy seen. There is ljwy-qv-aoefwxuw right-sided and no left-sided neural foraminal narrowing. No significant central canal narrowing is seen. When comparison is made with the prior images, these findings are similar. C3-4: Mild loss of disc height is seen. Loss of disc signal is seen. Mild to moderate disc osteophyte complex is seen. At least moderate facet hypertrophy is seen. There is moderate to severe right-sided and moderate left-sided neural foraminal narrowing. Mild central canal narrowing is seen. No significant change from the prior. C4-5: The disc height is well-preserved. Loss of disc signal is seen at this level. Mild to moderate disc osteophyte complex is seen. At least moderate facet hypertrophy can be seen. Moderate bilateral neural foraminal narrowing is seen. Mild central canal narrowing is seen. When comparison is made with the prior images, these findings are similar. C5-6: Moderate loss of disc height is seen. Loss of disc signal is seen. Moderate generalized disc osteophyte complex is seen. At least moderate facet hypertrophy is seen. There is moderate right-sided and at least moderate left-sided neural foraminal narrowing seen. No significant central canal narrowing is seen at this level. Stable from the prior study. C6-7: The disc height is well-preserved. Loss of disc signal is seen at this level. Mild to moderate disc osteophyte complex is seen. There is at least moderate facet hypertrophy seen at this level. There is moderate right-sided and disc-yl-cfmzbmea left-sided neural foraminal narrowing. The central canal is widely patent. No significant change from the prior. C7-T1: The disc height is well-preserved. Loss of disc signal is seen at this level. A mild degree of generalized disc osteophyte complex is seen. No neural foraminal narrowing or central canal narrowing can be seen. No significant change from the prior. IMPRESSION: Stable areas of T2 weighted hyperintensity can be seen at the C2 level and at the C6 level, without enhancement. Multiple levels of cervical spine degenerative change are seen, which are similar to the prior. Dictated by: Felix Wei M.D. on 02/05/2022 at 10:07 Approved by: Felix Wei M.D. on 02/05/2022 at 10:17
== END ==
PROVIDERS: Referring Provider Physical Medicine & Rehabilitation; Visit Provider Physical Medicine & Rehabilitation
DX: G35 Multiple sclerosis (principal); M54.12 Radiculopathy, cervical region
CPT/HCPCS: 72156; A9579

== ENCOUNTER → 2022-08-26 09:59 | Outpatient (CLI) | payer MEDICARE, MEDICAID, SELFPAY ==
[2022-08-26 11:18] LABS: Add Manual Diff / Slide Review NO; Basophils Absolute Auto 100 /uL (0-100); Eosinophils Absolute Auto 100 /uL (0-450); Eosinophils Percent Auto 1.4 % (2-4); Hematocrit 42.7 % (36-46); Hemoglobin 14.3 g/dL (12.0-16.0); Lymphocytes Absolute Auto 1500 /uL (1100-4500); Lymphocytes Percent Auto 21.3 % (25-40); Mean Corpuscular HGB Conc 33.6 % (30-36); Mean Corpuscular Hemoglobin 30.7 PG (26-34); Mean Corpuscular Volume 91.4 fL (80-100); Monocytes Absolute Auto 700 /uL (0-900); Monocytes Percent Auto 9.7 % (3-14); Neutrophils Absolute Auto 4800 /uL (1500-7000); Neutrophils Percent Auto 66.6 % (50-75); Platelet Count 212 X10^3/uL (150-400); Red Blood Cell Count 4.67 X10^6/uL (4.0-5.2); Red Cell Distribution Width 13.1 % (11.6-14.8); White Blood Cell Count 7.2 X10^3/uL (4.5-11.0)
[2022-08-26 11:41] LABS: Alanine Aminotransferase 19 IU/L (<35); Albumin 4.1 g/dL (3.5-5.0); Albumin Globulin Ratio 1.4 (1.0-2.8); Alkaline Phosphatase 53 U/L (38-126); Aspartate Aminotransferase 26 IU/L (14-36); BUN Creatinine Ratio 21.5 (6-22); Bilirubin Total 0.7 mg/dL (0.2-1.3); Blood Urea Nitrogen 20 mg/dL (7-17); Calcium 9.1 mg/dL (8.4-10.2); Carbon Dioxide 28 mmol/L (22-32); Chloride 104 mmol/L (98-107); Cholesterol 266 mg/dL (140-199); Estimated Glomerular Filt Rate > 60 mL/min (>60); Globulin 2.9 g/dL (1.7-4.1); Glucose 102 mg/dL (80-110); HEMOLYSIS < 15 (0-50); Potassium 4.2 mmol/L (3.4-5.1); Sodium 137 mmol/L (137-145); Triglycerides 60 mg/dL (35-150)
[2022-08-26 11:51] LABS: HDL Cholesterol 125 mg/dL (40-60); LDL Cholesterol Calculated 129 mg/dL (<100)
[2022-08-26 11:53] LABS: Free T4, Direct Thyroxine 1.55 ng/dL (0.78-2.19)
[2022-08-26 12:07] LABS: Thyroid Stimulating Hormone 1.37 uIU/mL (0.47-4.68)
[2022-08-27 06:04] LABS: Labcorp Hemoglobin (Hb) A1c 5.6 % (4.8-5.6)
== END ==
PROVIDERS: PCP Family Medicine; Referring Provider Family Medicine; Visit Provider Family Medicine
DX: E03.9 Hypothyroidism, unspecified (principal); G35 Multiple sclerosis; R03.0 Elevated blood-pressure reading, without diagnosis of hypertension; R73.03 Prediabetes
CPT/HCPCS: 36415; 80053; 80061; 83036; 84439; 84443; 85025

== ENCOUNTER → 2023-01-06 13:05 | Outpatient (CLI) | payer MEDICARE, MEDICAID, SELFPAY ==
[2023-01-06 15:00] LABS: Cholesterol 249 mg/dL (140-199); HDL Cholesterol 101 mg/dL (40-60); LDL Cholesterol Calculated 135 mg/dL (<100); Triglycerides 64 mg/dL (35-150)
== END ==
PROVIDERS: PCP Family Medicine; Referring Provider Family Medicine; Visit Provider Family Medicine
DX: E78.9 Disorder of lipoprotein metabolism, unspecified (principal)
CPT/HCPCS: 36415; 80061

== ENCOUNTER 2023-03-08 14:30 | Outpatient (CLI) | payer MEDICARE, MEDICAID, SELFPAY ==
[2023-03-08] VITALS (9 sets, daily range): BP systolic 136–171; BP diastolic 64–79; PULSE 61–68; RESP 12–20; TEMP 37.2; O2SAT 97–100
--- NOTE | 2023-03-08 14:32 | DI.RAD.S_ITS ---
PROCEDURE: PAIN L INTERLAMINAR/CAUDAL INJ INDICATIONS: SPONDYLOSIS COMPARISON: None. FINDINGS: Fluoroscopic spot filming was performed to verify placement of spinal needles at the L4-5 level(s), as labeled on the films. Appropriate location(s) of the needle tip(s) was confirmed by injection of iodinated contrast. IMPRESSION: Needle placement overlying L4-5 with contrast injection. Dictated by: Yajaira Hall M.D. on 03/08/2023 at 21:23 Approved by: Yajaira Hall M.D. on 03/08/2023 at 21:23
[2023-03-08] MEDS: fentaNYL 100 MCG/2 ML INJ 50 MCG IV (15:17)
[2023-03-08] MEDS: MIDAZOLAM 2 MG/2 ML VIAL IV (15:17)
[2023-03-08] MEDS: BUPIVACAINE 0.25% (PF) VIAL 2 ML INJ (15:22)
[2023-03-08] MEDS: iopamidoL 15 ML VIAL 3 ML INJ (15:22)
[2023-03-08] MEDS: DEXAMETHASONE 10 MG/ML VIAL 20 MG INJ (15:22)
--- NOTE | 2023-03-08 15:32 | P.PCN_ITS ---
Date/Time/Diagnoses Date of procedure: 03/08/23 Time of procedure: 15:33 Pre-procedure diagnosis: 1. HNP WITH RADICULAR FEATURES, 2. MULTILEVEL CENTRAL STENOSIS, Post-procedure diagnosis: same Procedure Notes Procedure: 1. FLUOROSCOPICALLY GUIDED CONTRAST CONTROLLED INTERLAMINAR EPIDURAL STEROID INJECTION -L4/5 Indications: Hillary is referred by Dr. Ford for treatment of Bilateral Foraminal Stenosis R>L LE symptoms. Physician: Aries Valdez Total Fluoroscopy time (seconds): 12 Total sedation minutes: 13 Complications: none Procedure in detail & Post-procedure care: FINDINGS Multilevel Central Spinal Stenosis with Nerve Root Compression DESCRIPTION OF PROCEDURE Fluoroscopically guided, contrast-controlled L4/5 translaminar epidural steroid injection. Following review of allergy and review of potential side effects and complications, including, but not necessarily limited to, infection, allergic reaction, local tissue breakdown, temporary as well as permanent nerve injury, paralysis, stroke and possible , the patient indicated that the patient understood and agreed to proceed. An informed consent document was signed by the patient, witnessed by a nurse, and placed in the patient's chart. Additionally, other treatment options including modalities, medications, and physical therapy were reviewed with the patient. After review of previous anaesthesic history and IV conscious sedation the patient was deemed safe to proceed with today?s procedure with IV conscious sedation as ASA class II designation. Safety time-out was performed to confirm patient ID, procedure to be performed and site of procedure. IV sedation was accomplished with a combination of 2mg of Versed and 50mcg of Fentanyl was administered by the RN after DO order, titrated to patient comfort during the course of the procedure while the patient remained responsive to all verbal commands In the prone position, following sterile prep and drape of the lumbar region, the L4/5 translaminar space was identified fluoroscopically. The skin was anesthetized via a 25-gauge, 1.5inch needle with 1% lidocaine solution. At this point, a 22-gauge short bevel spinal needle was atraumatically introduced and advanced under fluoroscopic guidance into the region of the L4/5 translaminar space. Depth was confirmed on lateral view. Radiological data, including multiple fluoroscopic views of the lumbar spine, reveal a spinal needle at the L4/5 translaminar space. Lateral views then show placement of the needle in the epidural space. Subsequent views show contrast material flowing superiorly and inferiorly in the epidural space. No vascular or intrathecal uptake is observed. At this point, using loss of resistance technique with saline and air, the epidural space was entered. This was confirmed following negative aspiration with injection of approximately 1.5cc of Isovue 200, showing excellent epidural flow without vascular or intrathecal uptake. At this point, 1cc of 1% lidocaine solution combined with 2cc or 10mg of dexamethasone and 6mg betamethasone was injected without incident. The patient tolerated the procedure well without signs or symptoms of comp lications prior to transfer to the recovery area continued monitoring without incident. The patient was then transferred to the recovery area where they were observed for an appropriate period of time after the injection. The patient reported a VAS score of 9 prior to the procedure and a post- procedure VAS of 2. POST OP INSTRUCTIONS The patient was provided a Pain Log to continue to record their response to the target-specific procedure prior to follow-up visit with their referring physician. Additionally, specific post-injection care instructions and a contact number to our office were provided if concerns arise regarding possible complications associated with the procedure are suspected.
== END 2023-03-08 16:14 | disposition home or self-care (01) ==
PROVIDERS: PCP Family Medicine; Referring Provider Physical Medicine & Rehabilitation; Visit Provider Physical Medicine & Rehabilitation
DX: M51.26 Other intervertebral disc displacement, lumbar region (principal); M48.061 Spinal stenosis, lumbar region without neurogenic claudication
CPT/HCPCS: 62323; 99152; J1100; J2250; J3010; J3490

== ENCOUNTER 2023-04-21 08:31 | Outpatient (CLI) | payer MEDICARE, MEDICAID, SELFPAY ==
[2023-04-21] VITALS (8 sets, daily range): BP systolic 123–175; BP diastolic 68–87; PULSE 63–81; RESP 11–18; TEMP 36.3; O2SAT 95–100
--- NOTE | 2023-04-21 09:45 | DI.RAD.S_ITS ---
PROCEDURE: PAIN C/T FACET INJ/BLK 1ST L INDICATIONS: SPINAL STENOSIS COMPARISON: None. FINDINGS: Fluoroscopic spot filming was performed to verify placement of spinal needles at the C4-C5 and C5-C6 right facet joint level(s), as labeled on the films. Appropriate location(s) of the needle tip(s) was confirmed by injection of iodinated contrast. IMPRESSION: Needle placement overlying right C4-C5 and C5-C6 facet joint with contrast injection. Approved by: Kerri Ames M.D. on 04/21/2023 at 13:44
[2023-04-21] MEDS: MIDAZOLAM 2 MG/2 ML VIAL IV (11:05)
[2023-04-21] MEDS: iopamidoL 15 ML VIAL 3 ML INJ (11:07)
[2023-04-21] MEDS: DEXAMETHASONE 10 MG/ML VIAL 20 MG INJ (11:07)
--- NOTE | 2023-04-21 11:17 | P.PCN_ITS ---
Date/Time/Diagnoses Date of procedure: 04/21/23 Time of procedure: 11:17 Pre-procedure diagnosis: 1. FACET ARTHROPATHY 2. AXIAL NECK PAIN Post-procedure diagnosis: same Procedure Notes Procedure: 1. FLUOROSCOPICALLY GUIDED, CONTRAST-CONTROLLED RIGHT C4/5, C5/6 FACET JOINT INJECTIONS WITH CONSCIOUS SEDATION. Indications: Hillary is referred by Dr. Ford for treatment of Axial Neck Pain Physician: Aries Valdez Total Fluoroscopy time (seconds): 11 Total sedation minutes: 9 Complications: none Procedure in detail & Post-procedure care: DESCRIPTION OF PROCEDURE Fluoroscopically guided, contrast-controlled right C4/5, C5/6 facet joint injections with conscious sedation. Following review of allergy and review of potential side effects and complications, including, but not necessarily limited to, infection, allergic reaction, local tissue breakdown, stroke, temporary or permanent nerve injury and paralysis, the patient indicated that the patient understood and agreed to proceed. An informed consent document was signed by the patient, witnessed by a nurse, and placed in the patient's chart. Additionally, other treatment options including medications, modalities, and physical therapy were reviewed with the patient. After review of previous anaesthesic history and IV conscious sedation the patient was deemed safe to proceed with today?s procedure with IV conscious sedation as ASA class II designation. Safety time-out was performed to confirm patient ID, procedure to be performed and site of procedure. IV sedation was accomplished with a combination of 2mg of Versed was administered by the RN after DO order, titrated to patient comfort during the course of the procedure while the patient remained responsive to all verbal commands In the prone position, following sterile prep and drape of the cervical spine region, the posterior aspect of the right C4/5, C5/6 facet joints were identified fluoroscopically. The skin was anesthetized via a 25-gauge 1.5-inch needle with 1% lidocaine solution into the corresponding facet joints. At this point, a 25-gauge 2.5-inch spinal needle was atraumatically introduced and advanced under fluoroscopic guidance into the corresponding facet joints. Following negative aspiration, injections of approximately 0.2-cc of Isovue 200 confirmed interarticular placement without vascular uptake. At this point, a total of 1 cc including 0.5 cc or 5 mg of dexamethasone combined with 0.5 cc of 1% lidocaine solution was injected without complication into each of the corresponding facet joints. The procedure tolerated the procedure well without signs or symptoms of complications prior to transfer to the recovery area continued monitoring without incident. The patient was then transferred to the recovery area where they were observed for an appropriate period of time after the injection. The patient reported a VAS score of 7 prior to the procedure and a post- procedure VAS of 0. POST OP INSTRUCTIONS They were provided a Pain Log to continue to record their response to the target-specific procedure prior to their follow-up visit with their referring physician. Additionally, specific post-injection care instructions and a contact number to our office were provided if concerns arise regarding possible complications associated with the procedure are suspected.
== END 2023-04-21 11:35 | disposition home or self-care (01) ==
LOC: RAD 08:31
PROVIDERS: PCP Family Medicine; Referring Provider Physical Medicine & Rehabilitation; Visit Provider Physical Medicine & Rehabilitation
DX: M47.812 Spondylosis without myelopathy or radiculopathy, cervical region (principal)
CPT/HCPCS: 64490; 64491; J1100; J2250

== ENCOUNTER → 2023-07-01 13:16 | Outpatient (CLI) | payer MEDICARE, MEDICAID, SELFPAY ==
--- NOTE | 2023-07-01 13:17 | DI.RAD.S_ITS ---
PROCEDURE: XR CERVICAL SPINE 4V OR 5V INDICATIONS: NECK PAIN TECHNIQUE: 5 views of the cervical spine acquired. COMPARISON: None. FINDINGS: Bones: No fractures or dislocations to the T1 level. Oblique images demonstrate mild to moderate bilateral middle 3rd and lower 3rd cervical bony foraminal stenoses associated with facet and uncovertebral joint degenerative osteoarthritic spurring. Degenerative disc disease is at least moderate from C 3 through C6. Soft tissues: No prevertebral soft tissue swelling. IMPRESSION: Degenerative changes as discussed, no evidence of trauma or subluxation. Multilevel spinal and foraminal stenosis likely is present and would be more accurately depicted by MR scanning if clinically warranted. Dictated by: Leonardo Jose M.D. on 07/01/2023 at 13:55 Approved by: Leonardo Jose M.D. on 07/01/2023 at 13:57
== END ==
LOC: RAD 13:17
PROVIDERS: PCP Family Medicine; Referring Provider Physical Medicine & Rehabilitation; Visit Provider Physical Medicine & Rehabilitation
DX: M47.22 Other spondylosis with radiculopathy, cervical region (principal); M50.11 Cervical disc disorder with radiculopathy, high cervical region
CPT/HCPCS: 72050

== ENCOUNTER → 2023-10-19 11:05 | Outpatient (CLI) | payer MEDICARE, MEDICAID, SELFPAY ==
--- NOTE | 2023-10-19 11:06 | DI.MRI.S_ITS ---
PROCEDURE: MR LUMBAR SPINE WO CON INDICATIONS: Spondylosis with radiculopathy, lumbar region TECHNIQUE: Noncontrast sagittal T1 spin echo and T2 fast echo, sagittal STIR, and T2 fast spin echo through the lumbar spine. In cases with scoliosis, additional coronal T2 fast spin echo may be performed. COMPARISON: [facility], , MR LUMBAR SPINE WO CON, 07/21/2020, 14:23. FINDINGS: Image quality: Excellent. Alignment and Curvature: There is normal bony alignment. Bone Marrow: L3-4 interbody fusion with posterior brendan and screw instrumentation Spinal Cord: Conus medullaris terminates at the L1 level. Visualized cord demonstrates normal signal and size. Paraspinous Soft Tissues: No paravertebral masses. T12-L1: Normal appearance. L1-L2: Disc bulge and arthropathy. Mild central stenosis. Moderate bilateral foraminal stenosis L2-L3: A disc bulge and arthropathy. Moderate central stenosis. Moderate bilateral foraminal stenosis L3-L4: Discectomy and fusion. No central stenosis. Mild bilateral foraminal stenosis L4-L5: Disc bulge, arthropathy and ligamentum flavum laxity. Moderate central stenosis. Moderate bilateral foraminal stenosis L5-S1: Disc space narrowing. Mild central and no right foraminal stenosis. Moderate left foraminal stenosis IMPRESSION: Multilevel degenerative disc disease and arthropathy results in varying degrees of central and foraminal stenosis including moderate central stenosis L2-3 and L4-5 L3-4 instrumented interbody fusion Dictated by: Elieser Dumas M.D. on 10/20/2023 at 11:10 Approved by: Elieser Dumas M.D. on 10/20/2023 at 11:44
== END ==
PROVIDERS: PCP Family Medicine; Referring Provider Neurological Surgery; Visit Provider Neurological Surgery
DX: M47.26 Other spondylosis with radiculopathy, lumbar region (principal); M51.16 Intervertebral disc disorders with radiculopathy, lumbar region; M48.061 Spinal stenosis, lumbar region without neurogenic claudication; Z98.1 Arthrodesis status
CPT/HCPCS: 72148

== ENCOUNTER → 2024-03-30 10:40 | Outpatient (CLI) | payer MEDICARE, MEDICAID, SELFPAY ==
--- NOTE | 2024-03-30 10:42 | DI.MRI.S_ITS ---
PROCEDURE: MR LUMBAR SPINE WO CON INDICATIONS: Right greater than left lower extremity weakness and pain st TECHNIQUE: Noncontrast sagittal T1 spin echo and T2 fast echo, sagittal STIR, axial T1 and T2 fast spin echo through the lumbar spine. Axial and oblique coronal T1 spin echo and STIR through the sacrum. In cases with scoliosis, additional coronal T2 fast spin echo may be performed. COMPARISON: [facility], MR, MR LUMBAR SPINE WO CON, 10/19/2023, 11:13. FINDINGS: Image quality: Excellent. Alignment and Curvature: There is normal bony alignment. Bone Marrow: L3-4 discectomy and fusion with posterior brendan and screw instrumentation. Left L3-4 and L4-5 laminotomy. Spinal Cord: Conus medullaris terminates at the L1 level. Visualized cord demonstrates normal signal and size. Paraspinous Soft Tissues: No paravertebral masses. T12-L1: Normal appearance. L1-L2: Disc bulge and arthropathy results in dydc-oz-slmynrhp central stenosis. Moderate bilateral foraminal stenosis L2-L3: Disc bulge and arthropathy. Hypertrophic ligamentum flavum. Moderate central stenosis. Moderate bilateral foraminal stenosis. L3-L4: Discectomy and fusion. No central stenosis. Mild bilateral foraminal stenosis. L4-L5: Disc bulge and arthropathy. Mild central stenosis. Moderate bilateral foraminal stenosis L5-S1: Arthropathy. No central stenosis. Moderate left and no right foraminal stenosis. IMPRESSION: Multilevel degenerative disc disease and arthropathy results in varying degrees of central and foraminal stenosis including moderate central and bilateral foraminal stenosis L2-3 L3-4 instrumented discectomy and fusion REFERENCE DELETE FROM FINAL REPORT Less common manifestations of disc degeneration: * dorsal epidural disc herniation. * intradural disc herniation (may have beaklike morphology). * symptomatic thoracic herniation: often, calcified, intradural. * far lateral disc herniation. * discal cyst: may have blood-fluid level. * fibrocartilaginous embolism of disc material to spinal cord. * calcified disc or bony spicule causing spinal CSF leak. Lumbar disc nomenclature v2.0: Recommendations of the combined task forces of the [place] [employer], [place] [employer], and [place] [employer] Annular fissures: seen as high intensity zones on MRI. Concentric, radial, transverse. Degeneration encompasses: desiccation, fibrosis, disc narrowing, diffuse bulge, fissuring, mucinous degeneration of annulus, intradiscal gas, vertebral apophyseal osteophytes, end plate defects, inflammatory changes and sclerosis (Modic types I-III). Disc herniation: localized or focal displacement of disc material less than 25% (90 degrees) of disc periphery on axial images. Diffuse bulging and asymmetric bulging (>25%) are not considered herniation. * Protrusion, extrusion, sequestration. * Disc fragment can migrate (refers only to position, not contiguity). * Intravertebral herniations (aka Schmorl nodes). * Herniations may be contained (if covered by intact outer annulus and/or PLL) vs uncontained. Subligamentous is considered synonymous with contained. A sequestered and/or migrated disc fragment can still be contained. Canal and foraminal stenosis: use 2-D measurements at site of most marked compromise. * Mild: canal compromise of less than 1/3. * Moderate: canal compromise of 1/3 to 2/3. * Severe: canal compromise of greater than 2/3. Location descriptors: * Central, right/left central, right/left subarticular, right/left foraminal, right/left extraforaminal or far lateral. Right/left central should supersede paracentral (a more general term). * In sagittal plane: discal, infrapedicular, suprapedicular, or pedicular. Approved by: Elieser Dumas M.D. on 03/30/2024 at 17:13
== END ==
PROVIDERS: PCP Family Medicine; Referring Provider Physical Medicine & Rehabilitation; Visit Provider Physical Medicine & Rehabilitation
DX: M51.26 Other intervertebral disc displacement, lumbar region (principal); M51.27 Other intervertebral disc displacement, lumbosacral region; M47.816 Spondylosis without myelopathy or radiculopathy, lumbar region; M47.817 Spondylosis without myelopathy or radiculopathy, lumbosacral region; M51.369 Other intervertebral disc degeneration, lumbar region without mention of lumbar back pain or lower extremity pain; M51.379 Other intervertebral disc degeneration, lumbosacral region without mention of lumbar back pain or lower extremity pain; M48.061 Spinal stenosis, lumbar region without neurogenic claudication; M48.07 Spinal stenosis, lumbosacral region; Z98.1 Arthrodesis status
CPT/HCPCS: 72148

== ENCOUNTER 2024-05-10 14:24 | Outpatient (CLI) | payer MEDICARE, MEDICAID, SELFPAY ==
[2024-05-10] VITALS (10 sets, daily range): BP systolic 156–179; BP diastolic 57–89; PULSE 62–67; RESP 12–20; TEMP 37.1; O2SAT 96–100
--- NOTE | 2024-05-10 14:25 | DI.RAD.S_ITS ---
PROCEDURE: PAIN L/S TRANSFORAM INJECT BIN COMPARISON: None. INDICATIONS: Bin L2/3 TF JOCELYNE FINDINGS: Fluoroscopic guidance during bilateral L2-L3 transforaminal epidural spinal injections. IMPRESSION: Intra procedural examination demonstrating appropriate positions of the needles. Dictated by: Ok Zavaleta M.D. on 05/11/2024 at 9:54 Approved by: Ok Zavaleta M.D. on 05/11/2024 at 9:55
[2024-05-10] MEDS: MIDAZOLAM 2 MG/2 ML VIAL IV (15:51)
[2024-05-10] MEDS: BUPIVACAINE 0.25% (PF) VIAL 2 ML INJ (15:55)
[2024-05-10] MEDS: BETAMETHASONE 30 MG/5 ML MDV 12 MG INJ (15:55)
[2024-05-10] MEDS: DEXAMETHASONE 10 MG/ML VIAL 20 MG INJ (15:55)
[2024-05-10] MEDS: iopamidoL 15 ML VIAL 3 ML INJ (15:56)
--- NOTE | 2024-05-10 16:22 | P.PCN_ITS ---
Date/Time/Diagnoses Date of procedure: 05/10/24 Time of procedure: 16:22 Pre-procedure diagnosis: 1. FORAMINAL STENOSIS WITH LE SYMPTOMS Post-procedure diagnosis: same Procedure Notes Procedure: 1. FLUOROSCOPICALLY GUIDED CONTRAST CONTROLLED TRANSFORAMINAL EPIDURAL STEROID INJECTION - BILATERAL L2/3 TFESI Indications: Hillary is referred by Dr. Ford for treatment of Foraminal Stenosis with bilateral LE Symptoms Physician: Aries Valdez Total Fluoroscopy time (seconds): 23 Total sedation minutes: 23 Complications: none Procedure in detail & Post-procedure care: FINDINGS Foraminal Nerve Root Compression secondary to disc disease and facet hypertrophy DESCRIPTION OF PROCEDURE Following review of allergy and review of potential side effects and complications, including, but not necessarily limited to, infection, allergic reaction, local tissue breakdown, stroke, temporary or permanent nerve injury, paralysis, and possible , the patient indicated that the patient understood and agreed to proceed. An informed consent document was signed by the patient, witnessed by a nurse, and placed in the patient's chart. Additionally, other treatment options including medications, modalities, and physical therapy were reviewed with the patient. After review of previous anaesthesic history and IV conscious sedation the patient was deemed safe to proceed with today?s procedure with IV conscious sedation as ASA class II designation. Safety time-out was performed to confirm patient ID, procedure to be performed and site of procedure. IV sedation was accomplished with a combination of 2mg of Versed was administered by the RN after DO order, titrated to patient comfort during the course of the procedure while the patient remained responsive to all verbal commands In the prone position following sterile prep and drape of the lumbar region, the right L2/3 posterior neuroforamen was identified fluoroscopically. The skin was anesthetized via a 25-gauge 1.5-inch needle with 1% lidocaine solution. At this point, a 25-gauge 3.5-inch spinal needle was atraumatically introduced and advanced under fluoroscopic guidance through the posterior right L2/3 neuroforamen to approximately the anterior aspect of the canal. Depth was confirmed on lateral view. Following negative aspiration, injection of approximately 1.5cc of Isovue 200 under live fluoroscopy in the AP view confirmed excellent flow along the nerve root, into the epidural space without vascular or intrathecal uptake observed Radiological data, including multiple fluoroscopic views of the lumbosacral spine, reveal a spinal needle at the right L2/3 posterior neuroforamen. Subsequent views show flow of contrast material flowing superiorly and inferiorly along the nerve root confirming epidural flow. Subsequently, a test dose of 1.5cc of 1% lidocaine solution was administered and patient was observed for two minutes for signs or symptoms of complications, including abdominal pain, shortness of breath, bilateral upper or lower extremity weakness, nausea and vomiting, prior to steroid injection. At this point, a total of 2cc or 10mg of dexamethasone and 6mg betamethasone was injected without incident. Attention was then refocused to the left L2/3 level where the identical procedure was replicated. The procedure tolerated the procedure well without signs or symptoms of complications prior to transfer to the recovery area continued monitoring without incident. The patient was then transferred to the recovery area where they were observed for an appropriate time after the injection. The patient reported a VAS score of 7 prior to the procedure and a post-procedure VAS of 0. POST OP INSTRUCTIONS The patient was provided a Pain Log to continue to record their response to the target-specific procedure prior to follow-up visit with their referring physician. Additionally, specific post-injection care instructions and a contact number to our office were provided if concerns arise regarding possible complica tions associated with the procedure are suspected.
== END 2024-05-10 16:40 | disposition home or self-care (01) ==
PROVIDERS: PCP Family Medicine; Referring Provider Physical Medicine & Rehabilitation; Visit Provider Physical Medicine & Rehabilitation
DX: M48.061 Spinal stenosis, lumbar region without neurogenic claudication (principal); M51.16 Intervertebral disc disorders with radiculopathy, lumbar region; M47.26 Other spondylosis with radiculopathy, lumbar region
CPT/HCPCS: 64483; 99152; 99153; J0702; J1100; J2250; J3490

== ENCOUNTER → 2024-07-17 11:27 | Outpatient (CLI) | payer MEDICARE, MEDICAID, SELFPAY ==
[2024-07-17 11:52] LABS: Add Manual Diff / Slide Review NO; Basophils Absolute Auto 100 /uL (0-100); Basophils Percent Auto 1.2 % (0-2); Eosinophils Absolute Auto 300 /uL (0-450); Eosinophils Percent Auto 3.4 % (2-4); Hematocrit 43.4 % (36-46); Hemoglobin 14.7 g/dL (12.0-16.0); Lymphocytes Absolute Auto 2100 /uL (1100-4500); Lymphocytes Percent Auto 28.8 % (25-40); Mean Corpuscular HGB Conc 33.8 % (30-36); Mean Corpuscular Hemoglobin 30.9 PG (26-34); Mean Corpuscular Volume 91.3 fL (80-100); Monocytes Absolute Auto 700 /uL (0-900); Neutrophils Absolute Auto 4200 /uL (1500-7000); Neutrophils Percent Auto 57.6 % (50-75); Platelet Count 237 X10^3/uL (150-400); Red Blood Cell Count 4.75 X10^6/uL (4.0-5.2); Red Cell Distribution Width 13.3 % (11.6-14.8); White Blood Cell Count 7.3 X10^3/uL (4.5-11.0)
[2024-07-17 12:11] LABS: Hemoglobin A1C% w Est Avg Glu 5.1 % (4.0-6.0)
[2024-07-17 12:13] LABS: Alanine Aminotransferase 20 IU/L (<35); Albumin 4.5 g/dL (3.5-5.0); Albumin Globulin Ratio 1.8 (1.0-2.8); Alkaline Phosphatase 58 U/L (38-126); Aspartate Aminotransferase 29 IU/L (14-36); BUN Creatinine Ratio 18.9 (6-22); Bilirubin Total 0.5 mg/dL (0.2-1.3); Blood Urea Nitrogen 18 mg/dL (7-17); Carbon Dioxide 26 mmol/L (22-32); Chloride 104 mmol/L (98-107); Cholesterol 314 mg/dL (140-199); Estimated Glomerular Filt Rate > 60 mL/min (>60); Globulin 2.5 g/dL (1.7-4.1); Glucose 87 mg/dL (80-110); HEMOLYSIS < 15 (0-50); Potassium 4.4 mmol/L (3.4-5.1); Sodium 139 mmol/L (137-145); Triglycerides 74 mg/dL (35-150)
[2024-07-17 12:21] LABS: HDL Cholesterol 121 mg/dL (40-60); LDL Cholesterol Calculated 178 mg/dL (<100)
[2024-07-17 12:39] LABS: Thyroid Stimulating Hormone 1.22 uIU/mL (0.47-4.68)
== END ==
PROVIDERS: PCP Family Medicine; Referring Provider Family Medicine; Visit Provider Family Medicine
DX: R03.0 Elevated blood-pressure reading, without diagnosis of hypertension (principal); R73.03 Prediabetes; E03.9 Hypothyroidism, unspecified
CPT/HCPCS: 36415; 80053; 80061; 83036; 84439; 84443; 85025

== ENCOUNTER 2024-09-11 09:24 | Outpatient (CLI) | payer MEDICARE, MEDICAID, SELFPAY ==
[2024-09-11] VITALS (9 sets, daily range): BP systolic 153–173; BP diastolic 69–81; PULSE 69–76; RESP 12–16; TEMP 37.3; O2SAT 96–100
[2024-09-11] MEDS: MIDAZOLAM 2 MG/2 ML VIAL IV (10:35)
[2024-09-11] MEDS: iopamidoL 15 ML VIAL 3 ML INJ (10:39)
[2024-09-11] MEDS: BETAMETHASONE 30 MG/5 ML MDV 12 MG INJ (10:40)
[2024-09-11] MEDS: BUPIVACAINE 0.5% (PF) 10 ML VIAL INJ (10:41)
[2024-09-11] MEDS: LIDOCAINE 1% 20 ML INJ (10:42)
[2024-09-11] MEDS: BETAMETHASONE 30 MG/5 ML MDV 6 MG INJ (10:43)
--- NOTE | 2024-09-11 10:54 | PM.PROC.IR.1 ---
Date/Time/Diagnoses Date of procedure: 09/11/24 Time of procedure: 10:54 Pre-procedure diagnosis: Sacroiliac joint pain/DJD Post-procedure diagnosis: same Procedure Notes Procedure: Fluoroscopic guided contrast controlled bilateral sacroiliac joint injection Indications: Hillary is referred by Dr. Ford for treatment of bilateral sacroiliac joint DJD Physician: Aries Valdez Total Fluoroscopy time (seconds): 14 Total sedation minutes: 12 Complications: none Procedure in detail & Post-procedure care: Description of procedure Fluoroscopic guided, contrast controlled bilateral sacroiliac joint injection Following review of allergies and review of potential side effects and complications, including, but not necessarily limited to, infection, allergic reaction, local tissue breakdown, temporary as well as permanent nerve injury, paralysis, stroke and possible , the patient indicated that they understood and agreed to proceed. An informed consent was signed by the patient, witnessed by a nurse, and placed in the patient's chart. Additionally, other treatment options including modalities, medications, and physical therapy were reviewed with the patient. After review of previous anaesthesic history and IV conscious sedation the patient was deemed safe to proceed with today?s procedure with IV conscious sedation as ASA class II designation. Safety time-out was performed to confirm patient ID, procedure to be performed and site of procedure. IV sedation was accomplished with a combination of 2mg Versed was administered by the RN after DO order, titrated to patient comfort during the course of the procedure while the patient remained responsive to all verbal commands In the prone position following sterile prep and drape of the pelvic region, the hyper lucency on in the inferior aspect of the sacroiliac joint was identified fluoroscopically the skin was anesthetized be a 25 gauge 1.5 inch needle with approximately 2cc of 1% lidocaine solution. At this point, a 22 gauge 3 in spinal needle was atraumatically introduced and advanced under fluoroscopic guidance into the inferior aspect of the right sacroiliac joint. Following negative aspiration, approximately 0.3cc of Isovue-300 was injected confirming intra-articular placement without vascular uptake. Radiographic data, including multiple fluoroscopic views of the pelvis, reveals a spinal needle in the sacroiliac joint hyper lucent zone. Subsequent view show flow contrast tear superiorly and inferiorly within the joint capsule without vascular intrathecal uptake. At this point a total of 1cc of 0.5% Marcaine was combined with 1cc of 6mg of betamethasone was injected without incident. Attention was then refocused the left sacroiliac joint where the procedure was replicated. The procedure tolerated the procedure well without signs or symptoms of complications prior to transfer to the recovery area continued monitoring without incident. The patient was then transferred to the recovery area with a bur observed for an appropriate time after the injection. The patient reverted a vas score of 7 prior to the procedure and post-procedure vas of 1. Postop instructions The patient was provided with a pain like to continue to record the patient's response to the target specific procedure prior to the patient's follow-up visit with the referring physician. Additionally, specific post injection care instructions and a contact number to our office were provided if concerns arise regarding the possible complications associated with procedure are suspected.
== END 2024-09-11 11:05 | disposition home or self-care (01) ==
PROVIDERS: PCP Family Medicine; Referring Provider Physical Medicine & Rehabilitation; Visit Provider Physical Medicine & Rehabilitation
DX: M46.1 Sacroiliitis, not elsewhere classified (principal); M53.3 Sacrococcygeal disorders, not elsewhere classified
CPT/HCPCS: 27096; 99152; J0702; J2250

== ENCOUNTER 2024-10-18 10:13 | Outpatient (CLI) | payer MEDICARE, MEDICAID, SELFPAY ==
[2024-10-18] VITALS (12 sets, daily range): BP systolic 116–188; BP diastolic 58–77; PULSE 54–67; RESP 16–18; TEMP 36.7; O2SAT 95–100
[2024-10-18] MEDS: MIDAZOLAM 2 MG/2 ML VIAL IV ×2 (11:37→11:52)
[2024-10-18] MEDS: DEXAMETHASONE 10 MG/ML VIAL 20 MG INJ (11:42)
[2024-10-18] MEDS: BETAMETHASONE 30 MG/5 ML MDV 12 MG INJ (11:43)
[2024-10-18] MEDS: iopamidoL 15 ML VIAL 3 ML INJ (11:43)
[2024-10-18] MEDS: LIDOCAINE 1% 20 ML INJ (11:44)
[2024-10-18] MEDS: BUPIVACAINE 0.25% (PF) VIAL 2 ML INJ (11:44)
[2024-10-18] MEDS: BETAMETHASONE 30 MG/5 ML MDV 6 MG INJ (11:45)
--- NOTE | 2024-10-18 12:02 | PM.PROC.IR.1 ---
Date/Time/Diagnoses Date of procedure: 10/18/24 Time of procedure: 12:02 Pre-procedure diagnosis: 1. FORAMINAL STENOSIS WITH LE SYMPTOMS Procedure Notes Procedure: 1. FLUOROSCOPICALLY GUIDED CONTRAST CONTROLLED TRANSFORAMINAL EPIDURAL STEROID INJECTION - BILATERAL L4/5 TFESI Indications: Hillary is referred by Dr. Ford for treatment of Foraminal Stenosis with bilateral LE Symptoms Physician: Aries Valdez Total Fluoroscopy time (seconds): 19 Total sedation minutes: 21 Complications: none Procedure in detail & Post-procedure care: FINDINGS Foraminal Nerve Root Compression secondary to disc disease and facet hypertrophy DESCRIPTION OF PROCEDURE Following review of allergy and review of potential side effects and complications, including, but not necessarily limited to, infection, allergic reaction, local tissue breakdown, stroke, temporary or permanent nerve injury, paralysis, and possible , the patient indicated that the patient understood and agreed to proceed. An informed consent document was signed by the patient, witnessed by a nurse, and placed in the patient's chart. Additionally, other treatment options including medications, modalities, and physical therapy were reviewed with the patient. After review of previous anaesthesic history and IV conscious sedation the patient was deemed safe to proceed with today?s procedure with IV conscious sedation as ASA class II designation. Safety time-out was performed to confirm patient ID, procedure to be performed and site of procedure. IV sedation was accomplished with a combination of 4mg of Versed was administered by the RN after DO order, titrated to patient comfort during the course of the procedure while the patient remained responsive to all verbal commands In the prone position following sterile prep and drape of the lumbar region, the right L4/5 posterior neuroforamen was identified fluoroscopically. The skin was anesthetized via a 25-gauge 1.5-inch needle with 1% lidocaine solution. At this point, a 25-gauge 3.5-inch spinal needle was atraumatically introduced and advanced under fluoroscopic guidance through the posterior right L4/5 neuroforamen to approximately the anterior aspect of the canal. Depth was confirmed on lateral view. Following negative aspiration, injection of approximately 1.5cc of Isovue 200 under live fluoroscopy in the AP view confirmed excellent flow along the nerve root, into the epidural space without vascular or intrathecal uptake observed Radiological data, including multiple fluoroscopic views of the lumbosacral spine, reveal a spinal needle at the right L4/5 posterior neuroforamen. Subsequent views show flow of contrast material flowing superiorly and inferiorly along the nerve root confirming epidural flow. Subsequently, a test dose of 1.5cc of 1% lidocaine solution was administered and patient was observed for two minutes for signs or symptoms of complications, including abdominal pain, shortness of breath, bilateral upper or lower extremity weakness, nausea and vomiting, prior to steroid injection. At this point, a total of 2cc or 10mg of dexamethasone and 6mg betamethasone was injected without incident. Attention was then refocused to the left L4/5 level where the identical procedure was replicated. The procedure tolerated the procedure well without signs or symptoms of complications prior to transfer to the recovery area continued monitoring without incident. The patient was then transferred to the recovery area where they were observed for an appropriate time after the injection. The patient reported a VAS score of 9 prior to the procedure and a post-procedure VAS of 1. POST OP INSTRUCTIONS The patient was provided a Pain Log to continue to record their response to the target-specific procedure prior to follow-up visit with their referring physician. Additionally, specific post-injection care instructions and a contact number to our office were provided if concerns arise regarding possible complications associated with the procedure are suspected.
== END 2024-10-18 12:47 | disposition home or self-care (01) ==
LOC: RAD 10:13
PROVIDERS: PCP Family Medicine; Referring Provider Physical Medicine & Rehabilitation; Visit Provider Physical Medicine & Rehabilitation
DX: M51.16 Intervertebral disc disorders with radiculopathy, lumbar region (principal); M51.26 Other intervertebral disc displacement, lumbar region; Z98.1 Arthrodesis status
CPT/HCPCS: 64483; 99152; J0702; J1100; J2250; J3490

== ENCOUNTER → 2025-02-11 11:53 | Outpatient (CLI) | payer MEDICARE, MEDICAID, SELFPAY ==
[2025-02-11 13:01] LABS: Alanine Aminotransferase 16 IU/L (<35); Albumin 4.0 g/dL (3.5-5.0); Albumin Globulin Ratio 1.5 (1.0-2.8); Alkaline Phosphatase 58 U/L (38-126); Blood Urea Nitrogen 16 mg/dL (7-17); Calcium 9.7 mg/dL (8.4-10.2); Carbon Dioxide 27 mmol/L (22-32); Chloride 103 mmol/L (98-107); Estimated Glomerular Filt Rate > 60 mL/min (>60); Globulin 2.7 g/dL (1.7-4.1); Glucose 91 mg/dL (70-99); HEMOLYSIS < 15 (0-50); Potassium 4.8 mmol/L (3.4-5.1); Sodium 136 mmol/L (137-145); Total Protein 6.7 g/dL (6.3-8.2)
[2025-02-11 13:16] LABS: Free T4, Direct Thyroxine 1.64 ng/dL (0.78-2.19)
[2025-02-11 13:30] LABS: Thyroid Stimulating Hormone 0.042 uIU/mL (0.47-4.68)
== END ==
PROVIDERS: PCP Family Medicine; Referring Provider Family Medicine; Visit Provider Family Medicine
DX: E03.9 Hypothyroidism, unspecified (principal); R03.0 Elevated blood-pressure reading, without diagnosis of hypertension; M81.0 Age-related osteoporosis without current pathological fracture
CPT/HCPCS: 36415; 80053; 84439; 84443